=== PATIENT | female | born 1960 | race Caucasian/White ===

== ENCOUNTER 2017-02-19 15:30 | Outpatient (CLI) | payer BC, OTHER | END 2017-02-19 23:59 | DX: R10.2 Pelvic and perineal pain (principal); N39.0 Urinary tract infection, site not specified ==

== ENCOUNTER 2017-02-20 16:40 | Outpatient (CLI) | payer BC, OTHER | END 2017-02-20 16:41 | disposition home or self-care (01) | DX: R19.09 Other intra-abdominal and pelvic swelling, mass and lump (principal) ==

== ENCOUNTER 2017-03-12 10:42 | Outpatient (CLI) | payer OTHER | END 2017-03-12 10:43 | disposition home or self-care (01) | DX: R19.09 Other intra-abdominal and pelvic swelling, mass and lump (principal); E11.9 Type 2 diabetes mellitus without complications ==

== ENCOUNTER 2017-04-04 08:00 | Outpatient (CLI) | payer OTHER | END 2017-04-04 08:01 | disposition home or self-care (01) | DX: L03.90 Cellulitis, unspecified (principal) ==

== ENCOUNTER 2017-05-02 14:57 | Outpatient (CLI) | payer OTHER ==
--- NOTE | 2017-05-03 10:11 | Ultrasound Report ---
EXAM: ABDOMEN ULTRASOUND EXAM DATE: 05/02/2017 05:00 PM. CLINICAL HISTORY: Elevated liver function tests. COMPARISON: 03/02/2012. TECHNIQUE: Real-time scanning was performed with static images obtained. FINDINGS: Liver: Liver parenchyma is heterogeneous and markedly hyperechoic. No discrete liver masses or intr ahepatic bile duct dilation. However, evaluation for masses is limited secondary to the echogenicity . 19.9 cm. Main portal vein flow: Hepatopetal. Gallbladder: Surgically absent. Biliary System: Common bile duct measures 5.2 mm. No intrahepatic or extrahepatic ductal dilatation. Pancreas: Partially obscured by bowel gas. Kidneys: Right: 10.3 cm longitudinally. Normal. No contour-deforming mass, stones, or hydronephrosis. Cortical thinning is noted in the right upper kidney. Left: 10.8 cm longitudinally. Mild left pelviectasis. No left renal mass or stones. Spleen: 13.2 x 5.4 x 6 cm. Normal in size and echotexture. Aorta and Inferior Vena Cava: Partially obscured by bowel gas. IMPRESSION: 1. Markedly fatty liver. No mass. 2. Gallbladder surgically absent. No common bile duct dilation. 3. Pancreas partially obscured by bowel gas. [facility] Referring Provider Line: [phone] SITE ID: [id number]
== END 2017-05-02 14:58 | disposition home or self-care (01) ==
LOC: DI 14:57
PROVIDERS: ATTEND Internal Medicine Hematology & Oncology
DX: K76.0 Fatty (change of) liver, not elsewhere classified (principal); Z90.49 Acquired absence of other specified parts of digestive tract
CPT/HCPCS: 76700

== ENCOUNTER 2017-05-16 08:00 | Outpatient (CLI) | payer OTHER ==
[2017-05-16 13:27] LABS: BILIRUBIN,URINE NEGATIVE (NEGATIVE); PH,URINE 5.5 PH (5.0-7.5)
== END 2017-05-16 23:59 ==
LOC: LAB 08:00
PROVIDERS: ATTEND Surgery
DX: C56.9 Malignant neoplasm of unspecified ovary (principal)
CPT/HCPCS: 81003; 87086

== ENCOUNTER 2017-05-21 11:26 | Outpatient (CLI) | payer OTHER ==
[2017-05-21 12:05] LABS: BASOPHILS % (AUTO) 0.5 %; EOSINOPHILS # (AUTO) 0.2 10^3/uL (0.0-0.7); EOSINOPHILS % (AUTO) 5.3 %; HCT - HEMATOCRIT 30.4 % (37.0-47.0); LYMPHOCYTES # (AUTO) 1.1 10^3/uL (1.5-3.5); LYMPHOCYTES % (AUTO) 33.7 %; MEAN CORPUSCULAR HEMOGLOBIN 30.1 pg (27.0-31.0); MEAN CORPUSCULAR HGB CONC 36.1 g/dL (32.0-36.0); MEAN CORPUSCULAR VOLUME 83.5 fL (81.0-99.0); MEAN PLATELET VOLUME 7.9 fL (7.9-10.8); MONOCYTES # (AUTO) 0.3 10^3/uL (0.0-1.0); MONOCYTES % (AUTO) 9.8 %; NEUTROPHILS # (AUTO) 1.6 10^3/uL (1.5-6.6); NEUTROPHILS % (AUTO) 50.7 %; RED BLOOD COUNT 3.64 10^6/uL (4.20-5.40); RED CELL DISTRIBUTION WIDTH 13.8 % (12.0-15.0); UNCORRECTED WHITE BLOOD COUNT 3.2 x10^3/uL; WHITE BLOOD COUNT 3.2 x10^3/uL (4.8-10.8)
[2017-05-21 12:19] LABS: ALBUMIN/GLOBULIN RATIO 1.3 (1.0-2.2); BILIRUBIN,TOTAL 0.8 mg/dL (0.2-1.0); CALCIUM 8.5 mg/dL (8.5-10.3); CREATININE 0.9 mg/dL (0.4-1.0); POTASSIUM 2.8 mmol/L (3.5-5.0)
== END 2017-05-21 11:27 | disposition home or self-care (01) ==
LOC: LAB 11:26
PROVIDERS: ATTEND Physician Assistant Medical
DX: N28.9 Disorder of kidney and ureter, unspecified (principal)
CPT/HCPCS: 36415; 80053; 85025; 87086

== ENCOUNTER → 2017-05-23 | Outpatient (CLI) | payer OTHER ==
[2017-05-23 13:28] LABS: CALCIUM 8.6 mg/dL (8.5-10.3); CREATININE 0.7 mg/dL (0.4-1.0); MAGNESIUM 1.3 mg/dL (1.7-2.8); POTASSIUM 3.2 mmol/L (3.5-5.0)
== END ==
LOC: LAB.WCP 08:00
PROVIDERS: ATTEND Physician Assistant Medical
DX: N28.9 Disorder of kidney and ureter, unspecified (principal)
CPT/HCPCS: 36415; 80048; 83735

== ENCOUNTER 2017-06-02 12:35 | Day surgery (SDC) | payer OTHER ==
[~2017-06-02 12:35] MED LIST: ceFAZolin 2 GM/50 ML 50 ML IV ONE
[2017-06-02] MEDS ORDERED: LACTATED RINGERS 1,000 ML IV ONE ×2 (12:40→14:25)
[2017-06-02] MEDS ORDERED: SCOPOLAMINE PATCH TOP ONE (12:56)
--- NOTE | 2017-06-02 13:30 | HISTORY & PHYSICAL EXAMINATION ---
HPI - History of Present Illness HPI Comment/Other: Rosalia was recently diagnosed with ovarian cancer and underwent a total hysterectomy and oophrectomy last month. She is here today in consultation for port placement for intravenous chemotherapy. She has never had surgery on her chest wall or radiation to her chest wall. She denies any history of blood clots. She was on Lovenox after her surgery for prophylaxis but this has been discontinued. She was seen in my office last month and scheduled for surgery but developed a UTI and it was postponed. She has cleared her UTI with antibiotics and is now ready to proceed with the port. Current Meds: TRANSDERM-SCOP 1.5 MG PT72 (SCOPOLAMINE BASE) Place one disc behind ear at least four hours before travel and then every three days as needed for motion sickness BACTROBAN 2 % OINT (MUPIROCIN) Apply to affected areas three times daily VICTOZA 18 MG/3ML SOLN (LIRAGLUTIDE) Inject 1.8mg daily OMEPRAZOLE 20 MG CPDR (OMEPRAZOLE) Take one capsule by mouth daily NYSTATIN 013505 UNIT/GM POWD (NYSTATIN) Apply under breasts once daily as needed to prevent rash NYSTATIN 441719 UNIT/GM CREA (NYSTATIN) Apply to affected areas under breasts daily until symptoms resolved HYDROCHLOROTHIAZIDE 50 MG TABS (HYDROCHLOROTHIAZIDE) Take one tablet by mouth every morning ONETOUCH GOOMIO STRP (GLUCOSE BLOOD) Check sugar once daily (fasting or 2hrs after eating) LOSARTAN POTASSIUM 100 MG TABS (LOSARTAN POTASSIUM) Take one tablet by mouth daily PRAVACHOL 40 MG TABS (PRAVASTATIN SODIUM) Take one tablet by mouth at bedtime FELODIPINE 10 MG [id number]-FVJ (FELODIPINE) Take one tablet by mouth daily TOPROL XL 100 MG TB24 (METOPROLOL SUCCINATE) Take one tablet by mouth every day METFORMIN HCL 500 MG TABS (METFORMIN HCL) Take two tablets in the evening for diabetes ONETOUCH VERIO FLEX SYSTEM W/DEVICE KIT (BLOOD GLUCOSE MONITORING SUPPL) Test blood sugars once daily FLUTICASONE PROPIONATE 50 MCG/ACT SUSP (FLUTICASONE PROPIONATE) Use one spray each nostril twice daily Allergies: CEFDINIR (CEFDINIR) (Critical) PENICILLIN G POTASSIUM (Moderate) CLINDAMYCIN HCL (Moderate) Past Medical History: Reviewed history from 04/04/2017 and no changes required: HTN DM Hyperparathyroidism GERD Chronic diarrhea Diverticulosis (mild, CT abd/pel 2011) Ovarian ca 2017 - 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 Ojeda [facility] 2013 Cholecystectomy ? bladder sling Total abdominal hysterectomy, omentum removal, sigmoid resectionApr, 2016 No complications w/ surery or anesthesia Family History Summary: Reviewed history Last on 01/06/2014 and no changes required:05/02/2017 Mother () - Has a mother - Entered On: 03/12/2017 General Comments - FH: Mother. at 78, diabetes dx'd at 50, HTN, renal failure, TIAs, dementia Father. , murdered age 80. Hypertension stroke,CHF. Brother: HTN, HPL Brother: astranged Risk Factors: Smoked Tobacco Use: Never smoker Smokeless Tobacco Use: Never Passive smoke exposure: no Drug use: no HIV high-risk behavior: no Caffeine use: 2 drinks per day Alcohol use: no Exercise: no Seatbelt use: 100 % Sun Exposure: occasionally Family History Risk Factors: Family History of IN in females < 65 years old: no Family History of IN in males < 55 years old: no Previous Tobacco Use: Signed On - 03/26/2017 Smoked Tobacco Use: Never smoker Smokeless Tobacco Use: Never Passive smoke exposure: no Drug use: no HIV high-risk behavior: no Caffeine use: 2 drinks per day Previous Alcohol Use: Signed On 03/26/2017 Alcohol use: no Exercise: no Seatbelt use: 100 % Sun Exposure: occasionally Family History Risk Factors: Family History of IN in females < 65 years old: no Family History of IN in males < 55 years old: no Mammogram History: Date of Last Mammogram: 06/20/2015 Review of Systems See HPI General Denies fever/chills, Headaches or dizziness, Vision changes, Weight loss or gain, Nausea or vomiting, Cold or sore throat and Recent use of cortisone or Prednisone. Eyes Denies Difficulty seeing. ENT Denies Difficulty hearing, Hoarseness and Difficulty swallowing. CV Denies High blood presure, Chest pain or angina or other heart disease, Heart attack, Bypass surgery, Coronary stents, Irregular heartbeat or palpitations, Atrial fibrillation, Congestive Heart Failure, Heart valve disease , Pacemaker or defibrillator and Blood clots. Resp Denies Emphysema, Chronic bronchitis or COPD, Asthma or chronic cough, Cough sputum or blood, Sleep apnea or CPAP, Shortness of breath when resting and Shortness of breath after climbing 10 stairs. GI Denies Liver disease, Hepatitis A, Hepatitis B, Hepatitis C, Cirrhosis, Ulcers or GERD, Colitis and Abdominal pain. Acid Reflux Denies Difficulty urinating, Kidney stones kidney disease or failure, Sexually transmitted disease and Kidney or bladder infections. MS Denies Weakness arms or legs, Joint swelling, Joint deformity, Numbness, Gout and . Skin Denies Psoriasis or rash, Sores or cuts or holden and Other skin lesions. Neuro Denies Balance disturbance, Stroke or TIA, Numbness, Seizure disorder, Fainting spells and Neurological disease (Epilepsy or Parkinson's). Psych Denies Anxiety, Depression, Bipolar disorder and Schizophrenia. Endo Complains of Diabetes. Denies Thyroid problems. Blood Denies Anemia, Bleeding disorder, AIDS or HIV positive and Bleeding tendencies or easy bruising. Problems were reviewed with the patient during this visit. Medications were reviewed with the patient during this visit. Allergies were reviewed with the patient during this visit. Allergies: CEFDINIR (CEFDINIR) (Critical) PENICILLIN G POTASSIUM (Moderate) CLINDAMYCIN HCL (Moderate) Physical Exam General: well developed, well nourished, in no acute distress. obese. Lungs: clear bilaterally to A & P Heart: regular rate and rhythm, S1, S2 without murmurs, rubs, gallops, or clicks Abdomen: bowel sounds positive; abdomen soft and non-tender without masses, organomegaly, or hernias noted Pulses: pulses normal in all 4 extremities Extremities: no clubbing, cyanosis, edema, or deformity noted with normal full range of motion of all joints Cervical Nodes: no significant adenopathy Psych: alert and cooperative; normal mood and affect; normal attention span and concentration Impression & Recommendations: Problem # 1: Ovarian cancer Will proceed with port placement. 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, Oophrectomy, Other Meds/Allgy - Home Medications Home Medications: Ambulatory Orders Medication Instructions Recorded Confirmed Ondansetron HCl [Zofran] 4 mg PO Q4H PRN 04/24/17 06/02/17 Prochlorperazine Maleate 10 mg PO Q6H PRN 04/24/17 06/02/17 [Compazine] Cholecalciferol (Vitamin D3) 5,000 unit PO DAILY 04/27/17 06/02/17 [Vitamin D3] Docusate Sodium 250Mg Capsule 250 mg PO BID PRN 04/27/17 06/02/17 [Colace 250Mg Capsule] Felodipine [Felodipine ER] 10 mg PO DAILY PM 04/27/17 06/02/17 LORazepam [Ativan] 0.5 mg PO Q6H PRN 04/27/17 05/28/17 Lactobacillus Acidophilus 1 each PO DAILY 04/27/17 06/02/17 [Probiotic Acidophilus] Lidocaine/Prilocain 2.5% Cream 1 inch TOP PRN PRN 04/27/17 05/28/17 [Emla 2.5% Cream] Losartan [Cozaar] 100 mg PO DAILY 04/27/17 06/02/17 Metoprolol Succinate [Toprol Xl] 100 mg PO DAILY PM 04/27/17 06/02/17 Omeprazole [PriLOSEC] 20 mg PO DAILY 04/27/17 06/02/17 Pravastatin [Pravachol] 40 mg PO DAILY PM 04/27/17 06/02/17 Simethicone [Gas Relief] 80 mg PO Q6H PRN 04/27/17 06/02/17 hydroCHLOROthiazide [Hydrodiuril] 25 mg PO DAILY 04/27/17 06/02/17 Liraglutide [Victoza 2-Santiago] 0.6 mg SQ DAILY 05/07/17 06/02/17 Diclofen Sod/Kinesiology Tape 1 mg TOP QID 05/27/17 06/02/17 [Diclo Gel 1%-Xrylix Sheet Kit] Linagliptin [Tradjenta] 5 mg PO DAILY 05/27/17 06/02/17 Potassium Chloride [Micro-K] 1 cap PO DAILY 05/28/17 06/02/17 - Allergies Allergies/Adverse Reactions: Allergies Allergy/AdvReac Type Severity Reaction Status Date / Time paclitaxel [From Taxol] Allergy Severe Anaphylaxis Verified 05/07/17 13:56 cefdinir AdvReac Severe Nausea Verified 05/28/17 14:51 clindamycin AdvReac Severe Nausea Verified 05/28/17 14:51 levofloxacin AdvReac Intermediate Nausea Verified 05/28/17 14:51 sulfamethoxazole AdvReac Intermediate Hallucinati Verified 05/28/17 14:51 [From Bactrim] ons meloxicam AdvReac Mild Nausea Verified 05/28/17 14:51 Penicillins AdvReac Mild Nausea Verified 05/28/17 14:51 Exam - Vital Signs Vital Signs: Vital Signs x48h Temp Pulse Resp BP Pulse Ox 06/02/17 12:41 36.1 C L 123 H 18 156/82 H 98
[2017-06-02] MEDS ORDERED: BUPIVACAINE 0.5% PF 30 ML VIAL SUBQ ONE ×2 (13:43)
[2017-06-02] MEDS ORDERED: LIDOCAINE MPF 1%-EPI 1:200000 30 ML VIAL SUBQ ONE ×2 (13:43)
[2017-06-02] MEDS ORDERED: MIDAZOLAM 2 MG/2 ML VIAL IVP ONE (14:35)
[2017-06-02] MEDS ORDERED: METOPROLOL 5 MG/5 ML VIAL IVP ONE (14:35)
[2017-06-02] MEDS ORDERED: PROPOFOL 200 MG/20 ML VIAL IVP ONE (14:35)
[2017-06-02] MEDS ORDERED: LIDOCAINE-MPF 2% 5 ML VIAL IM ONE (14:35)
[2017-06-02] MEDS ORDERED: ACETAMINOPHEN 1,000 MG/100 ML 0 ML IV ONE (14:57)
[2017-06-02] MEDS ORDERED: ACETAMINOPHEN 325 MG TABLET PO ONE (14:58)
[2017-06-02 15:09] VITALS: BP 146/85
--- NOTE | 2017-06-02 16:26 | XRAY Report ---
FRONTAL CHEST: 06/02/2017 CLINICAL INDICATION: Port placement. FINDINGS: Frontal view of the chest demonstrates a normal cardiac silhouette. A left subclavian port terminates in the proximal right atrium. The lungs are clear. No effusion or pneumothorax is present . IMPRESSION: LEFT SUBCLAVIAN PORT TERMINATING IN THE PROXIMAL RIGHT ATRIUM. NO PNEUMOTHORAX. JOB #: [id number] EXT JOB #:[id number]
--- NOTE | 2017-06-03 01:52 | OPERATIVE REPORT ---
DATE OF SURGERY: 06/02/2017 00:00:00 PREOPERATIVE DIAGNOSIS: Ovarian cancer. POSTOPERATIVE DIAGNOSIS: Ovarian cancer. PROCEDURE: Port placement. SURGEON: Ninoska Aleman MD ANESTHESIA: By Camilla Beyer CRNA INDICATIONS FOR PROCEDURE: This is a 56-year-old female who presents with ovarian cancer undergoing chemotherapy and need for permanent IV access. FINDINGS: After obtaining informed consent, the patient was brought in to the operating room and positioned on the operating table in the supine position with a shoulder roll placed under her shoulders. Her neck was extended and rotated to the right. She was administered sedation. She was then prepped and draped in the usual sterile fashion, and a timeout was taken according to protocol. The landmarks were established, and using the access needle, the left subclavian vein was accessed on the first attempt. The guidewire was easily threaded. Fluoroscopy was performed, which demonstrated the guidewire crossing the midline down to the diaphragm. After instilling 30 mL of local anesthetic in the area, a 2 cm incision was created below the insertion site and the Port-A -Cath pocket created with blunt dissection and electrocautery. The tunneling device was then utilized to bring the catheter through the port pocket out to the insertion site after extending the insertion site slightly with a #11 blade. The tunneler was brought out through this incision. The Ndwq-H-Njuvlldc was then measured along the sternum for placement into the SVC-IVC junction under fluoroscopy. The dilator and sheath were then inserted over the guidewire in a Seldinger fashion and under fluoroscopic visualization to advance the sheath into the subclavian vein. This was done so without difficulty. The dilator and wire were completely removed and the catheter inserted into the sheath. The sheath was then peeled away, fluoroscopy was utilized to visualize the catheter, and its tip seemed to be slightly within the IVC, so it was withdrawn slightly until it appeared to be at the IVC-SVC junction. At this point, the distal end of the catheter was cut to an appropriate length and connected to the port. The port was then inserted into the pocket and sutured to the clavipectoral fascia with 2-0 Prolene. The Odonnell needle was utilized to access the port through the skin, and it was noted to flow easily and withdrew blood easily. The incision was then closed with 3-0 Vicryl in the skin incision, and the stab incision at the insertion site closed with 4-0 Monocryl. Dermabond was then applied. The patient was then taken to the recovery room in stable condition. ESTIMATED BLOOD LOSS: None. COMPLICATIONS: None. SPECIMENS: None. JOB #: [id number] EXT JOB #:[id number] MTDTristian
--- NOTE | 2017-06-04 07:29 | XRAY Report ---
INTRAOPERATIVE IMAGING OF PORT PLACEMENT: 06/02/2017 CLINICAL INDICATION: Port placement. FINDINGS: Intraoperative imaging of the left subclavian port was obtained. The port tip is in the di stal right atrium. Forty-eight seconds of fluoroscopy time was provided to Dr. Aleman. One spot image obtained. IMPRESSION: INTRAOPERATIVE IMAGING OF PORT PLACEMENT. DOCUMENTATION OF FLUOROSCOPY. JOB #: [id number] EXT JOB #:
== END 2017-06-02 12:36 | disposition home or self-care (01) ==
LOC: SDS 12:35
PROVIDERS: ATTEND Surgery
PROC: 0JH63XZ Insertion of Tunneled Vascular Access Device into Chest Subcutaneous Tissue and Fascia, Percutaneous Approach (ICD-10-PCS; principal; 2017-06-02 15:30)
DX: C56.9 Malignant neoplasm of unspecified ovary (principal); I10 Essential (primary) hypertension; E11.9 Type 2 diabetes mellitus without complications; Z79.84 Long term (current) use of oral hypoglycemic drugs; E21.3 Hyperparathyroidism, unspecified; K21.9 Gastro-esophageal reflux disease without esophagitis; Z90.49 Acquired absence of other specified parts of digestive tract; Z90.710 Acquired absence of both cervix and uterus; Z83.3 Family history of diabetes mellitus; Z82.3 Family history of stroke; Z82.49 Family history of ischemic heart disease and other diseases of the circulatory system; Z88.0 Allergy status to penicillin
CPT/HCPCS: 36561; 71010; A9270; C1788; J0690; J3490; J7120

== ENCOUNTER 2017-06-30 13:50 | Outpatient (CLI) | payer OTHER | END 2017-06-30 13:51 | disposition home or self-care (01) | LOC: LAB.R 13:50 | PROVIDERS: ATTEND Family Medicine | DX: N39.0 Urinary tract infection, site not specified (principal) | CPT/HCPCS: 87077; 87086 ==

== ENCOUNTER 2018-01-27 12:58 | Outpatient (CLI) | payer BC ==
[2018-01-27 14:40] LABS: BASOPHILS # (AUTO) 0.1 10^3/uL (0.0-0.1); EOSINOPHILS # (AUTO) 0.3 10^3/uL (0.0-0.7); EOSINOPHILS % (AUTO) 3.3 %; HGB - HEMOGLOBIN 13.1 g/dL (12.0-16.0); LYMPHOCYTES # (AUTO) 1.7 10^3/uL (1.5-3.5); LYMPHOCYTES % (AUTO) 19.4 %; MEAN CORPUSCULAR HEMOGLOBIN 31.9 pg (27.0-31.0); MEAN CORPUSCULAR VOLUME 91.1 fL (81.0-99.0); MEAN PLATELET VOLUME 6.9 fL (7.9-10.8); MONOCYTES # (AUTO) 0.7 10^3/uL (0.0-1.0); MONOCYTES % (AUTO) 8.1 %; NEUTROPHILS # (AUTO) 5.9 10^3/uL (1.5-6.6); NEUTROPHILS % (AUTO) 68.2 %; PLT - PLATELET COUNT 224 10^3/uL (130-450); RED BLOOD COUNT 4.09 10^6/uL (4.20-5.40); RED CELL DISTRIBUTION WIDTH 13.5 % (12.0-15.0); WHITE BLOOD COUNT 8.7 x10^3/uL (4.8-10.8)
[2018-01-27 15:01] LABS: HB2 TOTAL 14.2 g/dL; HEMOGLOBIN A1C 0.62 g/dL; HEMOGLOBIN A1C % 6.1 % (4.6-6.2)
[2018-01-27 15:05] LABS: % IRON SATURATION 20 % (20-50); ALBUMIN 4.5 g/dL (3.2-5.5); ALBUMIN/GLOBULIN RATIO 1.4 (1.0-2.2); ALKALINE PHOSPHATASE 64 IU/L (42-121); ALT ALANINE AMINOTRANSFERASE 26 IU/L (10-60); AST ASPARTATE AMINOTRANSFERASE 22 IU/L (10-42); BILIRUBIN,TOTAL 1.2 mg/dL (0.2-1.0); BUN - BLOOD UREA NITROGEN 25 mg/dL (6-20); CALCIUM 9.1 mg/dL (8.5-10.3); CARBON DIOXIDE - CO2 26 mmol/L (21-32); CHLORIDE 100 mmol/L (101-111); CREATININE 1.1 mg/dL (0.4-1.0); GFR - MDRD 51 (>89); GLUCOSE 138 mg/dL (70-100); IRON 64 ug/dL (28-170); SODIUM 137 mmol/L (135-145); TOTAL IRON BINDING CAPACITY 319 ug/dL (250-450); TOTAL PROTEIN 7.8 g/dL (6.7-8.2); TRANSFERRIN 228 mg/dL (192-382)
[2018-01-27 15:14] LABS: THYROID STIMULATING HORMONE 1.23 uIU/mL (0.34-5.60)
[2018-01-27 15:20] LABS: FERRITIN 301.6 ng/mL (11.0-306.8)
--- NOTE | 2018-01-28 16:33 | Mammography Report ---
DIGITAL SCREENING MAMMOGRAM: 01/27/2018 CLINICAL INDICATION: A 57-year-old with history of late childbearing, for screening. COMPARISON: 05/2015, 10/2013, 10/2011, 10/2010. TECHNIQUE: Routine CC and MLO projections were obtained of the breasts. FINDINGS: The breasts again demonstrate scattered fibroglandular densities bilaterally. Punctate, typically benign calcifications are present. No suspicious masses, clustered microcalcifications, or regions of architectural distortion are identified. IMPRESSION: BENIGN FINDINGS. RECOMMENDATION: ROUTINE ANNUAL SCREENING UNLESS OTHERWISE CLINICALLY INDICATED. BIRADS CATEGORY 2-BENIGN FINDINGS. STANDARD QUALIFYING STATEMENTS: 1. This examination was reviewed with the aid of Computer-Aided Detection (CAD). 2. A negative or benign imaging report should not delay biopsy if clinically suspicious findings are present. Consider surgical consultation if warranted. More than 5% of cancers are not identified by imaging. 3. Dense breasts may obscure an underlying neoplasm. TD: 01/28/2018 16:32
== END 2018-01-27 12:59 | disposition home or self-care (01) ==
LOC: DI 12:58
PROVIDERS: ATTEND Physician Assistant Medical
DX: Z12.31 Encounter for screening mammogram for malignant neoplasm of breast (principal); E11.9 Type 2 diabetes mellitus without complications; G62.9 Polyneuropathy, unspecified; D61.818 Other pancytopenia; D64.9 Anemia, unspecified
CPT/HCPCS: 36415; 77067; 80053; 82306; 82607; 82728; 83036; 83540; 84443; 84466; 85025

== ENCOUNTER 2018-01-27 13:26 | Outpatient (CLI) | payer BC ==
--- NOTE | 2018-01-27 19:02 | XRAY Report ---
BILATERAL THREE VIEW KNEES: 01/27/2018 CLINICAL INDICATION: Osteoarthritis. FINDINGS: Bilateral standing AP, lateral, sunrise views of the knees demonstrate mild right osteoarthritis. The left knee is unremarkable. No effusion is present on either side. There is no evidence of fracture or dislocation. IMPRESSION: MILD RIGHT KNEE OSTEOARTHRITIS. NORMAL LEFT KNEE. TD: 01/27/2018 19:00
== END 2018-01-27 13:27 | disposition home or self-care (01) ==
LOC: DI 13:26
PROVIDERS: ATTEND Physician Assistant Medical
DX: M17.11 Unilateral primary osteoarthritis, right knee (principal); M25.562 Pain in left knee

== ENCOUNTER 2018-08-13 08:00 | Outpatient (CLI) | payer BC ==
[2018-08-13 12:47] LABS: BASOPHILS % (AUTO) 0.4 %; EOSINOPHILS # (AUTO) 0.2 10^3/uL (0.0-0.7); EOSINOPHILS % (AUTO) 2.6 %; HGB - HEMOGLOBIN 12.7 g/dL (12.0-16.0); LYMPHOCYTES # (AUTO) 1.6 10^3/uL (1.5-3.5); LYMPHOCYTES % (AUTO) 16.7 %; MEAN CORPUSCULAR HEMOGLOBIN 32.7 pg (27.0-31.0); MEAN CORPUSCULAR HGB CONC 34.8 g/dL (32.0-36.0); MEAN CORPUSCULAR VOLUME 93.9 fL (81.0-99.0); MEAN PLATELET VOLUME 7.7 fL (7.9-10.8); MONOCYTES # (AUTO) 0.7 10^3/uL (0.0-1.0); MONOCYTES % (AUTO) 7.4 %; NEUTROPHILS # (AUTO) 6.8 10^3/uL (1.5-6.6); NEUTROPHILS % (AUTO) 72.9 %; PLT - PLATELET COUNT 247 10^3/uL (130-450); RED BLOOD COUNT 3.87 10^6/uL (4.20-5.40); RED CELL DISTRIBUTION WIDTH 13.4 % (12.0-15.0); WHITE BLOOD COUNT 9.4 x10^3/uL (4.8-10.8)
[2018-08-13 13:04] LABS: HB2 TOTAL 13.7 g/dL; HEMOGLOBIN A1C 0.61 g/dL; HEMOGLOBIN A1C % 6.2 % (4.6-6.2)
[2018-08-13 13:13] LABS: ALBUMIN 4.3 g/dL (3.2-5.5); ALBUMIN/GLOBULIN RATIO 1.3 (1.0-2.2); BILIRUBIN,TOTAL 0.8 mg/dL (0.2-1.0); TOTAL PROTEIN 7.6 g/dL (6.7-8.2)
[2018-08-13 13:23] LABS: CALCIUM 9.7 mg/dL (8.5-10.3)
== END 2018-08-13 08:01 | disposition home or self-care (01) ==
LOC: LAB.WCP 08:00
PROVIDERS: ATTEND Family Medicine
DX: E11.9 Type 2 diabetes mellitus without complications (principal); C56.9 Malignant neoplasm of unspecified ovary
CPT/HCPCS: 36415; 80053; 83036; 85025; 86304

== ENCOUNTER 2018-08-14 14:18 | Outpatient (CLI) | payer BC ==
[2018-08-14] MEDS ORDERED: IOPAMIDOL-300 100 ML VIAL ONE (14:27)
[2018-08-14] MEDS ORDERED: IOPAMIDOL-300 50 ML VIAL ONE (14:27)
[2018-08-14] MEDS ORDERED: IOPAMIDOL-300 50 ML VIAL PO ONE (15:49)
[2018-08-14] MEDS ORDERED: IOPAMIDOL-300 100 ML VIAL IVP ONE (15:49)
--- NOTE | 2018-08-15 09:27 | CT Report ---
Reason: OVARIAN CANCER, ABDOMINAL PAIN Procedure Date: 08/14/2018 Accession Number: [id number] / [id number] Procedure: CT - Abdomen/Pelvis W/ CPT Code: FULL RESULT: EXAM: CT ABDOMEN AND PELVIS EXAM DATE: 08/14/2018 03:45 PM. CLINICAL HISTORY: History of ovarian cancer, recent abdominal pain. COMPARISONS: abdomen/pelvis w/ 09/22/2017 11:11 AM. TECHNIQUE: Routine helical CT imaging was performed through the abdomen and pelvis. IV contrast: Isovue 300 100 mL. Enteric contrast: Yes. Reconstructions: Coronal and sagittal. In accordance with CT protocol optimization, one or more of the following dose reduction techniques were utilized for this exam: automated exposure control, adjustment of mA and/or KV based on patient size, or use of iterative reconstructive technique. FINDINGS: Lung Bases: Unremarkable. Liver: Normal. No masses. Gallbladder/Bile Ducts: The gallbladder is surgically absent. No biliary dilatation. Spleen: Normal. Pancreas: Normal. Adrenal Glands: Normal. Kidneys: Normal. No masses or hydronephrosis. Peritoneal Cavity/Bowel: Normal. No free fluid, free air or adenopathy. No masses or acute inflammatory process. There are findings suggestive of prior sigmoid colectomy. The appendix is well visualized and normal. Pelvic Organs: The uterus is surgically absent. The bladder and visualized pelvic organs are within normal limits. No pelvic mass. Vasculature: No aneurysms or other significant abnormality. Bones: There are chronic bilateral L5 pars defects. There is grade 1 anterolisthesis of L5 on S1 measuring approximately 6 mm, similar to prior. There is mild degenerative disk change at the L5-S1 level. No acute osseous abnormality. No lytic or sclerotic bone lesion. Other: There is a small fat-containing midline ventral abdominal wall hernia in the upper abdomen. The neck of the hernia measures proximally 2.5 cm. The hernia sac measures approximately 4.9 x 2.5 x 4.3 cm (series 3 image 30, and series 6 image 46), previously 3.2 x 1.1 x 2.7 cm on 09/22/2017. There is inflammatory fat stranding and trace fluid within the hernia sac. No bowel within or adjacent to the hernia. There appears to have been interval surgical repair of the more inferior previously seen small ventral hernia which previously contained bowel. There is mild irregularity of the anterior abdominal wall at this site but no definite hernia. IMPRESSION: 1. Small fat-containing ventral hernia in the upper abdomen. The size of the hernia sac has increased compared to the prior exam, and there is new mild inflammatory fat stranding and fluid within the hernia sac. This could be due to ischemia of fat within the hernia sac and may be a source of abdominal pain. 2. Apparent interval repair of the previously seen small bowel-containing ventral hernia located more inferiorly. No evidence of bowel obstruction. 3. Status post cholecystectomy and hysterectomy. No intra-abdominal lymphadenopathy, mass, ascites, or other evidence of recurrent or metastatic cancer. [facility]
== END 2018-08-14 14:19 | disposition home or self-care (01) ==
LOC: DI 14:18
PROVIDERS: ATTEND Family Medicine
DX: K43.9 Ventral hernia without obstruction or gangrene (principal); Z90.49 Acquired absence of other specified parts of digestive tract; Z90.710 Acquired absence of both cervix and uterus
CPT/HCPCS: 74177; Q9967

== ENCOUNTER 2018-10-24 16:26 | Emergency (ER) | payer BC ==
[2018-10-24 17:24] LABS: BASOPHILS % (AUTO) 0.3 %; EOSINOPHILS % (AUTO) 0.1 %; HGB - HEMOGLOBIN 14.8 g/dL (12.0-16.0); LYMPHOCYTES # (AUTO) 1.1 10^3/uL (1.5-3.5); LYMPHOCYTES % (AUTO) 6.7 %; MEAN CORPUSCULAR HEMOGLOBIN 30.4 pg (27.0-31.0); MEAN CORPUSCULAR HGB CONC 32.8 g/dL (32.0-36.0); MEAN CORPUSCULAR VOLUME 92.6 fL (81.0-99.0); MEAN PLATELET VOLUME 7.4 fL (7.9-10.8); MONOCYTES # (AUTO) 1.5 10^3/uL (0.0-1.0); MONOCYTES % (AUTO) 9.2 %; NEUTROPHILS # (AUTO) 13.7 10^3/uL (1.5-6.6); NEUTROPHILS % (AUTO) 83.7 %; PLT - PLATELET COUNT 422 10^3/uL (130-450); RED BLOOD COUNT 4.86 10^6/uL (4.20-5.40); RED CELL DISTRIBUTION WIDTH 13.7 % (12.0-15.0); WHITE BLOOD COUNT 16.3 x10^3/uL (4.8-10.8)
[2018-10-24 17:38] LABS: ALBUMIN 4.8 g/dL (3.2-5.5); ALBUMIN/GLOBULIN RATIO 1.3 (1.0-2.2); BILIRUBIN,TOTAL 1.1 mg/dL (0.2-1.0); CALCIUM 10.1 mg/dL (8.5-10.3); TOTAL PROTEIN 8.5 g/dL (6.7-8.2)
[2018-10-24] MEDS ORDERED: SODIUM CHLORIDE 0.9% 1,000 ML IV ONE ×3 (18:23→20:26)
--- NOTE | 2018-10-24 18:25 | ED Physician Documentation ---
PD HPI ABD PAIN - Stated complaint Stated Complaint: N/V/PRE SURGERY FOR OVARIAN CA - Chief complaint Chief Complaint: Abd Pain - History obtained from History obtained from: Patient - History of Present Illness Timing - onset: Other (She was diagnosed with ovarian cancer with omental metastases early last year. She had a total hysterectomy with lymph node dissection and omentectomy at [facility] by Dr. Alvarado and then that was followed by chemotherapy which she finished up about 13 months ago. She was recently diagnosed with a recurrence and is scheduled for a repeat surgery but over the last 4 days has lacked bowel movements or flatus and developed crampy diffuse at times severe abdominal pain over the last 2 days with vomiting but no nausea. Her pain is tolerable right now and she declines pain medication. She tried a laxative without relief.) Review of Systems Ten Systems: 10 systems reviewed and negative Constitutional: denies: Fever, Chills Cardiac: denies: Chest pain / pressure, Palpitations Respiratory: denies: Dyspnea, Cough GI: reports: Abdominal Pain, Abdominal Swelling, Vomiting, Constipation. denies: Nausea, Diarrhea, Hematemesis, Bloody / black stool : denies: Dysuria, Frequency PD PAST MEDICAL HISTORY - Past Medical History Cardiovascular: Hypertension Respiratory: None Endocrine/Autoimmune: Type 2 diabetes GI: GERD : None Psych: None Musculoskeletal: Osteoarthritis Derm: None - Past Surgical History General: Cholecystectomy /CUSTODIAN BLOOD BANK: Hysterectomy, Oophrectomy, Other - Present Medications Home Medications: Ambulatory Orders Medication Instructions Recorded Confirmed Cholecalciferol (Vitamin D3) 5,000 unit PO DAILY 04/27/17 04/28/18 [Vitamin D3] Felodipine [Felodipine ER] 10 mg PO DAILY PM 04/27/17 04/28/18 Lactobacillus Acidophilus 1 each PO DAILY 04/27/17 04/28/18 [Probiotic Acidophilus] Losartan [Cozaar] 100 mg PO DAILY 04/27/17 04/28/18 Metoprolol Succinate [Toprol Xl] 100 mg PO DAILY PM 04/27/17 04/28/18 RX: Pravastatin [Pravachol] 40 mg PO DAILY PM 04/27/17 04/28/18 hydroCHLOROthiazide [Hydrodiuril] 25 mg PO DAILY 04/27/17 04/28/18 Liraglutide [Victoza 2-Santiago] 1.8 mg SQ DAILY 05/07/17 04/28/18 Celecoxib [Celebrex] 200 mg PO DAILY 06/10/17 04/28/18 Omeprazole [PriLOSEC] 1 cap PO DAILY 01/27/18 04/28/18 - Allergies Allergies/Adverse Reactions: Allergies Allergy/AdvReac Type Severity Reaction Status Date / Time paclitaxel [From Taxol] Allergy Severe Anaphylaxis Verified 10/24/18 16:39 cefdinir AdvReac Severe Nausea Verified 10/24/18 16:39 clindamycin AdvReac Severe Nausea Verified 10/24/18 16:39 levofloxacin AdvReac Intermediate Nausea Verified 10/24/18 16:39 sulfamethoxazole AdvReac Intermediate Hallucinati Verified 10/24/18 16:39 [From Bactrim] ons meloxicam AdvReac Mild Nausea Verified 10/24/18 16:39 Penicillins AdvReac Mild Nausea Verified 10/24/18 16:39 - Living Situation Living Situation: reports: With family - Social History Does the pt drink ETOH?: No Does the pt have substance abuse?: No - Family History Family history: reports: Non contributory PD ED PE NORMAL - Vitals Vital signs reviewed: Yes - General General: Alert and oriented X 3, No acute distress - HEENT HEENT: PERRL, EOMI - Neck Neck: Supple, no meningeal sign, No bony TTP - Cardiac Cardiac: RRR, No murmur - Respiratory Respiratory: No respiratory distress, Clear bilaterally - Abdomen Abdomen: Other (She has absent bowel tones with mild diffuse tenderness but no surgical signs) - Back Back: No CVA TTP, No spinal TTP - Derm Derm: Normal color, Warm and dry - Extremities Extremities: No deformity, No edema, No calf tenderness / cord - Neuro Neuro: Alert and oriented X 3, Normal speech Results - Vitals Vitals: Vital Signs - 24 hr 10/24/18 10/24/18 16:35 19:35 Temperature 35.7 C L 37.1 C Heart Rate 108 H 90 Respiratory 16 16 Rate Blood Pressure 143/87 H 144/84 H O2 Saturation 97 97 Oxygen O2 Source Room air - Labs Labs: Laboratory Tests 10/24/18 10/24/18 10/24/18 17:03 17:03 21:15 WBC 16.3 H RBC 4.86 Hgb 14.8 Hct 45.0 MCV 92.6 MCH 30.4 MCHC 32.8 RDW 13.7 Plt Count 422 MPV 7.4 L Neut # (Auto) 13.7 H Lymph # (Auto) 1.1 L [place] # (Auto) 1.5 H Eos # (Auto) 0.0 Baso # (Auto) 0.0 Absolute Nucleated RBC 0.01 Nucleated RBC % 0.0 Sodium 136 Potassium 3.6 Chloride 91 L Carbon Dioxide 29 Anion Gap 16.0 H BUN 61 H Creatinine 2.0 H Estimated GFR (MDRD) 26 L Glucose 213 H Lactic Acid 1.2 Calcium 10.1 Total Bilirubin 1.1 H AST 15 ALT 19 Alkaline Phosphatase 66 Total Protein 8.5 H Albumin 4.8 Globulin 3.7 Albumin/Globulin Ratio 1.3 Lipase 34 - Rads (name of study) CT A/P Radiology: EMP read contemporaneously (Mild ascites and left upper quadrant omental Nodularity suspicious for disease recurrence with mid to distal small bowel obstruction there is a supraumbilical hernia but this is not clearly the cause of the obstruction.) PD MEDICAL DECISION MAKING - ED course ED course: 58-year-old woman with history of recurrence ovarian cancer presents with signs and symptoms consistent with bowel obstruction. She is found to have acute renal failure with a prerenal azotemia which should be easily treatable with IV fluids. CT was done without IV contrast. Showing not unexpected bowel obstruction. Given her status probably needs transfer to a tertiary facility with gynecology oncology coverage and the patient request transfer to [facility], she was accepted there by Dr. Cutler and cobras were completed. Departure - Departure Disposition: 02 Transfer Acute Care Hosp Clinical Impression: Bowel obstruction, Ovarian cancer, Renal failure Condition: Serious
[2018-10-24] MEDS ORDERED: IOVERSOL 320 50 ML VIAL ONE (18:59)
[2018-10-24] MEDS ORDERED: IOVERSOL 320 50 ML VIAL PO ONE (20:25)
[2018-10-24] MEDS ORDERED: ACETAMINOPHEN 1,000 MG/100 ML 100 ML IV STA (20:26)
--- NOTE | 2018-10-24 20:40 | CT Report ---
Reason: PO contrast, abd pain, ?SBO Procedure Date: 10/24/2018 Accession Number: [id number] / [id number] Procedure: CT - Abdomen/Pelvis W/O CPT Code: FULL RESULT: EXAM: CT ABDOMEN AND PELVIS EXAM DATE: 10/24/2018 07:58 PM. CLINICAL HISTORY: PO contrast, abdominal pain, Question small bowel obstruction. Ovarian cancer. COMPARISONS: Abdomen/pelvis with contrast 08/14/2018 3:45 PM. TECHNIQUE: Routine helical CT imaging was performed through the abdomen and pelvis. IV contrast: No. Enteric contrast: Yes. Reconstructions: Coronal and sagittal. In accordance with CT protocol optimization, one or more of the following dose reduction techniques were utilized for this exam: automated exposure control, adjustment of mA and/or KV based on patient size, or use of iterative reconstructive technique. FINDINGS: Lung Bases: Unremarkable. Liver: The unenhanced liver is unremarkable. Gallbladder/Bile Ducts: The gallbladder has been removed. There is no bile duct dilatation. Spleen: Normal. Pancreas: Normal. Adrenal Glands: Normal. Kidneys: Normal. No masses or hydronephrosis. Peritoneal Cavity/Bowel: There is new, mild ascites. Left upper quadrant omental soft tissue nodularity noted. Moderate small bowel dilatation with collapse of the distal ileum. There is a supraumbilical ventral hernia containing a short segment of small bowel however it is uncertain if this represents the transition point. Pelvic Organs: The uterus has been removed. The urinary bladder is unremarkable. Vasculature: No aneurysms or other significant abnormality. Bones: No significant abnormality. Other: None. IMPRESSION: 1. Mild ascites and left upper quadrant omental nodularity suspicious for disease recurrence. 2. Mid to distal small bowel obstruction possibly due to adhesions or tumor. There is a midline supraumbilical hernia containing a short segment of small bowel however this is not clearly the cause of obstruction. RADIA
[2018-10-24] MEDS ORDERED: LIDOCAINE 2% URO-JET 5 ML SYRINGE UR STA (21:02)
[2018-10-24] MEDS ORDERED: SCOPOLAMINE PATCH TOP STA (22:01)
[2018-10-24] MEDS ORDERED: ONDANSETRON 4 MG/2 ML VIAL IVP STA (22:01)
[2018-10-24 22:40] VITALS: BP 141/80
== END 2018-10-24 23:15 | disposition short-term general hospital (02) ==
LOC: ED 16:26
DX: K56.609 Unspecified intestinal obstruction, unspecified as to partial versus complete obstruction (principal); C56.9 Malignant neoplasm of unspecified ovary; N17.9 Acute kidney failure, unspecified; R79.89 Other specified abnormal findings of blood chemistry; Z90.710 Acquired absence of both cervix and uterus; Z90.721 Acquired absence of ovaries, unilateral; Z92.21 Personal history of antineoplastic chemotherapy
CPT/HCPCS: 36415; 74176; 80053; 83605; 83690; 85025; 96361; 96365; 96375; 99284; 99285; J0131; J3490; 81001; 81003; 87086

== ENCOUNTER 2018-10-24 23:03 | Outpatient (CLI) | payer BC | END 2018-10-24 23:04 | disposition short-term general hospital (02) | LOC: EMS 23:03 | PROVIDERS: ATTEND Surgery | DX: K56.609 Unspecified intestinal obstruction, unspecified as to partial versus complete obstruction (principal) | CPT/HCPCS: A0170; A0425; A0426 ==

== ENCOUNTER 2019-01-22 10:54 | Outpatient (CLI) | payer BC ==
[2019-01-22 16:11] LABS: BILIRUBIN,URINE NEGATIVE (NEGATIVE); GLUCOSE, URINE (UA) NEGATIVE (NEGATIVE); KETONES,URINE (UA) NEGATIVE (NEGATIVE); LEUKOCYTE ESTERASE, URINE SMALL (NEGATIVE); NITRITE,URINE POSITIVE (NEGATIVE); OCCULT BLOOD,URINE NEGATIVE (NEGATIVE); PROTEIN,URINE NEGATIVE (NEGATIVE); UROBILINOGEN,URINE 1 (NORMAL) E.U./dL (NORMAL)
[2019-01-22 16:13] LABS: CLARITY,URINE HAZY (CLEAR)
[2019-01-22 16:27] LABS: BACTERIA,URINE Few /HPF (None Seen); RBC,URINE 0-5 /HPF (0-5); SQUAMOUS EPITHELIAL CELL,UR FEW Squamous (<= Few)
== END 2019-01-22 23:59 | disposition home or self-care (01) ==
LOC: LAB.R 10:54
PROVIDERS: ATTEND Specialist
DX: R35.0 Frequency of micturition (principal)
CPT/HCPCS: 81001; 81003; 87086

== ENCOUNTER 2019-02-10 09:04 | Outpatient (CLI) | payer BC ==
[2019-02-10 11:48] LABS: BILIRUBIN,URINE NEGATIVE (NEGATIVE); GLUCOSE, URINE (UA) NEGATIVE (NEGATIVE); KETONES,URINE (UA) NEGATIVE (NEGATIVE); LEUKOCYTE ESTERASE, URINE TRACE (NEGATIVE); NITRITE,URINE NEGATIVE (NEGATIVE); OCCULT BLOOD,URINE NEGATIVE (NEGATIVE); PH,URINE 7.5 PH (5.0-7.5); PROTEIN,URINE NEGATIVE (NEGATIVE); UROBILINOGEN,URINE 1 (NORMAL) E.U./dL (NORMAL)
[2019-02-10 12:01] LABS: AMORPHOUS SEDIMENT,UR Moderate /LPF; BACTERIA,URINE Few /HPF (None Seen); CLARITY,URINE SL. CLOUDY (CLEAR); RBC,URINE 0-5 /HPF (0-5); SQUAMOUS EPITHELIAL CELL,UR RARE Squamous (<= Few)
== END 2019-02-10 23:59 ==
LOC: LAB.R 09:04
PROVIDERS: ATTEND Specialist
DX: R30.9 Painful micturition, unspecified (principal); R35.0 Frequency of micturition
CPT/HCPCS: 81001; 87086

== ENCOUNTER 2019-03-15 08:00 | Outpatient (CLI) | payer BC ==
[2019-03-15 18:02] LABS: BASOPHILS % (AUTO) 0.9 %; EOSINOPHILS % (AUTO) 0.2 %; LYMPHOCYTES # (AUTO) 0.5 10^3/uL (1.5-3.5); LYMPHOCYTES % (AUTO) 16.7 %; MEAN CORPUSCULAR HEMOGLOBIN 32.2 pg (27.0-31.0); MEAN CORPUSCULAR VOLUME 94.8 fL (81.0-99.0); MEAN PLATELET VOLUME 9.7 fL (7.9-10.8); MONOCYTES # (AUTO) 0.5 10^3/uL (0.0-1.0); MONOCYTES % (AUTO) 16.2 %; NEUTROPHILS # (AUTO) 1.9 10^3/uL (1.5-6.6); PLT - PLATELET COUNT 36 10^3/uL (130-450); RED BLOOD COUNT 1.97 10^6/uL (4.20-5.40); RED CELL DISTRIBUTION WIDTH 17.9 % (12.0-15.0); WHITE BLOOD COUNT 2.8 x10^3/uL (4.8-10.8)
[2019-03-15 18:13] LABS: HGB - HEMOGLOBIN 6.3 g/dL (12.0-16.0)
[2019-03-15 18:45] LABS: ALBUMIN 2.4 g/dL (3.2-5.5); ALBUMIN/GLOBULIN RATIO 0.8 (1.0-2.2); BILIRUBIN,TOTAL 1.2 mg/dL (0.2-1.0); CALCIUM 8.6 mg/dL (8.5-10.3); CREATININE 0.7 mg/dL (0.4-1.0); MAGNESIUM 1.5 mg/dL (1.7-2.8); PHOSPHORUS 3.3 mg/dL (2.5-4.6); TOTAL PROTEIN 5.3 g/dL (6.7-8.2)
[2019-03-15 21:05] LABS: DIFFERENTIAL COMMENT MANUAL=AUTO DIFF; PLATELET ESTIMATE, MANUAL DECREASED (<130,000) (NORMAL); PLATELET MORPHOLOGY NORMAL APPEARANCE (NORMAL)
== END 2019-03-15 23:59 | disposition home or self-care (01) ==
LOC: LAB.R 08:00
PROVIDERS: ATTEND Specialist
DX: K56.609 Unspecified intestinal obstruction, unspecified as to partial versus complete obstruction (principal); K43.2 Incisional hernia without obstruction or gangrene
CPT/HCPCS: 80053; 83735; 84100; 84478; 85025

== ENCOUNTER 2019-03-19 21:34 | Inpatient (IN) | payer BC ==
--- NOTE | 2019-03-19 23:46 | ED Physician Documentation ---
PD HPI FEVER - Stated complaint Stated Complaint: FEVER - Chief complaint Chief Complaint: Fever - History obtained from History obtained from: Patient, Family - History of Present Illness Timing - onset: Enter time (1700), Today Timing duration: Hours Timing details: Abrupt onset, Now resolved Associated symptoms: Chills, Sweats Contributing factors: Immunocompromised, Other (has had a transfusion yesterday) Similar symptoms before: Has not had sx before Recently seen: Other - Additional information Additional information: 58-year-old female with recurrent ovarian cancer and a recent bowel obstruction is on TPN and has had a G-tube in place for drainage of gastric contents and she was in to [facility] yesterday for a transfusion of packed red cells. This evening her friends came to see her and woke her up and noted that she had a fever. The patient states that it this time she feels well and does not have any other specific symptoms. She denies any cough or congestion she denies any vomiting she denies any pains she denies any diarrhea. She denies any nasal congestion ear pain or sore throat. She has not had a transfusion previously. Review of Systems Constitutional: reports: Fever, Chills, Sweats Eyes: denies: Decreased vision Ears: denies: Ear pain Nose: denies: Rhinorrhea / runny nose, Congestion Throat: denies: Sore throat Cardiac: denies: Chest pain / pressure, Palpitations Respiratory: denies: Dyspnea, Cough GI: denies: Abdominal Pain, Nausea, Vomiting : denies: Dysuria, Frequency Skin: reports: Lesions (right great toe area of redness/black ? related to chemo). 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 CLERK: Ovarian cancer : None HEENT: None Psych: None Musculoskeletal: Osteoarthritis Derm: None - Past Surgical History Past Surgical History: Yes General: Cholecystectomy /BANK CLERK: Hysterectomy, Oophrectomy, Other - Present Medications Home Medications: Ambulatory Orders Medication Instructions Recorded Confirmed Cholecalciferol (Vitamin D3) 5,000 unit PO DAILY 04/27/17 04/28/18 [Vitamin D3] Felodipine [Felodipine ER] 10 mg PO DAILY PM 04/27/17 04/28/18 Lactobacillus Acidophilus 1 each PO DAILY 04/27/17 04/28/18 [Probiotic Acidophilus] Losartan [Cozaar] 100 mg PO DAILY 04/27/17 04/28/18 Metoprolol Succinate [Toprol Xl] 100 mg PO DAILY PM 04/27/17 04/28/18 Pravastatin [Pravachol] 40 mg PO DAILY PM 04/27/17 04/28/18 hydroCHLOROthiazide [Hydrodiuril] 25 mg PO DAILY 04/27/17 04/28/18 Liraglutide [Victoza 2-Santiago] 1.8 mg SQ DAILY 05/07/17 04/28/18 Celecoxib [Celebrex] 200 mg PO DAILY 06/10/17 04/28/18 Omeprazole [PriLOSEC] 1 cap PO DAILY 01/27/18 04/28/18 - Allergies Allergies/Adverse Reactions: Allergies Allergy/AdvReac Type Severity Reaction Status Date / Time paclitaxel [From Taxol] Allergy Severe Anaphylaxis Verified 10/24/18 16:39 cefdinir AdvReac Severe Nausea Verified 10/24/18 16:39 clindamycin AdvReac Severe Nausea Verified 10/24/18 16:39 levofloxacin AdvReac Intermediate Nausea Verified 10/24/18 16:39 sulfamethoxazole AdvReac Intermediate Hallucinati Verified 10/24/18 16:39 [From Bactrim] ons meloxicam AdvReac Mild Nausea Verified 10/24/18 16:39 Penicillins AdvReac Mild Nausea Verified 10/24/18 16:39 metformin AdvReac severe abd Verified 12/09/18 13:36 pain - Social History Does the pt smoke?: No Smoking Status: Never smoker Does the pt drink ETOH?: No Does the pt have substance abuse?: No - Immunizations Immunizations are current?: Yes - POLST Patient has POLST: No PD ED PE NORMAL - Vitals Vital signs reviewed: Yes (tachy and hypertensive afebrile ) - General General: Alert and oriented X 3, No acute distress, Well developed/nourished - HEENT HEENT: Atraumatic, PERRL, EOMI, Ears normal, Moist mucous membranes, Pharynx benign, Dentition benign - Neck Neck: Supple, no meningeal sign, No bony TTP - Cardiac Cardiac: RRR, No murmur - Respiratory Respiratory: No respiratory distress, Clear bilaterally - Abdomen Abdomen: Soft, Non tender, Other (site of prior G-tube is with minimal surrounding eyrthema and is non-tender. There is no drainge currently there is scant drainage periodically ) - Derm Derm: Normal color, Warm and dry, No rash - Extremities Extremities: No deformity, No edema, Other (on the right 5th toe there is an area of dark erythema. non-tender and without drainage. ? necrotic tissue) - Neuro Neuro: Alert and oriented X 3, cookie breaker 2-12 intact, No motor deficit, No sensory deficit, Normal speech Eye Opening: Spontaneous Motor: Obeys Commands Verbal: Oriented GCS Score: 15 - Psych Psych: Normal mood, Normal affect Results - Vitals Vitals: Vital Signs - 24 hr 03/19/19 03/19/19 03/20/19 21:43 21:47 00:25 Temperature 36.4 C L 36.4 C L 36.2 C L Heart Rate 111 H 111 H 108 H Respiratory 17 17 20 Rate Blood Pressure 150/94 H 150/94 H 165/91 H O2 Saturation 99 99 98 03/20/19 03/20/19 03/20/19 00:47 01:42 02:44 Temperature 37.7 C H Heart Rate 129 H Respiratory 17 16 17 Rate Blood Pressure 164/116 H O2 Saturation 99 03/20/19 02:54 Temperature Heart Rate Respiratory 16 Rate Blood Pressure O2 Saturation Oxygen O2 Source Room air - Labs Labs: Laboratory Tests 03/20/19 03/20/19 03/20/19 00:00 00:06 00:30 WBC 4.9 RBC 2.99 L Hgb 9.3 L Hct 27.5 L MCV 91.9 MCH 31.3 H MCHC 34.0 RDW 18.2 H Plt Count 46 L MPV 8.7 Neut # (Auto) 3.9 Lymph # (Auto) 0.5 L [place] # (Auto) 0.5 Eos # (Auto) 0.0 Baso # (Auto) 0.0 Absolute Nucleated RBC 0.01 Nucleated RBC % 0.1 Sodium 130 L Potassium 3.8 Chloride 98 L Carbon Dioxide 21 Anion Gap 11.0 BUN 25 H Creatinine 0.7 Estimated GFR (MDRD) 86 L Glucose 191 H Lactic Acid Calcium 9.0 Total Bilirubin 1.5 H AST 45 H ALT 60 Alkaline Phosphatase 116 Troponin I Total Protein 7.1 Albumin 2.9 L Globulin 4.2 Albumin/Globulin Ratio 0.7 L Lipase 32 Urine Color YELLOW Urine Clarity CLEAR Urine pH 6.0 Ur Specific [place] <=1.005 Urine Protein NEGATIVE Urine Glucose (UA) 250 H Urine Ketones NEGATIVE Urine Occult Blood NEGATIVE Urine Nitrite NEGATIVE Urine Bilirubin NEGATIVE Urine Urobilinogen 1 (NORMAL) Ur Leukocyte Esterase NEGATIVE Ur Microscopic Review NOT INDICATED Urine Culture Comments NOT INDICATED 03/20/19 03/20/19 00:30 00:30 WBC RBC Hgb Hct MCV MCH MCHC RDW Plt Count MPV Neut # (Auto) Lymph # (Auto) [place] # (Auto) Eos # (Auto) Baso # (Auto) Absolute Nucleated RBC Nucleated RBC % Sodium Potassium Chloride Carbon Dioxide Anion Gap BUN Creatinine Estimated GFR (MDRD) Glucose Lactic Acid 1.4 Calcium Total Bilirubin AST ALT Alkaline Phosphatase Troponin I < 0.04 Total Protein Albumin Globulin Albumin/Globulin Ratio Lipase Urine Color Urine Clarity Urine pH Ur Specific [place] Urine Protein Urine Glucose (UA) Urine Ketones Urine Occult Blood Urine Nitrite Urine Bilirubin Urine Urobilinogen Ur Leukocyte Esterase Ur Microscopic Review Urine Culture Comments - Rads (name of study) chest 2 view Radiology: Prelim report reviewed (Impression: New right hilar fullness, suspicious for adenopathy. No evidence of acute cardiopulmonary disease.), EMP read indepedently, See rad report Procedures - IVC sono (time) 0120 Bedside IVC sono: IVC measures (cm) (1.12), Dehydration (est 1 liter deficit) PD MEDICAL DECISION MAKING - ED course Complexity details: reviewed old records, reviewed results, re-evaluated patient, considered differential, d/w patient, d/w family ED course: 58-year-old female on TPN with a history of recurrent ovarian cancer has developed shaking chills and fever and on arrival to the emergency department the patient appears well and during her stay she developed chills again and her temperature begins to rise. Her urine and chest are unremarkable she does have a port in place that terminates in the right atrium and she is mildly dehydrated. She is administered saline blood cultures were obtained peripherally and from the port and I have asked Dr. Osorio to put the patient into the hospital for IV antibiotic while awaiting culture results. She does have 2 areas on her right foot that are potential for septic emboli raising the suspicion. Departure - Departure Disposition: ED Place in Observation Clinical Impression: Febrile disorder
--- NOTE | 2019-03-20 00:12 | XRAY Report ---
Reason: fever Procedure Date: 03/20/2019 Accession Number: [id number] / [id number] Procedure: XR - Chest 2 View X-Ray CPT Code: 87858 FULL RESULT: EXAM: CHEST RADIOGRAPHY EXAM DATE: 03/19/2019 11:43 PM. CLINICAL HISTORY: Fever. COMPARISON: CHEST 1 VIEW 06/02/2017 3:01 PM CHEST W/ 09/22/2017 11:11 AM. TECHNIQUE: 2 views. FINDINGS: Lungs/Pleura: Minimal linear scarring or atelectasis at the bases. No focal infiltrate, effusion, or pneumothorax. Mediastinum: New right hilar fullness, suspicious for adenopathy. No cardiomegaly. Other: Right jugular port terminating in the right atrium. IMPRESSION: New right hilar fullness, suspicious for adenopathy. No evidence of acute cardiopulmonary disease. RADIA
[2019-03-20 00:13] LABS: BILIRUBIN,URINE NEGATIVE (NEGATIVE); GLUCOSE, URINE (UA) 250 mg/dL (NEGATIVE); KETONES,URINE (UA) NEGATIVE (NEGATIVE); LEUKOCYTE ESTERASE, URINE NEGATIVE (NEGATIVE); NITRITE,URINE NEGATIVE (NEGATIVE); OCCULT BLOOD,URINE NEGATIVE (NEGATIVE); PROTEIN,URINE NEGATIVE (NEGATIVE); UROBILINOGEN,URINE 1 (NORMAL) E.U./dL (NORMAL)
[2019-03-20 00:15] LABS: CLARITY,URINE CLEAR (CLEAR)
[2019-03-20 00:55] LABS: ALBUMIN 2.9 g/dL (3.2-5.5); ALBUMIN/GLOBULIN RATIO 0.7 (1.0-2.2); BILIRUBIN,TOTAL 1.5 mg/dL (0.2-1.0); CREATININE 0.7 mg/dL (0.4-1.0); TOTAL PROTEIN 7.1 g/dL (6.7-8.2)
[2019-03-20 00:59] LABS: BASOPHILS % (AUTO) 0.1 %; EOSINOPHILS % (AUTO) 0.1 %; HGB - HEMOGLOBIN 9.3 g/dL (12.0-16.0); LYMPHOCYTES # (AUTO) 0.5 10^3/uL (1.5-3.5); LYMPHOCYTES % (AUTO) 9.7 %; MEAN CORPUSCULAR HEMOGLOBIN 31.3 pg (27.0-31.0); MEAN CORPUSCULAR VOLUME 91.9 fL (81.0-99.0); MEAN PLATELET VOLUME 8.7 fL (7.9-10.8); MONOCYTES # (AUTO) 0.5 10^3/uL (0.0-1.0); MONOCYTES % (AUTO) 10.2 %; NEUTROPHILS # (AUTO) 3.9 10^3/uL (1.5-6.6); NEUTROPHILS % (AUTO) 79.9 %; PLT - PLATELET COUNT 46 10^3/uL (130-450); RED BLOOD COUNT 2.99 10^6/uL (4.20-5.40); RED CELL DISTRIBUTION WIDTH 18.2 % (12.0-15.0); WHITE BLOOD COUNT 4.9 x10^3/uL (4.8-10.8)
[2019-03-20] MEDS ORDERED: SODIUM CHLORIDE 0.9% 1,000 ML IV ONE (01:34)
[2019-03-20] MEDS ORDERED: CEFEPIME 1 GM in SODIUM CHLORIDE 0.9% MINIBAG 100 ML IV STA (02:29)
[2019-03-20] MEDS ORDERED: VANCOMYCIN INJ 1.25 GM in SODIUM CHLORIDE 0.9% 250 ML IV STA (02:29)
[2019-03-20] MEDS ORDERED: ONDANSETRON 4 MG/2 ML VIAL IVP STA (03:05)
[2019-03-20] MEDS ORDERED: ONDANSETRON 4 MG/2 ML VIAL IVP PRN (03:05)
[2019-03-20] MEDS ORDERED: ONDANSETRON ODT 4 MG TABLET TL PRN (03:05)
[2019-03-20] MEDS ORDERED: hydrALAZINE INJ 20 MG/ML VIAL IVP PRN (03:10)
[2019-03-20] MEDS ORDERED: LORazepam 0.5 MG TABLET SL PRN (03:11)
--- NOTE | 2019-03-20 03:22 | HISTORY & PHYSICAL EXAMINATION ---
Chief Complaint - Chief Complaint Chief Complaint: Fevers with associated chills. 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 with a pathological staging of T3CNX, status post adjuvant chemotherapy with an allergy reaction to Taxol, peripheral neuropathy secondary to chemotherapy, who recently received 2 units of PRBCs on 03/18 in [place], primary oncology seen at [facility], PEG tube self removal on 03/17, history of GERD, small bowel obstruction secondary to adhesions, insulin requiring type 2 diabetes mellitus, chemotherapy-induced anemia with thrombocytopenia, history of multidrug-resistant UTIs in the past, ascites, currently on TPN due to prior small bowel obstruction who presents with fevers to a T-max of 102.5 and associated generalized weakness. Patient in the ER had a heart rate of 111 bpm with blood pressure slightly hypertensive nontachypneic non-tachycardic and non-hypoxemic. Patient's chest x-ray showed a right hilar fullness consistent with an adenopathy however in review of patient's prior CT chest/abdomen pelvis with contrast on 02/24/19 patient showed an oval nodular component in the right middle lobe that appears to be measuring 7 mm however no hilar adenopathy noted. There was no pulmonary lymphadenopathy or abdominal adenopathy noted as well. At the time patient had a gastrostomy tube in the stomach with bile distention measuring up to 3.3 cm. There is was a small collection of fluid at the midline measuring 11 mm in diameter. Lymph nodes in the pelvic region represented external iliac lymph nodes measuring up to 12 mm. No metastatic disease was present. Patient had recently received chemotherapy 3 weeks prior. Patient is able to take down liquids but however has TPN that gets administered every night which is already premixed and she brings from home for which insulin is also added due to her insulin requiring diabetes type 2. Upon further examination patient had lesions to her right foot at the digits that appear to be erythema tous without bullae, streaking or necrosis. Patient denied any diarrhea, abdominal pain, chest pain, palpitations, hematemesis or hematochezia, joint effusion or other maculopapular rashes. Patient inspection of hands did not reveal any splinter hemorrhaging or nodular eruptions or palmar erythema. On inspection of labs patient's WBC was 4.9, hemoglobin 9.3, platelets of 46, AST was elevated at 45 with a T bilirubin of 1.5, sodium 130, creatinine 0.7, glucose of 191, lactic acid 1.4, imaging studies showed a chest x-ray with right hilar adenopathy questionable with right jugular port terminating in the right atrium. Review of CT chest abdomen pelvis with contrast on 02/24/19 showed a fatty liver with decreased incisional fluid collection along with significant decrease in small bowel distention and a decrease ascites and peritoneal implants. There was stable mildly prominent pelvic lymph nodes as well. Patient has multiple allergies to antibiotics however identification of cephalosporins only revealed nausea so initiation of cefepime and vancomycin were performed in the ED while drawing 3 sets of blood cultures prior, 2 from peripheral and 1 more the port. History - Past Medical History Cardiovascular: reports: Hypertension Respiratory: reports: None Neuro: reports: None Endocrine/Autoimmune: reports: Type 2 diabetes GI: reports: GERD [employer]GER: reports: Ovarian cancer : reports: None HEENT: reports: None Psych: reports: None Musculoskeletal: reports: Osteoarthritis Derm: reports: None MRSA Hx?: No - Past Surgical History General: reports: Cholecystectomy /[employer]GER: reports: Hysterectomy, Oophrectomy, Other - POLST Patient has POLST: No Meds/Allgy - Home Medications Home Medications: Ambulatory Orders Medication Instructions Recorded Confirmed Cholecalciferol (Vitamin D3) 5,000 unit PO DAILY 04/27/17 04/28/18 [Vitamin D3] Felodipine [Felodipine ER] 10 mg PO DAILY PM 04/27/17 04/28/18 Lactobacillus Acidophilus 1 each PO DAILY 04/27/17 04/28/18 [Probiotic Acidophilus] Losartan [Cozaar] 100 mg PO DAILY 04/27/17 04/28/18 Metoprolol Succinate [Toprol Xl] 100 mg PO DAILY PM 04/27/17 04/28/18 Pravastatin [Pravachol] 40 mg PO DAILY PM 04/27/17 04/28/18 hydroCHLOROthiazide [Hydrodiuril] 25 mg PO DAILY 04/27/17 04/28/18 Liraglutide [Victoza 2-Santiago] 1.8 mg SQ DAILY 05/07/17 04/28/18 Celecoxib [Celebrex] 200 mg PO DAILY 06/10/17 04/28/18 Omeprazole [PriLOSEC] 1 cap PO DAILY 01/27/18 04/28/18 - Allergies Allergies/Adverse Reactions: Allergies Allergy/AdvReac Type Severity Reaction Status Date / Time paclitaxel [From Taxol] Allergy Severe Anaphylaxis Verified 10/24/18 16:39 cefdinir AdvReac Severe Nausea Verified 10/24/18 16:39 clindamycin AdvReac Severe Nausea Verified 10/24/18 16:39 levofloxacin AdvReac Intermediate Nausea Verified 10/24/18 16:39 sulfamethoxazole AdvReac Intermediate Hallucinati Verified 10/24/18 16:39 [From Bactrim] ons meloxicam AdvReac Mild Nausea Verified 10/24/18 16:39 Penicillins AdvReac Mild Nausea Verified 10/24/18 16:39 metformin AdvReac severe abd Verified 12/09/18 13:36 pain Review of Systems - All Other Systems All Other Systems: reports: Reviewed and negative Prior Level of Functionality: Patient has adequate functional capacity at home with home ADLs Exam - Vital Signs Vital Signs: Vital Signs x48h Temp Pulse Resp BP Pulse Ox 03/20/19 02:54 16 03/20/19 02:44 129 H 17 164/116 H 99 03/20/19 01:42 37.7 C H 16 03/20/19 00:47 17 03/20/19 00:25 36.2 C L 108 H 20 165/91 H 98 03/19/19 21:47 36.4 C L 111 H 17 150/94 H 99 03/19/19 21:43 36.4 C L 111 H 17 150/94 H 99 - Physical Exam General Appearance: positive: No acute distress, Alert, Other (Chronically ill- appearing but nontoxic) Eyes Bilateral: positive: Normal inspection, PERRL, EOMI ENT: positive: ENT inspection nml, Pharynx nml, No signs of dehydration Neck: positive: Nml inspection, Thyroid nml, No JVD, Trachea midline. negative: Thyromegaly Respiratory: positive: Chest non-tender, No respiratory distress, Breath sounds nml Cardiovascular: positive: Regular rate & rhythm, No murmur, No gallop, Tachycardia, Systolic murmur ([place] at the second to third left intercostal sternal border with no radiation to axilla). negative: Gallop/S3, Gallop/S4, Friction rub, Crepitus Peripheral Pulses: positive: 2+ Abdomen: positive: Non-tender, No organomegaly, Nml bowel sounds, No distention. negative: Tenderness Back: positive: Nml inspection Skin: positive: Warm, Diaphoresis, Embolic lesions (Questionable embolic lesions to the fifth digit of foot and 2nd digit) Extremities: positive: Non-tender, Full ROM, Nml appearance, No pedal edema Neurologic/Psychiatric: positive: Oriented x3, CN's nml (2-12) Sepsis Event Note (H) - Evaluation Possible source of Sepsis: positive: Unknown (Patient is tachycardic, febrile, low plts ) - Sepsis Criteria Sepsis Criteria: Hematologic: platelets < 100,000; INR > 1.5, or a PTT>60 seconds Conclusion/Plan - Problem List (1) SIRS (systemic inflammatory response syndrome) Conclusion/Plan: Patient presented with a progressive 24-hour period of fevers with tachycardia and other signs and symptoms of possible underlying bacteremia and line sepsis with questionable embolic lesion seen on exam. Patient does not meet the major or even minor Seth's criteria for endocarditis. However, currently unknown source of sepsis/SIRS. 3 sets of blood cultures were obtained from peripheral sites and one from the right jugular port which on x-ray terminates at the right atrium. Unclear if this is causing tachycardia. In any event we will empirically cover with cefepime and vancomycin. Patient is able to tolerate cephalosporins due to causing only nausea and not anaphylaxis. Patient would otherwise be immunocompromise due to chemotherapy received 3 weeks ago. Patient does not present with neutropenic fever at this time. Patient does have a history of multidrug-resistant UTIs in the past however UA was unremarkable on this admission. We will continue with IV fluids and resume TPN tomorrow, flu swab to follow, blood cultures to follow. (2) Murmur, cardiac Conclusion/Plan: Due to the tachycardia there is a questionable systolic murmur heard on exam with lesions to the right toes of the foot. However, no other signs of Osler's nodes, Janeway lesions or splinter hemorrhages are present. Echocardiogram would need to exclude endocarditis at this point. 3 sets of blood cultures have been drawn. Patient will be on empiric IV coverage with cefepime/vancomycin. 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 Patient's primary oncologist is at [facility]. Obtain old records. CT abdomen pelvis along with CT chest on 02/24/19 shows a fatty liver with decreased incisional fluid collection and significant decrease in small bowel distention along with decreased ascites and peritoneal implants. Patient has a stable mildly prominent pelvic lymph nodes in the pelvis. There is also mention of right middle lobe scarring or active atelectasis. Oval nodular component measuring 7 mm that is also stable. Would continue with medical management at this point. However chemotherapy likely would not be presumed if patient has underlying bacteremia or endocarditis and would need continued short-term versus long-term prolonged IV abx depending on cultures and ECHO. Patient had a self removal of her PEG tube on 03/17. Patient recently had 2 units of PRBCs on 03/18. Patient no longer sees Dr. Hopper which there is last note 04/28/18. Patient in the past has had a history of allergic reaction to Taxol. Would obtain a palliative care consultation. Qualifiers: Laterality: unspecified laterality Qualified Code(s): C56.9 - Malignant neoplasm of unspecified ovary (4) Hyponatremia Conclusion/Plan: Patient appears to be hypertensive and euvolemic at this time with negative ketones on UA which does not indicate dehydration. Likely euvolemic hyponatremia or SIADH as a result of cancerous process. Would continue with LR at the current rate and avoid fluid overload. Would also prevent hyperglycemic excursions as not to cause further pseudohyponatremia. Check other electrolytes and correct as well such as magnesium. (5) Anemia Conclusion/Plan: Likely secondary to chemotherapy as patient denies any blood loss or hemateme sis/hematochezia. Patient had 2 units of PRBCs on 03/18. We will continue to monitor. Qualifiers: Anemia type: unspecified type Qualified Code(s): D64.9 - Anemia, unspecified (6) Thrombocytopenia Conclusion/Plan: Likely chemotherapy-induced. Patient denies bleeding gums, hematemesis or hematochezia. There are no petechiae on initial examination. We will continue to monitor. Will avoid heparin and Lovenox for DVT prophylaxis for now. Patient does have risk for thromboembolic events due to underlying cancerous process. (7) IDDM (insulin dependent diabetes mellitus) Conclusion/Plan: Placed on insulin sliding scale correctional dose, carb controlled diet however patient had previous PEG and would only placed on clears for now. Patient will be on TPN and would have insulin mix into the bag. Hemoglobin A1c to follow. - Lab Results Lab results reviewed: Yes Ye Bones: 03/20/19 00:06 03/20/19 00:30 - Diagnostic Imaging Results Diagnostic Imaging Results: positive: Final report reviewed - EKG Results EKG Interpreted Independently: No Core Measures - Anticipated LOS I expect patient to be DC'd or transferred within 96 hours.: Yes - DVT/VTE - Prophylaxis VTE/DVT Device ordered at admit?: Yes VTE/DVT Prophylaxis med ordered at admit?: No Not Ordered - Medical Reason: Contraindicated (Platelets are at 46K)
[2019-03-20] MEDS ORDERED: VANCOMYCIN PER PHARMACY 100 GM in SODIUM CHLORIDE 0.9% 250 ML IV SCH (04:00)
[2019-03-20] MEDS: LACTATED RINGERS 1,000 ML IV SCH ×2 (04:51→15:41)
[2019-03-20 05:45] LABS: BASOPHILS % (AUTO) 0.6 %; HGB - HEMOGLOBIN 8.8 g/dL (12.0-16.0); LYMPHOCYTES # (AUTO) 0.3 10^3/uL (1.5-3.5); LYMPHOCYTES % (AUTO) 7.4 %; MEAN CORPUSCULAR HEMOGLOBIN 31.6 pg (27.0-31.0); MEAN CORPUSCULAR HGB CONC 34.5 g/dL (32.0-36.0); MEAN CORPUSCULAR VOLUME 91.5 fL (81.0-99.0); MEAN PLATELET VOLUME 8.2 fL (7.9-10.8); MONOCYTES # (AUTO) 0.5 10^3/uL (0.0-1.0); MONOCYTES % (AUTO) 10.4 %; NEUTROPHILS # (AUTO) 3.8 10^3/uL (1.5-6.6); NEUTROPHILS % (AUTO) 81.6 %; PLT - PLATELET COUNT 47 10^3/uL (130-450); RED BLOOD COUNT 2.79 10^6/uL (4.20-5.40); RED CELL DISTRIBUTION WIDTH 17.9 % (12.0-15.0); WHITE BLOOD COUNT 4.6 x10^3/uL (4.8-10.8)
[2019-03-20 05:48] LABS: INR 1.4 (0.8-1.2)
[2019-03-20 05:54] LABS: ALBUMIN 2.8 g/dL (3.2-5.5); ALBUMIN/GLOBULIN RATIO 0.7 (1.0-2.2); BILIRUBIN,TOTAL 1.8 mg/dL (0.2-1.0); CALCIUM 8.6 mg/dL (8.5-10.3); CREATININE 0.6 mg/dL (0.4-1.0); TOTAL PROTEIN 6.6 g/dL (6.7-8.2)
[2019-03-20 05:58] LABS: HB2 TOTAL 9.1 g/dL; HEMOGLOBIN A1C 0.39 g/dL; HEMOGLOBIN A1C % 6.1 % (4.6-6.2)
[2019-03-20] MEDS: CEFEPIME 2 GM in SODIUM CHLORIDE 0.9% MINIBAG 100 ML IV SCH ×2 (06:23→15:40)
[2019-03-20] MEDS: INSULIN ASPART 300 UNIT/3 ML PEN SUBQ SCH ×4 (08:24→20:46)
[2019-03-20] MEDS: FAMOTIDINE 20 MG/2 ML VIAL IVP SCH ×2 (09:41→20:55)
[2019-03-20] MEDS: SODIUM CHLORIDE FLUSH 0.9% 10 ML SYRINGE IVP SCH ×2 (09:42→17:30)
[2019-03-20] MEDS: POLYETHYLENE GLYCOL 3350 17 GM PACKET PO SCH (09:48)
[2019-03-20] MEDS ORDERED: ACETAMINOPHEN 325 MG TABLET PO PRN (10:13)
--- NOTE | 2019-03-20 12:42 | PROVIDER PROGRESS NOTE ---
Subjective - Prog Note Date Prog Note Date: 03/20/19 Prog Note Time: 12:40 - Subjective Pt reports feeling: Improved (Still tired but overall feels better than yesterday) Objective - Vital Signs/Intake & Output Vital Signs: Vital Signs x48h Temp Pulse Resp BP Pulse Ox 03/20/19 09:53 37.7 C H 92 03/20/19 08:59 38.2 C H 120 H 03/20/19 07:21 38.1 C H 121 H 17 146/83 H 95 03/20/19 06:25 37.7 C H 03/20/19 06:11 37.9 C H 121 H 16 147/73 H 94 Intake & Output: Intake & Output 03/17/19 03/18/19 03/19/19 03/20/19 23:59 23:59 23:59 23:59 Intake Total 1450 Output Total 1100 Balance 350 - Objective General Appearance: positive: No acute distress, Alert Eyes Bilateral: positive: Normal inspection ENT: positive: ENT inspection nml Neck: positive: Nml inspection, No JVD Respiratory: positive: Chest non-tender, No respiratory distress, Breath sounds nml Cardiovascular: positive: Regular rate & rhythm, No murmur, No gallop Peripheral Pulses: 1+ Radial (R), 1+ Radial (L), 1+ Dorsalis pedis (R), 1+ Dorsalis pedis (L), 1+ Posterior tibialis (R), 1+ Posterior tibialis (L) Abdomen: positive: Non-tender, No organomegaly, Nml bowel sounds, No distention Skin: positive: Color nml, Other (Small reddened area on medial right 1st toe. 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) - Lab Results Fish Bones: 03/20/19 05:20 03/20/19 05:20 Other Labs: Lab Results x24hrs 03/20/19 03/20/19 03/20/19 Range/Units 12:02 08:02 06:30 WBC (4.8-10.8) x10^3/uL RBC (4.20-5.40) 10^6/uL Hgb (12.0-16.0) g/dL Hct (37.0-47.0) % MCV (81.0-99.0) fL MCH (27.0-31.0) pg MCHC (32.0-36.0) g/dL RDW (12.0-15.0) % Plt Count (130-450) 10^3/uL MPV (7.9-10.8) fL Neut # (Auto) (1.5-6.6) 10^3/uL Lymph # (Auto) (1.5-3.5) 10^3/uL [place] # (Auto) (0.0-1.0) 10^3/uL Eos # (Auto) (0.0-0.7) 10^3/uL Baso # (Auto) (0.0-0.1) 10^3/uL Absolute Nucleated RBC x10^3/uL Nucleated RBC % /100WBC PT (9.9-12.6) secs INR (0.8-1.2) Sodium (135-145) mmol/L Potassium (3.5-5.0) mmol/L Chloride (101-111) mmol/L Carbon Dioxide (21-32) mmol/L Anion Gap (6-13) BUN (6-20) mg/dL Creatinine (0.4-1.0) mg/dL Estimated GFR (MDRD) (>89) Glucose (70-100) mg/dL POC Whole Bld Glucose 146 H 176 H (70 - 100) mg/dL Glycated Hemoglobin (4.6-6.2) % Estim Average Glucose (70-100) Lactic Acid (0.5-2.2) mmol/L Calcium (8.5-10.3) mg/dL Magnesium (1.7-2.8) mg/dL Total Bilirubin (0.2-1.0) mg/dL AST (10-42) IU/L ALT (10-60) IU/L Alkaline Phosphatase (42-121) IU/L Troponin I (<0.49) ng/mL Total Protein (6.7-8.2) g/dL Albumin (3.2-5.5) g/dL Globulin (2.1-4.2) g/dL Albumin/Globulin Ratio (1.0-2.2) Lipase (22-51) U/L TSH (0.34-5.60) uIU/mL Urine Color Urine Clarity (CLEAR) Urine pH (5.0-7.5) PH Ur Specific [place] (1.002-1.030) Urine Protein (NEGATIVE) mg/dL Urine Glucose (UA) (NEGATIVE) mg/dL Urine Ketones (NEGATIVE) mg/dL Urine Occult Blood (NEGATIVE) Urine Nitrite (NEGATIVE) Urine Bilirubin (NEGATIVE) Urine Urobilinogen (NORMAL) E.U./dL Ur Leukocyte Esterase (NEGATIVE) Ur Microscopic Review Urine Culture Comments Influenza A (Rapid) Negative (Negative) Influenza B (Rapid) Negative (Negative) 03/20/19 03/20/19 03/20/19 Range/Units 05:20 05:20 05:20 WBC 4.6 L (4.8-10.8) x10^3/uL RBC 2.79 L (4.20-5.40) 10^6/uL Hgb 8.8 L (12.0-16.0) g/dL Hct 25.5 L (37.0-47.0) % MCV 91.5 (81.0-99.0) fL MCH 31.6 H (27.0-31.0) pg MCHC 34.5 (32.0-36.0) g/dL RDW 17.9 H (12.0-15.0) % Plt Count 47 L (130-450) 10^3/uL MPV 8.2 (7.9-10.8) fL Neut # (Auto) 3.8 (1.5-6.6) 10^3/uL Lymph # (Auto) 0.3 L (1.5-3.5) 10^3/uL [place] # (Auto) 0.5 (0.0-1.0) 10^3/uL Eos # (Auto) 0.0 (0.0-0.7) 10^3/uL Baso # (Auto) 0.0 (0.0-0.1) 10^3/uL Absolute Nucleated RBC 0.01 x10^3/uL Nucleated RBC % 0.2 /100WBC PT 16.0 H (9.9-12.6) secs INR 1.4 H (0.8-1.2) Sodium 131 L (135-145) mmol/L Potassium 4.1 (3.5-5.0) mmol/L Chloride 98 L (101-111) mmol/L Carbon Dioxide 20 L (21-32) mmol/L Anion Gap 13.0 (6-13) BUN 21 H (6-20) mg/dL Creatinine 0.6 (0.4-1.0) mg/dL Estimated GFR (MDRD) 103 (>89) Glucose 175 H (70-100) mg/dL POC Whole Bld Glucose (70 - 100) mg/dL Glycated Hemoglobin (4.6-6.2) % Estim Average Glucose (70-100) Lactic Acid (0.5-2.2) mmol/L Calcium 8.6 (8.5-10.3) mg/dL Magnesium (1.7-2.8) mg/dL Total Bilirubin 1.8 H (0.2-1.0) mg/dL AST 49 H (10-42) IU/L ALT 60 (10-60) IU/L Alkaline Phosphatase 127 H (42-121) IU/L Troponin I (<0.49) ng/mL Total Protein 6.6 L (6.7-8.2) g/dL Albumin 2.8 L (3.2-5.5) g/dL Globulin 3.8 (2.1-4.2) g/dL Albumin/Globulin Ratio 0.7 L (1.0-2.2) Lipase (22-51) U/L TSH (0.34-5.60) uIU/mL Urine Color Urine Clarity (CLEAR) Urine pH (5.0-7.5) PH Ur Specific [place] (1.002-1.030) Urine Protein (NEGATIVE) mg/dL Urine Glucose (UA) (NEGATIVE) mg/dL Urine Ketones (NEGATIVE) mg/dL Urine Occult Blood (NEGATIVE) Urine Nitrite (NEGATIVE) Urine Bilirubin (NEGATIVE) Urine Urobilinogen (NORMAL) E.U./dL Ur Leukocyte Esterase (NEGATIVE) Ur Microscopic Review Urine Culture Comments Influenza A (Rapid) (Negative) Influenza B (Rapid) (Negative) 04/20/19 04/20/19 04/20/19 Range/Units 05:20 05:20 00:30 WBC (4.8-10.8) x10^3/uL RBC (4.20-5.40) 10^6/uL Hgb (12.0-16.0) g/dL Hct (37.0-47.0) % MCV (81.0-99.0) fL MCH (27.0-31.0) pg MCHC (32.0-36.0) g/dL RDW (12.0-15.0) % Plt Count (130-450) 10^3/uL MPV (7.9-10.8) fL Neut # (Auto) (1.5-6.6) 10^3/uL Lymph # (Auto) (1.5-3.5) 10^3/uL [place] # (Auto) (0.0-1.0) 10^3/uL Eos # (Auto) (0.0-0.7) 10^3/uL Baso # (Auto) (0.0-0.1) 10^3/uL Absolute Nucleated RBC x10^3/uL Nucleated RBC % /100WBC PT (9.9-12.6) secs INR (0.8-1.2) Sodium (135-145) mmol/L Potassium (3.5-5.0) mmol/L Chloride (101-111) mmol/L Carbon Dioxide (21-32) mmol/L Anion Gap (6-13) BUN (6-20) mg/dL Creatinine (0.4-1.0) mg/dL Estimated GFR (MDRD) (>89) Glucose (70-100) mg/dL POC Whole Bld Glucose (70 - 100) mg/dL Glycated Hemoglobin 6.1 (4.6-6.2) % Estim Average Glucose 128 H (70-100) Lactic Acid (0.5-2.2) mmol/L Calcium (8.5-10.3) mg/dL Magnesium 1.5 L (1.7-2.8) mg/dL Total Bilirubin (0.2-1.0) mg/dL AST (10-42) IU/L ALT (10-60) IU/L Alkaline Phosphatase (42-121) IU/L Troponin I (<0.49) ng/mL Total Protein (6.7-8.2) g/dL Albumin (3.2-5.5) g/dL Globulin (2.1-4.2) g/dL Albumin/Globulin Ratio (1.0-2.2) Lipase (22-51) U/L TSH 0.85 (0.34-5.60) uIU/mL Urine Color Urine Clarity (CLEAR) Urine pH (5.0-7.5) PH Ur Specific [place] (1.002-1.030) Urine Protein (NEGATIVE) mg/dL Urine Glucose (UA) (NEGATIVE) mg/dL Urine Ketones (NEGATIVE) mg/dL Urine Occult Blood (NEGATIVE) Urine Nitrite (NEGATIVE) Urine Bilirubin (NEGATIVE) Urine Urobilinogen (NORMAL) E.U./dL Ur Leukocyte Esterase (NEGATIVE) Ur Microscopic Review Urine Culture Comments Influenza A (Rapid) (Negative) Influenza B (Rapid) (Negative) 03/20/19 03/20/19 03/20/19 Range/Units 00:30 00:30 00:30 WBC (4.8-10.8) x10^3/uL RBC (4.20-5.40) 10^6/uL Hgb (12.0-16.0) g/dL Hct (37.0-47.0) % MCV (81.0-99.0) fL MCH (27.0-31.0) pg MCHC (32.0-36.0) g/dL RDW (12.0-15.0) % Plt Count (130-450) 10^3/uL MPV (7.9-10.8) fL Neut # (Auto) (1.5-6.6) 10^3/uL Lymph # (Auto) (1.5-3.5) 10^3/uL [place] # (Auto) (0.0-1.0) 10^3/uL Eos # (Auto) (0.0-0.7) 10^3/uL Baso # (Auto) (0.0-0.1) 10^3/uL Absolute Nucleated RBC x10^3/uL Nucleated RBC % /100WBC PT (9.9-12.6) secs INR (0.8-1.2) Sodium 130 L (135-145) mmol/L Potassium 3.8 (3.5-5.0) mmol/L Chloride 98 L (101-111) mmol/L Carbon Dioxide 21 (21-32) mmol/L Anion Gap 11.0 (6-13) BUN 25 H (6-20) mg/dL Creatinine 0.7 (0.4-1.0) mg/dL Estimated GFR (MDRD) 86 L (>89) Glucose 191 H (70-100) mg/dL POC Whole Bld Glucose (70 - 100) mg/dL Glycated Hemoglobin (4.6-6.2) % Estim Average Glucose (70-100) Lactic Acid 1.4 (0.5-2.2) mmol/L Calcium 9.0 (8.5-10.3) mg/dL Magnesium (1.7-2.8) mg/dL Total Bilirubin 1.5 H (0.2-1.0) mg/dL AST 45 H (10-42) IU/L ALT 60 (10-60) IU/L Alkaline Phosphatase 116 (42-121) IU/L Troponin I < 0.04 (<0.49) ng/mL Total Protein 7.1 (6.7-8.2) g/dL Albumin 2.9 L (3.2-5.5) g/dL Globulin 4.2 (2.1-4.2) g/dL Albumin/Globulin Ratio 0.7 L (1.0-2.2) Lipase 32 (22-51) U/L TSH (0.34-5.60) uIU/mL Urine Color Urine Clarity (CLEAR) Urine pH (5.0-7.5) PH Ur Specific [place] (1.002-1.030) Urine Protein (NEGATIVE) mg/dL Urine Glucose (UA) (NEGATIVE) mg/dL Urine Ketones (NEGATIVE) mg/dL Urine Occult Blood (NEGATIVE) Urine Nitrite (NEGATIVE) Urine Bilirubin (NEGATIVE) Urine Urobilinogen (NORMAL) E.U./dL Ur Leukocyte Esterase (NEGATIVE) Ur Microscopic Review Urine Culture Comments Influenza A (Rapid) (Negative) Influenza B (Rapid) (Negative) 03/20/19 03/20/19 Range/Units 00:06 00:00 WBC 4.9 (4.8-10.8) x10^3/uL RBC 2.99 L (4.20-5.40) 10^6/uL Hgb 9.3 L (12.0-16.0) g/dL Hct 27.5 L (37.0-47.0) % MCV 91.9 (81.0-99.0) fL MCH 31.3 H (27.0-31.0) pg MCHC 34.0 (32.0-36.0) g/dL RDW 18.2 H (12.0-15.0) % Plt Count 46 L (130-450) 10^3/uL MPV 8.7 (7.9-10.8) fL Neut # (Auto) 3.9 (1.5-6.6) 10^3/uL Lymph # (Auto) 0.5 L (1.5-3.5) 10^3/uL [place] # (Auto) 0.5 (0.0-1.0) 10^3/uL Eos # (Auto) 0.0 (0.0-0.7) 10^3/uL Baso # (Auto) 0.0 (0.0-0.1) 10^3/uL Absolute Nucleated RBC 0.01 x10^3/uL Nucleated RBC % 0.1 /100WBC PT (9.9-12.6) secs INR (0.8-1.2) Sodium (135-145) mmol/L Potassium (3.5-5.0) mmol/L Chloride (101-111) mmol/L Carbon Dioxide (21-32) mmol/L Anion Gap (6-13) BUN (6-20) mg/dL Creatinine (0.4-1.0) mg/dL Estimated GFR (MDRD) (>89) Glucose (70-100) mg/dL POC Whole Bld Glucose (70 - 100) mg/dL Glycated Hemoglobin (4.6-6.2) % Estim Average Glucose (70-100) Lactic Acid (0.5-2.2) mmol/L Calcium (8.5-10.3) mg/dL Magnesium (1.7-2.8) mg/dL Total Bilirubin (0.2-1.0) mg/dL AST (10-42) IU/L ALT (10-60) IU/L Alkaline Phosphatase (42-121) IU/L Troponin I (<0.49) ng/mL Total Protein (6.7-8.2) g/dL Albumin (3.2-5.5) g/dL Globulin (2.1-4.2) g/dL Albumin/Globulin Ratio (1.0-2.2) Lipase (22-51) U/L TSH (0.34-5.60) uIU/mL Urine Color YELLOW Urine Clarity CLEAR (CLEAR) Urine pH 6.0 (5.0-7.5) PH Ur Specific [place] <=1.005 (1.002-1.030) Urine Protein NEGATIVE (NEGATIVE) mg/dL Urine Glucose (UA) 250 H (NEGATIVE) mg/dL Urine Ketones NEGATIVE (NEGATIVE) mg/dL Urine Occult Blood NEGATIVE (NEGATIVE) Urine Nitrite NEGATIVE (NEGATIVE) Urine Bilirubin NEGATIVE (NEGATIVE) Urine Urobilinogen 1 (NORMAL) (NORMAL) E.U./dL Ur Leukocyte Esterase NEGATIVE (NEGATIVE) Ur Microscopic Review NOT INDICATED Urine Culture Comments NOT INDICATED Influenza A (Rapid) (Negative) Influenza B (Rapid) (Negative) Sepsis Event Note (H) - Evaluation Possible source of Sepsis: positive: Unknown (Patient is tachycardic, febrile, low plts ) - Sepsis Criteria Sepsis Criteria: Hematologic: platelets < 100,000; INR > 1.5, or a PTT>60 seconds Assessment/Plan - Problem List (1) SIRS (systemic inflammatory response syndrome) Impression: Patient presented with a progressive 24-hour period of fevers with tachycardia and other signs and symptoms of possible underlying bacteremia and possible line sepsis with questionable embolic lesion seen on exam. Patient does not meet the major or even minor Seth's criteria for endocarditis. However, currently unknown source of sepsis/SIRS. 3 sets of blood cultures were obtained from p eripheral sites and one from the right jugular port which on x-ray terminates at the right atrium. Unclear if this is causing tachycardia. In any event we will empirically cover with cefepime and vancomycin. Patient is able to tolerate cephalosporins due to causing only nausea and not anaphylaxis. Patient would otherwise be immunocompromise due to chemotherapy received 3 weeks ago. Patient does have a history of multidrug-resistant UTIs in the past however UA was unremarkable on this admission. -Remains febrile 37.7-38.2c PLAN -Stared on Cefepime and Vanco -Blood cultures pending -Continue to monitor temp (2) Murmur, cardiac Impression: Unable to ascultate murmur today Echo 03/20 showing E65-70%, mild nd trace-mild MR. No vegetations. 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 Patient's primary oncologist is at [facility]. Obtain old records. CT abdomen pelvis along with CT chest on 02/24/19 shows a fatty liver with decreased incisional fluid collection and significant decrease in small bowel distention along with decreased ascites and peritoneal implants. Patient has a stable mildly prominent pelvic lymph nodes in the pelvis. There is also mention of right middle lobe scarring or active atelectasis. Oval nodular component measuring 7 mm that is also stable. Would continue with medical management at this point. However chemotherapy likely would not be presumed if patient has underlying bacteremia or endocarditis and would need continued short-term versus long-term prolonged IV abx depending on cultures and ECHO. Patient had a self removal of her PEG tube on 03/17. Patient recently had 2 units of PRBCs on 03/18. Patient no longer sees Dr. Hopper which there is last note 04/28/18. Patient in the past has had a history of allergic reaction to Taxol. Would obtain a palliative care consultation. PLAN Next chemo scheduled for 03/24 Qualifiers: Laterality: unspecified laterality Qualified Code(s): C56.9 - Malignant n eoplasm of unspecified ovary (4) Hyponatremia Impression: Likely euvolemic hyponatremia or SIADH as a result of cancerous process. Would also prevent hyperglycemic excursions as not to cause further pseudohyponatremia. Na 131 today Recieving LR IV at 75ml/hr PLAN Continue with LR Monitor electrolytes (5) Anemia Impression: Likely secondary to chemotherapy as patient denies any blood loss or hematemesis/hematochezia. S/p 2 units PRBCs on 03/18 H/H trending down: Hbg 9.3-8.8/Hct 27.5-25.5 PLAN Continue to monitor Qualifiers: Anemia type: unspecified type Qualified Code(s): D64.9 - Anemia, unspecified (6) Thrombocytopenia Impression: Likely chemotherapy-induced. Patient denies bleeding gums, hematemesis or he matochezia. There are no petichiae on exam. Avoiding heparin and Lovenox for DVT prophylaxis for now. Pt does have risk for thromboembolic events d/t underlying cancerous process. WBC 4.6 RBC 2.7 Hgb 8.8 Hct 25.5 Plt 47 Continue to monitor (7) IDDM (insulin dependent diabetes mellitus) Impression: Hbg A1C 6.1 Small bowel obstruction with recent PEG tube removal. tolerating clear liquids, TPN at HS. SSI ordered Continue to monitor BG
--- NOTE | 2019-03-20 13:01 | Ultrasound Report ---
Reason: left leg edema in pt w ca Procedure Date: 03/20/2019 Accession Number: [id number] / [id number] Procedure: US - Duplex Ext Veins Left CPT Code: FULL RESULT: EXAM: LEFT LOWER EXTREMITY VENOUS ULTRASOUND EXAM DATE: 03/20/2019 11:56 AM. CLINICAL HISTORY: Left leg edema. History of ovarian cancer. Rule out DVT. COMPARISON: None. TECHNIQUE: Real-time sonographic vascular imaging was performed by the environmental services assistant through the lower extremity utilizing both color-flow and Doppler spectral analysis. Multiple security representative static images were saved for review. FINDINGS: Common Femoral Vein (CFV): Normal. CFV-GSV Junction: Normal. Profunda Femoral Vein (PFV): Normal. Femoral Vein (FV) Prox: Normal. Femoral Vein (FV) Mid: Normal. Femoral Vein (FV) Dist: Normal. Popliteal Vein: Normal. Posterior Tibial Veins: Normal. Peroneal Veins: Not visible due to technical factors. Other: No Mancera's cyst. IMPRESSION: 1. No DVT demonstrated in the left lower extremity. RADIA
[2019-03-20] MEDS ORDERED: VANCOMYCIN INJ 1 GM, VANCOMYCIN INJ 500 MG in SODIUM CHLORIDE 0.9% 500 ML IV SCH (14:00)
[2019-03-20] MEDS ORDERED: VANCOMYCIN INJ 1.25 GM in SODIUM CHLORIDE 0.9% 250 ML IV SCH (15:00)
[2019-03-20] MEDS ORDERED: VANCOMYCIN INJ 1 GM in SODIUM CHLORIDE 0.9% 500 ML IV SCH (15:00)
[2019-03-20] MEDS: SCOPOLAMINE PATCH TOP SCH (15:40)
[2019-03-20] MEDS: fentaNYL 50 MCG PATCH TOP SCH (15:41)
[2019-03-20] MEDS ORDERED: ACETAMINOPHEN 500 MG TABLET PO PRN (16:56)
[2019-03-20] MEDS ORDERED: GABAPENTIN 300 MG CAPSULE PO PRN (16:56)
[2019-03-20] MEDS ORDERED: LORazepam 0.5 MG TABLET PO PRN (16:56)
[2019-03-20] MEDS ORDERED: MORPHINE IR 15 MG TABLET PO PRN (16:56)
[2019-03-20] MEDS ORDERED: CYCLOBENZAPRINE 10 MG TABLET PO PRN (16:56)
[2019-03-20] MEDS: PROCHLORPERAZINE 25 MG SUPP PR SCH (18:02)
[2019-03-20] MEDS: METOPROLOL SUCCINATE 50 MG TABLET PO SCH (18:02)
[2019-03-20] MEDS: AMPICILLIN/SULBACTAM 3 GM in SODIUM CHLORIDE 0.9% MINIBAG 100 ML IV SCH (19:50)
[2019-03-20] MEDS: TPN (CLINIMIX E 5/15) 2,000 ML with MULTIVITAMIN 10 ML, TRACE ELEMENTS V CONC 1 ML, POT... IV SCH ×7 (20:40)
[2019-03-20] MEDS: FAT EMULSION 20% 250 ML IV SCH (20:41)
[2019-03-21] MEDS: SODIUM CHLORIDE FLUSH 0.9% 10 ML SYRINGE IVP SCH ×4 (00:01→23:52)
[2019-03-21] MEDS: AMPICILLIN/SULBACTAM 3 GM in SODIUM CHLORIDE 0.9% MINIBAG 100 ML IV SCH ×5 (00:47→23:53)
[2019-03-21] MEDS: PROCHLORPERAZINE 25 MG SUPP PR SCH ×2 (05:00→16:33)
[2019-03-21 05:21] LABS: BASOPHILS % (AUTO) 0.3 %; EOSINOPHILS % (AUTO) 0.1 %; HGB - HEMOGLOBIN 8.2 g/dL (12.0-16.0); LYMPHOCYTES # (AUTO) 0.5 10^3/uL (1.5-3.5); LYMPHOCYTES % (AUTO) 10.6 %; MEAN CORPUSCULAR HEMOGLOBIN 31.8 pg (27.0-31.0); MEAN CORPUSCULAR VOLUME 90.9 fL (81.0-99.0); MEAN PLATELET VOLUME 9.2 fL (7.9-10.8); MONOCYTES # (AUTO) 0.7 10^3/uL (0.0-1.0); MONOCYTES % (AUTO) 14.1 %; NEUTROPHILS # (AUTO) 3.6 10^3/uL (1.5-6.6); NEUTROPHILS % (AUTO) 74.9 %; PLT - PLATELET COUNT 53 10^3/uL (130-450); RED BLOOD COUNT 2.59 10^6/uL (4.20-5.40); RED CELL DISTRIBUTION WIDTH 17.5 % (12.0-15.0); WHITE BLOOD COUNT 4.9 x10^3/uL (4.8-10.8)
[2019-03-21] MEDS: SODIUM CHLORIDE FLUSH 0.9% 10 ML SYRINGE IVP PRN ×2 (05:23→12:13)
[2019-03-21 05:28] LABS: INR 1.4 (0.8-1.2); PT - PROTHROMBIN TIME 15.4 secs (9.9-12.6)
[2019-03-21] MEDS ORDERED: VANCOMYCIN INJ 1 GM, VANCOMYCIN INJ 500 MG in SODIUM CHLORIDE 0.9% 500 ML IV SCH (05:30)
[2019-03-21 05:37] LABS: ALBUMIN 2.6 g/dL (3.2-5.5); ALBUMIN/GLOBULIN RATIO 0.7 (1.0-2.2); CREATININE 0.8 mg/dL (0.4-1.0); MAGNESIUM 2.1 mg/dL (1.7-2.8); PHOSPHORUS 3.8 mg/dL (2.5-4.6); TOTAL PROTEIN 6.3 g/dL (6.7-8.2)
[2019-03-21] MEDS: CALCIUM GLUCONATE 1,000 MG in SODIUM CHLORIDE 0.9% 50 ML IV SCH (08:33)
[2019-03-21] MEDS: FAMOTIDINE 20 MG/2 ML VIAL IVP SCH ×2 (08:33→21:58)
[2019-03-21] MEDS: POLYETHYLENE GLYCOL 3350 17 GM PACKET PO SCH (08:34)
[2019-03-21] MEDS: INSULIN ASPART 300 UNIT/3 ML PEN SUBQ SCH ×4 (08:46→21:58)
[2019-03-21] MEDS ORDERED: CALCIUM GLUCONATE 1000 MG/10 ML VIAL IVP SCH (09:00)
--- NOTE | 2019-03-21 11:12 | PROVIDER PROGRESS NOTE ---
Subjective - Prog Note Date Prog Note Date: 03/21/19 Prog Note Time: 11:09 - Subjective Pt reports feeling: Improved (Feeling less fatigued, no chills.) Objective - Vital Signs/Intake & Output Reviewed Vital Signs: Yes Vital Signs: Vital Signs x48h Temp Pulse Resp BP Pulse Ox 03/21/19 08:00 36.4 C L 96 18 193/107 H 96 Intake & Output: Intake & Output 03/18/19 03/19/19 03/20/19 03/21/19 23:59 23:59 23:59 23:59 Intake Total 3344.167 3690 Output Total 1975 2350 Balance 4778.363 1515 - Objective General Appearance: positive: No acute distress, Alert Eyes Bilateral: positive: Normal inspection, PERRL, No lid inflammation ENT: positive: ENT inspection nml Neck: positive: Nml inspection, Thyroid nml, No JVD, Trachea midline Respiratory: positive: Chest non-tender, No respiratory distress, Breath sounds nml Cardiovascular: positive: Regular rate & rhythm, No murmur Abdomen: positive: Non-tender, No organomegaly, No distention, Other (Some leakage from PEG site overnight. 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 Lesions on 1st and 5th Right toe unchanged.) Neurologic/Psychiatric: positive: Oriented x3, Motor nml, Other (Reports less weakness with activity (to and from commode)) - Lab Results Fish Bones: 03/21/19 04:50 03/21/19 04:50 Other Labs: Lab Results x24hrs 03/21/19 03/21/19 03/21/19 Range/Units 08:21 04:50 04:50 WBC (4.8-10.8) x10^3/uL RBC (4.20-5.40) 10^6/uL Hgb (12.0-16.0) g/dL Hct (37.0-47.0) % MCV (81.0-99.0) fL MCH (27.0-31.0) pg MCHC (32.0-36.0) g/dL RDW (12.0-15.0) % Plt Count (130-450) 10^3/uL MPV (7.9-10.8) fL Neut # (Auto) (1.5-6.6) 10^3/uL Lymph # (Auto) (1.5-3.5) 10^3/uL [place] # (Auto) (0.0-1.0) 10^3/uL Eos # (Auto) (0.0-0.7) 10^3/uL Baso # (Auto) (0.0-0.1) 10^3/uL Absolute Nucleated RBC x10^3/uL Nucleated RBC % /100WBC PT 15.4 H (9.9-12.6) secs INR 1.4 H (0.8-1.2) Sodium 134 L (135-145) mmol/L Potassium 3.8 (3.5-5.0) mmol/L Chloride 103 (101-111) mmol/L Carbon Dioxide 22 (21-32) mmol/L Anion Gap 9.0 (6-13) BUN 20 (6-20) mg/dL Creatinine 0.8 (0.4-1.0) mg/dL Estimated GFR (MDRD) 74 L (>89) Glucose 152 H (70-100) mg/dL POC Whole Bld Glucose 157 H (70 - 100) mg/dL Calcium 9.0 (8.5-10.3) mg/dL Phosphorus 3.8 (2.5-4.6) mg/dL Magnesium 2.1 (1.7-2.8) mg/dL Total Bilirubin 1.0 (0.2-1.0) mg/dL AST 50 H (10-42) IU/L ALT 64 H (10-60) IU/L Alkaline Phosphatase 112 (42-121) IU/L Total Protein 6.3 L (6.7-8.2) g/dL Albumin 2.6 L (3.2-5.5) g/dL Globulin 3.7 (2.1-4.2) g/dL Albumin/Globulin Ratio 0.7 L (1.0-2.2) Prealbumin 7 L (18-45) mg/dL Triglycerides 211 H ( - 149) mg/dL 03/21/19 03/20/19 03/20/19 Range/Units 04:50 20:39 17:08 WBC 4.9 (4.8-10.8) x10^3/uL RBC 2.59 L (4.20-5.40) 10^6/uL Hgb 8.2 L (12.0-16.0) g/dL Hct 23.6 L (37.0-47.0) % MCV 90.9 (81.0-99.0) fL MCH 31.8 H (27.0-31.0) pg MCHC 35.0 (32.0-36.0) g/dL RDW 17.5 H (12.0-15.0) % Plt Count 53 L (130-450) 10^3/uL MPV 9.2 (7.9-10.8) fL Neut # (Auto) 3.6 (1.5-6.6) 10^3/uL Lymph # (Auto) 0.5 L (1.5-3.5) 10^3/uL [place] # (Auto) 0.7 (0.0-1.0) 10^3/uL Eos # (Auto) 0.0 (0.0-0.7) 10^3/uL Baso # (Auto) 0.0 (0.0-0.1) 10^3/uL Absolute Nucleated RBC 0.00 x10^3/uL Nucleated RBC % 0.1 /100WBC PT (9.9-12.6) secs INR (0.8-1.2) Sodium (135-145) mmol/L Potassium (3.5-5.0) mmol/L Chloride (101-111) mmol/L Carbon Dioxide (21-32) mmol/L Anion Gap (6-13) BUN (6-20) mg/dL Creatinine (0.4-1.0) mg/dL Estimated GFR (MDRD) (>89) Glucose (70-100) mg/dL POC Whole Bld Glucose 109 H 127 H (70 - 100) mg/dL Calcium (8.5-10.3) mg/dL Phosphorus (2.5-4.6) mg/dL Magnesium (1.7-2.8) mg/dL Total Bilirubin (0.2-1.0) mg/dL AST (10-42) IU/L ALT (10-60) IU/L Alkaline Phosphatase (42-121) IU/L Total Protein (6.7-8.2) g/dL Albumin (3.2-5.5) g/dL Globulin (2.1-4.2) g/dL Albumin/Globulin Ratio (1.0-2.2) Prealbumin (18-45) mg/dL Triglycerides ( - 149) mg/dL 03/20/19 Range/Units 12:02 WBC (4.8-10.8) x10^3/uL RBC (4.20-5.40) 10^6/uL Hgb (12.0-16.0) g/dL Hct (37.0-47.0) % MCV (81.0-99.0) fL MCH (27.0-31.0) pg MCHC (32.0-36.0) g/dL RDW (12.0-15.0) % Plt Count (130-450) 10^3/uL MPV (7.9-10.8) fL Neut # (Auto) (1.5-6.6) 10^3/uL Lymph # (Auto) (1.5-3.5) 10^3/uL [place] # (Auto) (0.0-1.0) 10^3/uL Eos # (Auto) (0.0-0.7) 10^3/uL Baso # (Auto) (0.0-0.1) 10^3/uL Absolute Nucleated RBC x10^3/uL Nucleated RBC % /100WBC PT (9.9-12.6) secs INR (0.8-1.2) Sodium (135-145) mmol/L Potassium (3.5-5.0) mmol/L Chloride (101-111) mmol/L Carbon Dioxide (21-32) mmol/L Anion Gap (6-13) BUN (6-20) mg/dL Creatinine (0.4-1.0) mg/dL Estimated GFR (MDRD) (>89) Glucose (70-100) mg/dL POC Whole Bld Glucose 146 H (70 - 100) mg/dL Calcium (8.5-10.3) mg/dL Phosphorus (2.5-4.6) mg/dL Magnesium (1.7-2.8) mg/dL Total Bilirubin (0.2-1.0) mg/dL AST (10-42) IU/L ALT (10-60) IU/L Alkaline Phosphatase (42-121) IU/L Total Protein (6.7-8.2) g/dL Albumin (3.2-5.5) g/dL Globulin (2.1-4.2) g/dL Albumin/Globulin Ratio (1.0-2.2) Prealbumin (18-45) mg/dL Triglycerides ( - 149) mg/dL Sepsis Event Note (H) - Evaluation Possible source of Sepsis: positive: Unknown (Patient is tachycardic, febrile, low plts ) - Sepsis Criteria Sepsis Criteria: Hematologic: platelets < 100,000; INR > 1.5, or a PTT>60 seconds Assessment/Plan - Problem List (1) SIRS (systemic inflammatory response syndrome) Impression: Patient presented with a progressive 24-hour period of fevers with tachycardia and other signs and symptoms of possible underlying bacteremia and possible line sepsis with questionable embolic lesion seen on exam. Patient does not meet the major or even minor Seth's criteria for endocarditis. However, currently unknown source of sepsis/SIRS. Port blood culture growing gram-positive bacilli. Patient is able to tolerate cephalosporins due to causing only nausea and not anaphylaxis. Patient would otherwise be immunocompromise due to chemotherapy received 3 weeks ago. Patient does have a history of multidrug- resistant UTIs in the past however UA was unremarkable on this admission. -Remains febrile 37.7-38.2c 03/20: I spoke to infectious disease who is on-call for [facility], Yuliana Cameron MD at cell phone number [phone]. Her recommendations after I presented the case to her and also explained that the patient is growing gram- positive bacilli in the port blood cultures is as follows: 1. We can use patient port even though that seems to be the source of her infection. That means we want to put antibiotics through it and we can use it for TPN. Her theory being that this patient may have something as mild as lactobacilli, and that we can get away with treating the line infection with antibiotics and we will not have to remove the port. 2. If the patient starts to get rigors, spikes temps while we put through TPN at night, we may not be able to use it for TPN. 3. Check daily blood cultures until negative and the timing of treatment is 2 weeks beyond the first set of negative cultures. 4. Change abx to Unasyn and Vancomycin. The patient states she is not really allergic to PCN just gets nauseated. So I am going to use compazine suppository bid fixed schedule dosing to help with that. 5. Reassess on Friday the . Decide if we need to move the port then or not depending on her clinical response and blood cultures. Dr. Cameron encouraged me to call if I need to using the above cell phone number. As for the TPN, she gets 3 L overnight. Pharmacy is going to do a 2 L bag, and will be short the calcium gluconate. As such I will give a separate calcium gluconate infusion every morning. She also has insulin in a bag and that will be continued. She may end up needing to get fluids during the day if she truly needs the fluids from the 3 L as opposed to 2 L. Tolerated ABX/TPN infusion via port overnight. Reports no nausea from Cefepime with scheduled anti-emetic suppository (requested by patient due to greatest anti-emetic effect PLAN Continue daily blood cultures Continue Cefepime and Vanco Continue to monitor for increase in temp, rigors. Reassess with [facility] as needed. (2) Murmur, cardiac Impression: No murmur auscultated Echo 03/20 showing E65-70%, mild nd trace-mild MR. No vegetations. 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 Patient's primary oncologist is at [facility]. Obtain old records. CT abdomen pelvis along with CT chest on 02/24/19 shows a fatty liver with decreased incisional fluid collection and significant decrease in small bowel distention along with decreased ascites and peritoneal implants. Patient has a stable mildly prominent pelvic lymph nodes in the pelvis. There is also mention of right middle lobe scarring or active atelectasis. Oval nodular component measuring 7 mm that is also stable. Would continue with medical management at this point. However chemotherapy likely would not be presumed if patient has underlying bacteremia or endocarditis and would need continued short-term versus long-term prolonged IV abx depending on cultures and ECHO. Patient had a self removal of her PEG tube on 03/17. Patient recently had 2 units of PRBCs on 03/18. Patient no longer sees Dr. Hopper which there is last note 04/28/18. Patient in the past has had a history of allergic reaction to Taxol. Would obtain a palliative care consultation. PLAN Next chemo scheduled for 03/24. Left message with patients Oncologist Dr. Alvarado at [phone] (ext 2 then ext 5) to touch base per pt request. Qualifiers: Laterality: unspecified laterality Qualified Code(s): C56.9 - Malignant neoplasm of unspecified ovary (4) Hyponatremia Impression: Likely euvolemic hyponatremia or SIADH as a result of cancerous process. Would also prevent hyperglycemic excursions as not to cause further pseudohyponatremia. Recieving LR IV at 75ml/hr Slight improvement overnight, Na 131 -> 134 today PLAN Continue with LR Monitor electrolytes (5) Anemia Impression: Likely secondary to chemotherapy as patient denies any blood loss or hematemesis/hematochezia. No dizziness or lightheadedness. S/p 2 units PRBCs on 03/18 H/H trending down: Hbg 8.8 to 8.2 today, Hct 25.5 to 23.6 today PLAN Continue to monitor. Currently stable and asymptomatic (pt reports feeling slightly stronger today than yesterday). Waiting for a callback from patients oncologist, will discuss transfusion threshold then. Qualifiers: Anemia type: unspecified type Qualified Code(s): D64.9 - Anemia, unspecified (6) Thrombocytopenia Impression: Likely chemotherapy-induced. Patient denies bleeding gums, hematemesis or hemato chezia. There are no petichiae on exam. Avoiding heparin and Lovenox for DVT prophylaxis for now. Pt does have risk for thromboembolic events d/t underlying cancerous process. WBC 4.9 RBC 2.5 Hgb 8.2 Hct 23.6 Plt 53 Continue to monitor (7) IDDM (insulin dependent diabetes mellitus) Impression: Hbg A1C 6.1 Small bowel obstruction with recent PEG tube removal. tolerating clear liquids, TPN at HS. SSI ordered BG 152 this am. Continue to monitor BG
[2019-03-21] MEDS ORDERED: SODIUM CHLORIDE FLUSH 0.9% 10 ML SYRINGE IVP PRN (11:59)
[2019-03-21] MEDS: METOPROLOL SUCCINATE 50 MG TABLET PO SCH (16:33)
[2019-03-21] MEDS: VANCOMYCIN INJ 1 GM, VANCOMYCIN INJ 500 MG in SODIUM CHLORIDE 0.9% 500 ML IV SCH (16:35)
[2019-03-21] MEDS: LACTATED RINGERS 1,000 ML IV SCH (19:49)
[2019-03-21] MEDS: TPN (CLINIMIX E 5/15) 2,000 ML with MULTIVITAMIN 10 ML, TRACE ELEMENTS V CONC 1 ML, POT... IV SCH ×7 (19:49)
[2019-03-22 04:28] LABS: BASOPHILS # (AUTO) 0.1 10^3/uL (0.0-0.1); BASOPHILS % (AUTO) 1.5 %; EOSINOPHILS % (AUTO) 0.4 %; HGB - HEMOGLOBIN 8.3 g/dL (12.0-16.0); LYMPHOCYTES # (AUTO) 0.8 10^3/uL (1.5-3.5); LYMPHOCYTES % (AUTO) 21.7 %; MEAN CORPUSCULAR HEMOGLOBIN 31.6 pg (27.0-31.0); MEAN CORPUSCULAR HGB CONC 34.1 g/dL (32.0-36.0); MEAN CORPUSCULAR VOLUME 92.6 fL (81.0-99.0); MEAN PLATELET VOLUME 8.2 fL (7.9-10.8); MONOCYTES # (AUTO) 0.7 10^3/uL (0.0-1.0); MONOCYTES % (AUTO) 18.4 %; NEUTROPHILS # (AUTO) 2.1 10^3/uL (1.5-6.6); PLT - PLATELET COUNT 52 10^3/uL (130-450); RED BLOOD COUNT 2.61 10^6/uL (4.20-5.40); RED CELL DISTRIBUTION WIDTH 17.6 % (12.0-15.0); WHITE BLOOD COUNT 3.7 x10^3/uL (4.8-10.8)
[2019-03-22] MEDS ORDERED: SODIUM CHLORIDE FLUSH 0.9% 10 ML SYRINGE ONE (04:31)
[2019-03-22 04:34] LABS: VANCOMYCIN,TROUGH 23.9 ug/mL (10.0-20.0)
[2019-03-22 04:39] LABS: ALBUMIN 2.6 g/dL (3.2-5.5); ALBUMIN/GLOBULIN RATIO 0.8 (1.0-2.2); BILIRUBIN,TOTAL 0.9 mg/dL (0.2-1.0); CALCIUM 8.9 mg/dL (8.5-10.3); CREATININE 0.7 mg/dL (0.4-1.0)
[2019-03-22] MEDS: PROCHLORPERAZINE 25 MG SUPP PR SCH ×2 (05:18→18:24)
[2019-03-22] MEDS: VANCOMYCIN INJ 1 GM, VANCOMYCIN INJ 500 MG in SODIUM CHLORIDE 0.9% 500 ML IV SCH (05:25)
[2019-03-22] MEDS: AMPICILLIN/SULBACTAM 3 GM in SODIUM CHLORIDE 0.9% MINIBAG 100 ML IV SCH ×3 (06:39→18:55)
[2019-03-22] MEDS: SODIUM CHLORIDE FLUSH 0.9% 10 ML SYRINGE IVP PRN (06:42)
[2019-03-22] MEDS ORDERED: VANCOMYCIN INJ 1 GM, VANCOMYCIN INJ 500 MG in SODIUM CHLORIDE 0.9% 500 ML IV ONE (09:00)
[2019-03-22] MEDS: CALCIUM GLUCONATE 1,000 MG in SODIUM CHLORIDE 0.9% 50 ML IV SCH (09:08)
[2019-03-22] MEDS: FAMOTIDINE 20 MG/2 ML VIAL IVP SCH ×2 (09:12→21:37)
--- NOTE | 2019-03-22 13:36 | CONSULTATION NOTE ---
Palliative Care Consultation - Referral Referring Provider: Dr. Camacho Osorio Time of Visit: 10:10-11:00 Referral setting: Hospitalized patient Referral Reason: Stage IIIC HGS Ovarian Cancer/Acute infection/Goals of Care - History of Present Illness Brief History of Present Illness: This is a sahra 58-year-old woman who was diagnosed with metastatic high-grade serous ovarian carcinoma, She had presented with lower abdominal pain, bloating, early satiety, and fatigue. She had a debulking surgery including TRISHA/BSO, omentectomy, sigmoid resection and LAR performed by Dr. Alvarado on 03/28/17. She did complete 6 cycles of carboplatinum and Abraxane, she was allergic to Taxol. She had progressive and free interval of 14 months, unfortunately she presented with a small bowel obstruction. At this point in time on 10/25/18 she underwent an exploratory laparotomy with extensive lysis of adhesions, PEG tube placement for decompression, and repair of a ventral hernia by Dr. Alvarado, she was at [facility] for greater a month at that point in time. Since that time she has continued on treatment, and is receiving carboplatinum and Doxil on a monthly basis, she does have significant nausea and fatigue following treatment, most recently she received a blood transfusion on 03/18 of 2 units of packed red blood cells. Her scans 02/24 Showed decrease in her small bowel distention, decrease in her ascites and peritoneal implants, as well as stable mildly prominent pelvic lymph nodes. Her CA 125 is reportedly in normal range currently. Patient has been progressing as far as less distention, able to progress her diet to clear liquids, she had been clamping her PEG tube, unfortunately it just fell out on 03/17. She has not had any progressive nausea, vomiting, or other signs of obstruction and appears to be tolerating this without difficulty. She has [facility] since October 2018. She gets her labs drawn on Friday through the [facility] nurse, her daughters and friend help occur up in the evenings, and she takes herself off in the morning. She has lost about 10 pounds over the last couple months, though she has had progressive fatigue she has been feeling better overall. Her pain is well controlled on her fentanyl 50 mcg patch, she is able to be ambulatory and active in her home, attend her ADLs, but overall she is quite sedentary. She did present to the ED with fevers and associated chills, at this point the source of infection appears to be Port-A-Cath/central line. Dr. Fonseca is currently working with [facility], and adapting the treatment. Patient is quite anxious regarding the diagnosis of MRSA, and implications. She will be talking with hospitalist later this afternoon regarding plan of treatment and to address questions from her and her family. Palliative care to meet with patient to establish rapport and goals. Medical/Surgical History - Past Medical History Cardiovascular: reports: Hypertension Respiratory: reports: None Neuro: None Endocrine/Autoimmune: reports: Type 2 diabetes GI: reports: GERD, Other (SBO) RN OTOLARYNGOLOGY: reports: Ovarian cancer : reports: None HEENT: reports: None Psych: reports: None Musculoskeletal: reports: Osteoarthritis Derm: reports: None MRSA Hx?: No - Past Surgical History General: reports: Cholecystectomy /RN OTOLARYNGOLOGY: reports: Hysterectomy, Oophrectomy, Other - Substance History Use: Uses substance without health or social issues: NONE Social History - Living Situation Living arrangement: At home Living Situation: With spouse/s.o. Support System: She lives with her Terry, who is retired. They have recently moved into a single level home, from the family home after her hospitalization this last winter. She has a very supportive and involved family, her step[place], Monika who is 24, Racheal who is 22 and in [place] in school, and 2 stepsons in [place]. She has a friend Terry who has been a huge part of the team, taking her to appointments and helping advocate for her with healthcare system. She is present for most of our visit. There are financial stressors with her not working, encouraged to pursue SSI, currently on FMLA. Family History - Family History Family History: Mother: , CVA/TIA (hx kidney transplant; 78), Father: , Cancer (kidney and bladder), Brother: Alive and Well (alive and well x 2) Family History Comment/Other: Just completed an appointment for Genetic counseling; should have the results in 2-3 weeks Medications/Allergies - Medications Active Medication List: Active Medications Acetaminophen (Tylenol) 1,000 mg PO Q6H PRN PRN Reason: PAIN Last Admin: 03/21/19 00:04 Dose: 1,000 mg Cyclobenzaprine HCl (Flexeril) 10 mg PO Q6H PRN PRN Reason: Spasms Famotidine (Pepcid) 20 mg IVP BID [facility] Last Admin: 03/22/19 09:12 Dose: 20 mg Fentanyl (Duragesic) 1 patch TOP Q72H [facility] Last Admin: 03/20/19 15:41 Dose: 1 patch Gabapentin (Neurontin) 600 mg PO TID PRN PRN Reason: PAIN Heparin Sodium (Beef Lung) () 30 - 50 unit IVP PRN PRN PRN Reason: Port Protocol (<24 hours) Last Admin: 03/21/19 12:13 Dose: 50 unit Hydralazine HCl (Apresoline Inj) 10 mg IVP Q4HR PRN PRN Reason: SBP>160 Lactated Ringer's (Lr) 1,000 mls @ 75 mls/hr IV .[id number] [facility] Last Infusion: 03/22/19 07:43 Dose: 75 mls/hr Multivitamins 10 ml/ Chromium/Copper/Manganese/Seleni/Zn 1 ml/ Potassium Chloride 40 meq/Insulin Human Regular 55 unit / Calcium Gluconate 1,000 mg/Magnesium Sulfate 3 gm/ Amino Ac/Electrol/Dextrose/Calcium 2,047.55 mls @ 175 mls/hr IV Q24H [facility]; Protocol Last Infusion: 03/22/19 09:07 Dose: Infused Fat Emulsion Intravenous (Intralipid 20%) 250 mls @ 16 mls/hr IV Q48H [facility] Last Infusion: 03/21/19 12:19 Dose: Infused Calcium Gluconate 1,000 mg/ (Sodium Chloride) 60 mls @ 60 mls/hr IV DAILY [facility] Last Admin: 03/22/19 09:08 Dose: 60 mls/hr Ampicillin Sodium/Sulbactam (Sodium 3 gm/ Sodium Chloride) 100 mls @ 200 mls/hr IV Q6HR [facility] Last Admin: 03/22/19 13:00 Dose: 200 mls/hr Vancomycin HCl 1 gm/Vancomycin HCl 250 mg/ Sodium Chloride 250 mls @ 166.667 mls/hr IV BID [facility] Insulin Aspart (Novolog) 1 - 9 unit SUBQ 0800,1200,1700,2100 [facility]; Protocol Last Admin: 03/21/19 21:58 Dose: Not Given Lorazepam (Ativan) 0.5 mg SL Q6H PRN PRN Reason: Anxiety Lorazepam (Ativan) 0.5 mg PO Q4H PRN PRN Reason: Nausea / Vomiting Metoprolol Succinate (Toprol Xl) 100 mg PO DAILY@1700 [facility] Last Admin: 03/21/19 16:33 Dose: 100 mg Morphine Sulfate (Ms Ir) 15 mg PO Q4H PRN PRN Reason: PAIN Ondansetron HCl (Zofran Inj) 4 mg IVP Q6HR PRN PRN Reason: Nausea / Vomiting Ondansetron HCl (Zofran Odt) 4 mg TL Q6HR PRN PRN Reason: Nausea / Vomiting Polyethylene Glycol (Miralax) 17 gm PO DAILY [facility] Last Admin: 03/21/19 08:34 Dose: Not Given Prochlorperazine Maleate (Compazine Supp) 25 mg MA Q12H [facility] Last Admin: 03/22/19 05:18 Dose: 25 mg Scopolamine HBr (Transderm-Scop) 1 patch TOP Q72H [facility] Last Admin: 03/20/19 15:40 Dose: 1 patch Sodium Chloride (Normal Saline Flush 0.9%) 10 ml IVP PRN PRN PRN Reason: NEEDED PER PROVIDER ORDERS Last Admin: 03/22/19 06:42 Dose: 10 ml Sodium Chloride (Normal Saline Flush 0.9%) 10 ml IVP 0100,0900,1700 [facility] Last Admin: 03/21/19 23:52 Dose: 10 ml Sodium Chloride (Normal Saline Flush 0.9%) 20 ml IVP PRN PRN PRN Reason: After Blood Draw Cholecalciferol (Vitamin D3) [Vitamin D3] 5,000 unit PO DAILY 04/27/17 Metoprolol Succinate [Toprol Xl] 100 mg PO DAILY PM 04/27/17 Pravastatin [Pravachol] 40 mg PO DAILY PM 04/27/17 Acetaminophen [Tylenol Extra Strength] 1,000 mg PO Q6H PRN 03/20/19 Cyclobenzaprine HCl 5 - 10 mg PO Q6H PRN 03/20/19 Gabapentin [Neurontin] 600 mg PO TID PRN 03/20/19 Ibuprofen [Motrin] 600 mg PO Q6H PRN 03/20/19 LORazepam [Lorazepam] 0.5 mg PO Q4H PRN 03/20/19 Lidocaine 1 patch TOP DAILY 03/20/19 Morphine Ir [Ms Ir] 15 mg PO Q4H PRN 03/20/19 OLANZapine [Olanzapine] 5 mg PO DAILY 03/20/19 Omeprazole 20 mg PO DAILY 03/20/19 Ondansetron [Ondansetron Odt] 8 mg PO Q8H PRN 03/20/19 Prochlorperazine Supp [Compazine Supp] 25 mg MA Q12H PRN 03/20/19 Scopolamine [Transderm-Scop] 1 patch TOP Q72H 03/20/19 fentaNYL [Fentanyl 50mcg patch] 1 patch TOP Q72H 03/20/19 - Allergies Allergies/Adverse Reactions: Allergies Allergy/AdvReac Type Severity Reaction Status Date / Time paclitaxel [From Taxol] Allergy Severe Anaphylaxis Verified 10/24/18 16:39 cefdinir AdvReac Severe Nausea Verified 10/24/18 16:39 clindamycin AdvReac Severe Nausea Verified 10/24/18 16:39 levofloxacin AdvReac Intermediate Nausea Verified 10/24/18 16:39 sulfamethoxazole AdvReac Intermediate Hallucinati Verified 10/24/18 16:39 [From Bactrim] ons meloxicam AdvReac Mild Nausea Verified 10/24/18 16:39 Penicillins AdvReac Mild Nausea Verified 10/24/18 16:39 metformin AdvReac severe abd Verified 12/09/18 13:36 pain Review of Systems - Constitutional Constitutional: reports: Fatigue. denies: Fever - Cardiovascular Cardiovascular: reports: Decr. exercise tolerance - Respiratory Respiratory: denies: SOB at rest - Gastrointestinal Gastrointestinal: reports: Constipation (reports bowels only move about once weekly; now starting to have regular color), Other (on clear liquids). denies: Nausea, Vomiting - Integumentary Integumentary: reports: Other (PEG site with drainage/rash improved per report) - Psychiatric Psychiatric: denies: Depression, Anxiety - Endocrine Endocrine: reports: Diabetes type 2 - Hematologic/Lymphatic Hematologic/Lymphatic: reports: Anemia, Recurrent infections (hx of UTIs) Physical Exam - Vital Signs Vital Signs: Vital Signs x48h Temp Pulse Resp BP Pulse Ox 03/22/19 08:00 36.4 C L 81 24 153/89 H 96 - Physical Exam General Appearance: positive: No acute distress Eyes Bilateral: positive: Normal inspection ENT: positive: No signs of dehydration Neck: positive: Trachea midline Respiratory: positive: No respiratory distress Abdomen: positive: Soft Skin: positive: Pallor, Other (drsg on exit site) Extremities: positive: No pedal edema Neurologic/Psychiatric: positive: Oriented x3, Mood/affect nml, Flat affect Palliative Care - POLST Patient has POLST: No Pain: Pain improved, Location (right upper quadrant; currently on fentanyl 50 mcg; has not needed anything for BTP;) Tiredness/Fatigue: Moderate (4-6) Performance Status: Patient does admit to the accumulative effects of her chemotherapy, she is less active, feeling more fatigue. She also though was severely anemic, and recently received 2 units of packed red blood cells. She is able to attend to her own ADLs. She has good support. - Palliative Care Discussion: Patient does share she understands her treatments are palliative in nature, she is hoping though to continue to work towards yet another remission. She reports she felt well during her year of remission. Her daughter is getting in July, this is her current goal. 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 She does admit to some anxiety, as she is away from "her team". Reassured Dr. Fonseca has been in contact with office, and notified Dr. Alvarado of her admit. Patient is scheduled for chemotherapy this Saturday 03/24. She does remember meeting with palliative care at [facility] though not recently, does not have an ongoing standing appointment or relationship. She does feel she has adequate support, though she has not sought out outside counseling or support. She knows that her daughters are anxious, and have been very much involved in her care and treatment plan. Her friend Anitra, provides the role of clearing house for the group. Anitra's perception is Rosalia is very strong and doing well. Results - Lab Results Lab results reviewed: Yes Fish Bones: 03/22/19 04:17 03/22/19 04:17 Lab and Imaging Results: Lab Results x24hrs 03/22/19 03/22/19 03/22/19 Range/Units 11:49 07:48 04:17 WBC (4.8-10.8) x10^3/uL RBC (4.20-5.40) 10^6/uL Hgb (12.0-16.0) g/dL Hct (37.0-47.0) % MCV (81.0-99.0) fL MCH (27.0-31.0) pg MCHC (32.0-36.0) g/dL RDW (12.0-15.0) % Plt Count (130-450) 10^3/uL MPV (7.9-10.8) fL Neut # (Auto) (1.5-6.6) 10^3/uL Lymph # (Auto) (1.5-3.5) 10^3/uL Sioux # (Auto) (0.0-1.0) 10^3/uL Eos # (Auto) (0.0-0.7) 10^3/uL Baso # (Auto) (0.0-0.1) 10^3/uL Absolute Nucleated RBC x10^3/uL Nucleated RBC % /100WBC Sodium (135-145) mmol/L Potassium (3.5-5.0) mmol/L Chloride (101-111) mmol/L Carbon Dioxide (21-32) mmol/L Anion Gap (6-13) BUN (6-20) mg/dL Creatinine (0.4-1.0) mg/dL Estimated GFR (MDRD) (>89) Glucose (70-100) mg/dL POC Whole Bld Glucose 132 H 130 H (70 - 100) mg/dL Calcium (8.5-10.3) mg/dL Total Bilirubin (0.2-1.0) mg/dL AST (10-42) IU/L ALT (10-60) IU/L Alkaline Phosphatase (42-121) IU/L Total Protein (6.7-8.2) g/dL Albumin (3.2-5.5) g/dL Globulin (2.1-4.2) g/dL Albumin/Globulin Ratio (1.0-2.2) Last Dose Date UNK Last Dose Time UNK Vancomycin Trough 23.9 H (10.0-20.0) ug/mL 03/22/19 03/22/19 03/21/19 Range/Units 04:17 04:17 20:28 WBC 3.7 L (4.8-10.8) x10^3/uL RBC 2.61 L (4.20-5.40) 10^6/uL Hgb 8.3 L (12.0-16.0) g/dL Hct 24.2 L (37.0-47.0) % MCV 92.6 (81.0-99.0) fL MCH 31.6 H (27.0-31.0) pg MCHC 34.1 (32.0-36.0) g/dL RDW 17.6 H (12.0-15.0) % Plt Count 52 L (130-450) 10^3/uL MPV 8.2 (7.9-10.8) fL Neut # (Auto) 2.1 (1.5-6.6) 10^3/uL Lymph # (Auto) 0.8 L (1.5-3.5) 10^3/uL [place]oux # (Auto) 0.7 (0.0-1.0) 10^3/uL Eos # (Auto) 0.0 (0.0-0.7) 10^3/uL Baso # (Auto) 0.1 (0.0-0.1) 10^3/uL Absolute Nucleated RBC 0.00 x10^3/uL Nucleated RBC % 0.1 /100WBC Sodium 134 L (135-145) mmol/L Potassium 4.2 (3.5-5.0) mmol/L Chloride 101 (101-111) mmol/L Carbon Dioxide 24 (21-32) mmol/L Anion Gap 9.0 (6-13) BUN 20 (6-20) mg/dL Creatinine 0.7 (0.4-1.0) mg/dL Estimated GFR (MDRD) 86 L (>89) Glucose 132 H (70-100) mg/dL POC Whole Bld Glucose 140 H (70 - 100) mg/dL Calcium 8.9 (8.5-10.3) mg/dL Total Bilirubin 0.9 (0.2-1.0) mg/dL AST 36 (10-42) IU/L ALT 50 (10-60) IU/L Alkaline Phosphatase 96 (42-121) IU/L Total Protein 6.0 L (6.7-8.2) g/dL Albumin 2.6 L (3.2-5.5) g/dL Globulin 3.4 (2.1-4.2) g/dL Albumin/Globulin Ratio 0.8 L (1.0-2.2) Last Dose Date Last Dose Time Vancomycin Trough (10.0-20.0) ug/mL 03/21/19 Range/Units 16:27 WBC (4.8-10.8) x10^3/uL RBC (4.20-5.40) 10^6/uL Hgb (12.0-16.0) g/dL Hct (37.0-47.0) % MCV (81.0-99.0) fL MCH (27.0-31.0) pg MCHC (32.0-36.0) g/dL RDW (12.0-15.0) % Plt Count (130-450) 10^3/uL MPV (7.9-10.8) fL Neut # (Auto) (1.5-6.6) 10^3/uL Lymph # (Auto) (1.5-3.5) 10^3/uL [place] # (Auto) (0.0-1.0) 10^3/uL Eos # (Auto) (0.0-0.7) 10^3/uL Baso # (Auto) (0.0-0.1) 10^3/uL Absolute Nucleated RBC x10^3/uL Nucleated RBC % /100WBC Sodium (135-145) mmol/L Potassium (3.5-5.0) mmol/L Chloride (101-111) mmol/L Carbon Dioxide (21-32) mmol/L Anion Gap (6-13) BUN (6-20) mg/dL Creatinine (0.4-1.0) mg/dL Estimated GFR (MDRD) (>89) Glucose (70-100) mg/dL POC Whole Bld Glucose 135 H (70 - 100) mg/dL Calcium (8.5-10.3) mg/dL Total Bilirubin (0.2-1.0) mg/dL AST (10-42) IU/L ALT (10-60) IU/L Alkaline Phosphatase (42-121) IU/L Total Protein (6.7-8.2) g/dL Albumin (3.2-5.5) g/dL Globulin (2.1-4.2) g/dL Albumin/Globulin Ratio (1.0-2.2) Last Dose Date Last Dose Time Vancomycin Trough (10.0-20.0) ug/mL Impression and Recommendations - Palliative Care Impression: Patient currently hospitalized with the acute infection attributed to her centra l line/Port-A-Cath. Patient is improving, remains anxious regarding the impact on her treatment plan for her ovarian cancer. She has been experiencing some cumulative effects of fatigue, nausea, and decreasing counts. She has had positive response to her treatment with improved and resolving small bowel obstruction, improved pain, decreased CA 125, and improved CT scans. Palliative care introduction to explore goals of care, and offer support. Recommendations/Counseling Done: 1. Pain of neoplastic origin. Patient has had improved pain with resolving SBO, and decreased tumor burden. Currently on fentanyl 50 mcg patch, without any titration the last couple months. She does use Flexeril and immediate release morphine for make the pain and discomfort. 2. Anxiety. This appears to be situational, patient denies persistent depression or persistent anxiety overall. She does feel like she has adequate support, patient nor her friend identify any difficulty with coping with her current situation. She is hoping for the best, including another remission. Loraine gotti does understand her treatment is palliative in nature, but has not explored her discussed prognosis with Dr. Alvarado at this point. 3. Advanced care planning. Patient's goals at this point in time are to understand current treatment plan for her new MRSA diagnosis, and plan for follow-up regarding pending chemotherapy treatment. She is hoping and looking forward to planning for her daughter's wedding in July, this is high on her priority list. She is supported by [facility] both for pharmacy and nursing services. Counseling provided regarding the role of palliative care, time spent to develop rapport and explore understanding of current illness, will revisit goals and offer support in the future, will obtain oncology visit notes to further understand plan of care. Time Spent: 50 minutes is greater than 50% of this done in counseling regarding the role of palliative care, goals of care, coordination of care with hospitalist and identification of patient's concerns and anticipatory guidance
--- NOTE | 2019-03-22 16:17 | PROVIDER PROGRESS NOTE ---
Subjective - Prog Note Date Prog Note Date: 03/22/19 Prog Note Time: 22:08 - Subjective Pt reports feeling: Improved Subjective: Since she has been started on antibiotics she has done well with out severe rigors. She continued to have fever on the . Has not had fever since then. She does get up and ambulate in the room. Blood pressure is a little elevated to 153-193 systolic. She denies chest pain, cough, shortness of breath. Her white cell count has not been elevated in a slightly low. Overall she is pancytopenic with low white cell count, low hemoglobin, and low platelets. Current Medications - Current Medications Current Medications: Active Medications Acetaminophen (Tylenol) 1,000 mg PO Q6H PRN PRN Reason: PAIN Last Admin: 03/21/19 00:04 Dose: 1,000 mg Cyclobenzaprine HCl (Flexeril) 10 mg PO Q6H PRN PRN Reason: Spasms Famotidine (Pepcid) 20 mg IVP BID [facility] Last Admin: 03/22/19 21:37 Dose: 20 mg Fentanyl (Duragesic) 1 patch TOP Q72H [facility] Last Admin: 03/20/19 15:41 Dose: 1 patch Gabapentin (Neurontin) 600 mg PO TID PRN PRN Reason: PAIN Heparin Sodium (Beef Lung) () 30 - 50 unit IVP PRN PRN PRN Reason: Port Protocol (<24 hours) Last Admin: 03/21/19 12:13 Dose: 50 unit Hydralazine HCl (Apresoline Inj) 10 mg IVP Q4HR PRN PRN Reason: SBP>160 Last Admin: 03/22/19 18:47 Dose: 10 mg Lactated Ringer's (Lr) 1,000 mls @ 75 mls/hr IV .[id number] [facility] Last Admin: 03/22/19 18:55 Dose: 75 mls/hr Multivitamins 10 ml/ Chromium/Copper/Manganese/Seleni/Zn 1 ml/ Potassium Chloride 40 meq/Insulin Human Regular 55 unit / Calcium Gluconate 1,000 mg/Magnesium Sulfate 3 gm/ Amino Ac/Electrol/Dextrose/Calcium 2,047.55 mls @ 175 mls/hr IV Q24H [facility]; Protocol Last Infusion: 03/22/19 21:38 Dose: 0 mls/hr Fat Emulsion Intravenous (Intralipid 20%) 250 mls @ 16 mls/hr IV Q48H [facility] Last Infusion: 03/22/19 21:38 Dose: 0 mls/hr Calcium Gluconate 1,000 mg/ (Sodium Chloride) 60 mls @ 60 mls/hr IV DAILY [facility] Last Infusion: 03/22/19 10:08 Dose: Infused Ampicillin Sodium/Sulbactam (Sodium 3 gm/ Sodium Chloride) 100 mls @ 200 mls/hr IV Q6HR [facility] Last Infusion: 03/22/19 19:25 Dose: Infused Vancomycin HCl 1 gm/Vancomycin HCl 250 mg/ Sodium Chloride 250 mls @ 166.667 mls/hr IV BID [facility] Last Admin: 03/22/19 21:38 Dose: 166.667 mls/hr Insulin Aspart (Novolog) 1 - 9 unit SUBQ 0800,1200,1700,2100 [facility]; Protocol Last Admin: 03/22/19 21:37 Dose: 1 unit Lorazepam (Ativan) 0.5 mg SL Q6H PRN PRN Reason: Anxiety Lorazepam (Ativan) 0.5 mg PO Q4H PRN PRN Reason: Nausea / Vomiting Metoprolol Succinate (Toprol Xl) 100 mg PO DAILY@1700 [facility] Last Admin: 03/22/19 17:09 Dose: 100 mg Morphine Sulfate (Ms Ir) 15 mg PO Q4H PRN PRN Reason: PAIN Ondansetron HCl (Zofran Inj) 4 mg IVP Q6HR PRN PRN Reason: Nausea / Vomiting Ondansetron HCl (Zofran Odt) 4 mg TL Q6HR PRN PRN Reason: Nausea / Vomiting Polyethylene Glycol (Miralax) 17 gm PO DAILY [facility] Last Admin: 03/22/19 19:46 Dose: Not Given Prochlorperazine Maleate (Compazine Supp) 25 mg AK Q12H [facility] Last Admin: 03/22/19 18:24 Dose: 25 mg Scopolamine HBr (Transderm-Scop) 1 patch TOP Q72H [facility] Last Admin: 03/20/19 15:40 Dose: 1 patch Sodium Chloride (Normal Saline Flush 0.9%) 10 ml IVP PRN PRN PRN Reason: NEEDED PER PROVIDER ORDERS Last Admin: 03/22/19 06:42 Dose: 10 ml Sodium Chloride (Normal Saline Flush 0.9%) 10 ml IVP 0100,0900,1700 [facility] Last Admin: 03/22/19 19:47 Dose: Not Given Sodium Chloride (Normal Saline Flush 0.9%) 20 ml IVP PRN PRN PRN Reason: After Blood Draw Cholecalciferol (Vitamin D3) [Vitamin D3] 5,000 unit PO DAILY 04/27/17 Metoprolol Succinate [Toprol Xl] 100 mg PO DAILY PM 04/27/17 Pravastatin [Pravachol] 40 mg PO DAILY PM 04/27/17 Acetaminophen [Tylenol Extra Strength] 1,000 mg PO Q6H PRN 03/20/19 Cyclobenzaprine HCl 5 - 10 mg PO Q6H PRN 03/20/19 Gabapentin [Neurontin] 600 mg PO TID PRN 03/20/19 Ibuprofen [Motrin] 600 mg PO Q6H PRN 03/20/19 LORazepam [Lorazepam] 0.5 mg PO Q4H PRN 03/20/19 Lidocaine 1 patch TOP DAILY 03/20/19 Morphine Ir [Ms Ir] 15 mg PO Q4H PRN 03/20/19 OLANZapine [Olanzapine] 5 mg PO DAILY 03/20/19 Omeprazole 20 mg PO DAILY 03/20/19 Ondansetron [Ondansetron Odt] 8 mg PO Q8H PRN 03/20/19 Prochlorperazine Supp [Compazine Supp] 25 mg AK Q12H PRN 03/20/19 Scopolamine [Transderm-Scop] 1 patch TOP Q72H 03/20/19 fentaNYL [Fentanyl 50mcg patch] 1 patch TOP Q72H 03/20/19 Objective - Vital Signs/Intake & Output Reviewed Vital Signs: Yes Intake & Output: Intake & Output 03/19/19 03/20/19 03/21/19 03/22/19 23:59 23:59 23:59 23:59 Intake Total 3344.167 6881.300 4288.383 Output Total 1975 4800 1150 Balance 8626.931 1486.300 3138.383 - Objective General Appearance: positive: No acute distress, Alert, Other (When examined today, her best friend and her were at the bedside) Eyes Bilateral: positive: PERRL ENT: positive: Pharynx nml Neck: positive: No JVD. negative: Stiff neck, Carotid bruit Respiratory: positive: Chest non-tender. negative: Wheezes, Rales, Rhonchi Cardiovascular: positive: Regular rate & rhythm. negative: Gallop/S4, Friction rub Abdomen: positive: Non-tender, No organomegaly, Nml bowel sounds, No distention Skin: positive: Warm, Dry Extremities: positive: Full ROM, No pedal edema Neurologic/Psychiatric: positive: Oriented x3, CN's nml (2-12), Motor nml - Lab Results Fish Bones: 03/22/19 04:17 03/22/19 04:17 Other Labs: Lab Results x24hrs 03/22/19 03/22/19 03/22/19 Range/Units 11:49 07:48 04:17 WBC (4.8-10.8) x10^3/uL RBC (4.20-5.40) 10^6/uL Hgb (12.0-16.0) g/dL Hct (37.0-47.0) % MCV (81.0-99.0) fL MCH (27.0-31.0) pg MCHC (32.0-36.0) g/dL RDW (12.0-15.0) % Plt Count (130-450) 10^3/uL MPV (7.9-10.8) fL Neut # (Auto) (1.5-6.6) 10^3/uL Lymph # (Auto) (1.5-3.5) 10^3/uL Sierra # (Auto) (0.0-1.0) 10^3/uL Eos # (Auto) (0.0-0.7) 10^3/uL Baso # (Auto) (0.0-0.1) 10^3/uL Absolute Nucleated RBC x10^3/uL Nucleated RBC % /100WBC Sodium (135-145) mmol/L Potassium (3.5-5.0) mmol/L Chloride (101-111) mmol/L Carbon Dioxide (21-32) mmol/L Anion Gap (6-13) BUN (6-20) mg/dL Creatinine (0.4-1.0) mg/dL Estimated GFR (MDRD) (>89) Glucose (70-100) mg/dL POC Whole Bld Glucose 132 H 130 H (70 - 100) mg/dL Calcium (8.5-10.3) mg/dL Total Bilirubin (0.2-1.0) mg/dL AST (10-42) IU/L ALT (10-60) IU/L Alkaline Phosphatase (42-121) IU/L Total Protein (6.7-8.2) g/dL Albumin (3.2-5.5) g/dL Globulin (2.1-4.2) g/dL Albumin/Globulin Ratio (1.0-2.2) Last Dose Date UNK Last Dose Time UNK Vancomycin Trough 23.9 H (10.0-20.0) ug/mL 03/22/19 03/22/19 03/21/19 Range/Units 04:17 04:17 20:28 WBC 3.7 L (4.8-10.8) x10^3/uL RBC 2.61 L (4.20-5.40) 10^6/uL Hgb 8.3 L (12.0-16.0) g/dL Hct 24.2 L (37.0-47.0) % MCV 92.6 (81.0-99.0) fL MCH 31.6 H (27.0-31.0) pg MCHC 34.1 (32.0-36.0) g/dL RDW 17.6 H (12.0-15.0) % Plt Count 52 L (130-450) 10^3/uL MPV 8.2 (7.9-10.8) fL Neut # (Auto) 2.1 (1.5-6.6) 10^3/uL Lymph # (Auto) 0.8 L (1.5-3.5) 10^3/uL Sierra # (Auto) 0.7 (0.0-1.0) 10^3/uL Eos # (Auto) 0.0 (0.0-0.7) 10^3/uL Baso # (Auto) 0.1 (0.0-0.1) 10^3/uL Absolute Nucleated RBC 0.00 x10^3/uL Nucleated RBC % 0.1 /100WBC Sodium 134 L (135-145) mmol/L Potassium 4.2 (3.5-5.0) mmol/L Chloride 101 (101-111) mmol/L Carbon Dioxide 24 (21-32) mmol/L Anion Gap 9.0 (6-13) BUN 20 (6-20) mg/dL Creatinine 0.7 (0.4-1.0) mg/dL Estimated GFR (MDRD) 86 L (>89) Glucose 132 H (70-100) mg/dL POC Whole Bld Glucose 140 H (70 - 100) mg/dL Calcium 8.9 (8.5-10.3) mg/dL Total Bilirubin 0.9 (0.2-1.0) mg/dL AST 36 (10-42) IU/L ALT 50 (10-60) IU/L Alkaline Phosphatase 96 (42-121) IU/L Total Protein 6.0 L (6.7-8.2) g/dL Albumin 2.6 L (3.2-5.5) g/dL Globulin 3.4 (2.1-4.2) g/dL Albumin/Globulin Ratio 0.8 L (1.0-2.2) Last Dose Date Last Dose Time Vancomycin Trough (10.0-20.0) ug/mL 03/21/19 Range/Units 16:27 WBC (4.8-10.8) x10^3/uL RBC (4.20-5.40) 10^6/uL Hgb (12.0-16.0) g/dL Hct (37.0-47.0) % MCV (81.0-99.0) fL MCH (27.0-31.0) pg MCHC (32.0-36.0) g/dL RDW (12.0-15.0) % Plt Count (130-450) 10^3/uL MPV (7.9-10.8) fL Neut # (Auto) (1.5-6.6) 10^3/uL Lymph # (Auto) (1.5-3.5) 10^3/uL Sierra # (Auto) (0.0-1.0) 10^3/uL Eos # (Auto) (0.0-0.7) 10^3/uL Baso # (Auto) (0.0-0.1) 10^3/uL Absolute Nucleated RBC x10^3/uL Nucleated RBC % /100WBC Sodium (135-145) mmol/L Potassium (3.5-5.0) mmol/L Chloride (101-111) mmol/L Carbon Dioxide (21-32) mmol/L Anion Gap (6-13) BUN (6-20) mg/dL Creatinine (0.4-1.0) mg/dL Estimated GFR (MDRD) (>89) Glucose (70-100) mg/dL POC Whole Bld Glucose 135 H (70 - 100) mg/dL Calcium (8.5-10.3) mg/dL Total Bilirubin (0.2-1.0) mg/dL AST (10-42) IU/L ALT (10-60) IU/L Alkaline Phosphatase (42-121) IU/L Total Protein (6.7-8.2) g/dL Albumin (3.2-5.5) g/dL Globulin (2.1-4.2) g/dL Albumin/Globulin Ratio (1.0-2.2) Last Dose Date Last Dose Time Vancomycin Trough (10.0-20.0) ug/mL ABX Reporting Has patient been on IV antibiotics over the past 48 hours?: Yes Sepsis Event Note (H) - Evaluation Current Stage of Sepsis: Ruled out Possible source of Sepsis: positive: Implantable device - Sepsis Criteria Sepsis Criteria: Recorded Temperature greater than 38.3C or Less than 36C, Recorded Heart Rate greater than 90 bpm, Hematologic: platelets < 100,000; INR > 1.5, or a PTT>60 seconds Assessment/Plan - Problem List (1) SIRS (systemic inflammatory response syndrome) Impression: Present on admission and resolved. Patient presented with a progressive 24-hour period of fevers with tachycardia and other signs and symptoms of possible underlying bacteremia and possible line sepsis with questionable embolic lesion seen on exam. Patient does not meet the major or even minor Seth's criteria for endocarditis. We feel the source of infection was the port since port blood culture growing gram-positive bacilli> Staph epidermidis. Patient is able to tolerate cephalosporins in spite of listing it as allergy bc causing only nausea and not anaphylaxis. Patient felt to be immunocompromised due to chemotherapy received 3 weeks ago. Patient does have a history of multidrug-resistant UTIs in the past however UA was unremarkable on this admission. T-max March 21: 38.2 at 9 in the morning. And 23:54. T-max March 21: 37.1 T-max today: 36.8 03/20 blood cultures are all positive for Staph epi (peripheral and port) 03/21 blood cultures are negative (1 peripheral and 1 port) 03/20: I spoke to infectious disease who is on-call for [facility], Yuliana Cameron MD at cell phone number [phone]. Her recommendations after I presented the case to her and also explained that the patient is growing gram- positive bacilli in the port blood cultures is as follows: 1. We can use patient port even though that seems to be the source of her infection. That means we want to put antibiotics through it and we can use it for TPN. Her theory being that this patient may have something as mild as lactobacilli, and that we can get away with treating the line infection with antibiotics and we will not have to remove the port. 2. If the patient starts to get rigors, spikes temps while we put through TPN at night, we may not be able to use it for TPN. 3. Check daily blood cultures until negative and the timing of treatment is 2 weeks beyond the first set of negative cultures. 4. Change abx to Unasyn and Vancomycin from Cefipime/Vancomycin. The patient states she is not really allergic to PCN just gets nauseated. So I am going to use compazine suppository bid fixed schedule dosing to help with that. 5. Reassess on Friday the . Decide if we need to move the port then or not depending on her clinical response and blood cultures. Dr. Cameron encouraged me to call if I need to using the above cell phone number. Tolerated ABX/TPN infusion via port since 03/20 pm. No fever while using port 03/21. Reports no nausea from Cefepime with scheduled anti-emetic suppository (requested by patient due to greatest anti-emetic effect) 03/22: Day #2 Unasyn/Day #3 Vancomycin. I spoke to Dr. Cameron again. Cultures are growing staph epidermidis. Patient is tolerating TPN and antibiotics through the port that is most likely the source of infection. Staph epidermidis is a bacteria that will create a biofilm on the line. Many times the line must be removed. However she feels that we can keep the line in since there have been no fevers since March 20. And blood cultures are negative March 21 while on treatment 1. Repeat blood cultures daily for 2-3 days. 2. If blood cultures negative AND no fever while using port, may keep port in. 3. If blood cultures become positive on 03/21 or 03/22, port must be removed. 4. If port is removed, peripheral antibiotics recommended for 48-72 hours with daily blood cultures. 5. If blood those cultures negative after 48 hours, may replace central line access at that time 6. If patient spikes a fever while using port for TPN, port must come out 7. Stop Unasyn and continue Vancomycin. 8. Consider a Vanco lock in port to treat port as well. PLAN Continue daily blood cultures as above Continue Vanco Day #3 today Continue to monitor for increase in temp, rigors. Reassess with [facility] ID as needed. Plan for 14 days of vancomycin from (right now) 03/21, so that will be finishing 04/04/19. She would like to go home after we determine whether or not port stays. If she can't go home, wants to come to [facility] for daily infusion. Only if she can't go home OR come to the [facility] will she consider SNF for abx. (2) Murmur, cardiac Impression: No murmur auscultated and her ECHO is a preliminary report so far. Final report pending. Echo 03/20 showing EF 65-70%, mild nd trace-mild MR. No vegetations. 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 Patient's primary oncologist is at [facility]. Obtain old records. CT abdomen pelvis along with CT chest on 02/24/19 shows a fatty liver with decreased incisional fluid collection and significant decrease in small bowel distention along with decreased ascites and peritoneal implants. Patient has a stable mildly prominent pelvic lymph nodes in the pelvis. There is also mention of right middle lobe scarring or active atelectasis. Oval nodular component measuring 7 mm that is also stable. Would continue with medical management at this point. However chemotherapy likely would not be presumed if patient has underlying bacteremia or endocarditis and would need continued short-term versus long-term prolonged IV abx depending on cultures and ECHO. Patient had a self removal of her PEG tube on 03/17. Patient recently had 2 units of PRBCs on 03/18. Patient no longer sees Dr. Hopper with last note 04/28/18 in our EMR. She now sees Dr. Alvarado. Patient in the past has had a history of allergic reaction to Taxol. Would obtain a palliative care consultation. PLAN Next chemo scheduled for 03/24. Left message on 03/[address] Alvarado at [phone] (ext 2 then ext 5) to touch base per pt request. She has been seen by Palliative Care today I have asked patient, her friend (who had a list of questions today-all answered after 30 minutes), and her to begin to consider what end of life care would look like for her. She is still undergoing therapy, but at some point she will become very ill, and she needs to let us know when she has lost her quality of life as defined by her. Qualifiers: Laterality: unspecified laterality Qualified Code(s): C56.9 - Malignant neoplasm of unspecified ovary (4) Hyponatremia Impression: Likely euvolemic hyponatremia or SIADH as a result of cancerous process. Would also prevent hyperglycemic excursions as not to cause further pseudohyponatremia. Recieving LR IV at 75ml/hr Slight improvement overnight, Na 131 -> 134 today PLAN Continue with LR Monitor electrolytes (5) Anemia Impression: Likely secondary to chemotherapy as patient denies any blood loss or hematemesis/hematochezia. No dizziness or lightheadedness. S/p 2 units PRBCs on 03/18 H/H trending down: Hbg 8.8-> 8.2 ->8.3 today, Hct 25.5-> 23.6->24.2 today PLAN Continue to monitor. Currently stable and asymptomatic (pt reports feeling slightly stronger today than yesterday). Waiting for a callback from patients oncologist, will discuss transfusion threshold then. Qualifiers: Anemia type: unspecified type Qualified Code(s): D64.9 - Anemia, unspecified (6) Thrombocytopenia Impression: Likely chemotherapy-induced. Patient denies bleeding gums, hematemesis or hematochezia. There are no petichiae on exam. Avoiding heparin and Lovenox for DVT prophylaxis for now. Pt does have risk for thromboembolic events d/t underlying cancerous process. WBC 4.9 RBC 2.5 Hgb 8.2 Hct 23.6 Plt 53 Continue to monitor (7) IDDM (insulin dependent diabetes mellitus) Impression: Hbg A1C 6.1 Small bowel obstruction with recent PEG tube removal. tolerating clear liquids, TPN at HS. SSI ordered BG 152 this am. Continue to monitor BG (8) Protein Calorie Malnutrition At home she gets 3 L overnight. Pharmacy is mixing a 2 L bag, and will be short the calcium gluconate. As such I will give a separate calcium gluconate infusion every morning. She also has insulin in a bag and that will be continued. She may end up needing to get fluids during the day if she truly needs the fluids from the 3 L as opposed to 2 L. She did spike a temperature of the first day and night she was here while on TPN. Since March 20 she has not had any fevers. As such was still continuing to use the port for TPN. (3) Ovarian cancer Qualifiers: Qualified Code(s): C56.9 - Malignant neoplasm of unspecified ovary
[2019-03-22] MEDS: METOPROLOL SUCCINATE 50 MG TABLET PO SCH (17:09)
[2019-03-22] MEDS: LACTATED RINGERS 1,000 ML IV SCH (18:55)
[2019-03-22] MEDS: TPN (CLINIMIX E 5/15) 2,000 ML with MULTIVITAMIN 10 ML, TRACE ELEMENTS V CONC 1 ML, POT... IV SCH ×7 (19:41)
[2019-03-22] MEDS: FAT EMULSION 20% 250 ML IV SCH (19:42)
[2019-03-22] MEDS: INSULIN ASPART 300 UNIT/3 ML PEN SUBQ SCH ×3 (19:46→21:37)
[2019-03-22] MEDS: SODIUM CHLORIDE FLUSH 0.9% 10 ML SYRINGE IVP SCH ×2 (19:46→19:47)
[2019-03-22] MEDS: POLYETHYLENE GLYCOL 3350 17 GM PACKET PO SCH (19:46)
[2019-03-22] MEDS: VANCOMYCIN INJ 1 GM, VANCOMYCIN INJ 250 MG in SODIUM CHLORIDE 0.9% 250 ML IV SCH (21:38)
[2019-03-23] MEDS: AMPICILLIN/SULBACTAM 3 GM in SODIUM CHLORIDE 0.9% MINIBAG 100 ML IV SCH ×3 (00:06→12:19)
[2019-03-23] MEDS: SODIUM CHLORIDE FLUSH 0.9% 10 ML SYRINGE IVP SCH ×4 (00:08→23:51)
[2019-03-23] MEDS: SODIUM CHLORIDE FLUSH 0.9% 10 ML SYRINGE IVP PRN ×2 (00:52→06:04)
[2019-03-23 05:44] LABS: ALBUMIN 2.6 g/dL (3.2-5.5); ALBUMIN/GLOBULIN RATIO 0.7 (1.0-2.2); BILIRUBIN,TOTAL 0.9 mg/dL (0.2-1.0); CALCIUM 9.2 mg/dL (8.5-10.3); CREATININE 0.7 mg/dL (0.4-1.0); MAGNESIUM 1.8 mg/dL (1.7-2.8); PHOSPHORUS 4.3 mg/dL (2.5-4.6); TOTAL PROTEIN 6.4 g/dL (6.7-8.2)
[2019-03-23] MEDS: PROCHLORPERAZINE 25 MG SUPP PR SCH ×2 (06:04→17:15)
[2019-03-23] MEDS: POLYETHYLENE GLYCOL 3350 17 GM PACKET PO SCH (08:44)
[2019-03-23] MEDS: INSULIN ASPART 300 UNIT/3 ML PEN SUBQ SCH ×4 (08:59→21:33)
[2019-03-23] MEDS: LACTATED RINGERS 1,000 ML IV SCH ×2 (09:00→23:51)
[2019-03-23] MEDS: FAMOTIDINE 20 MG/2 ML VIAL IVP SCH ×2 (09:01→20:50)
[2019-03-23] MEDS: CALCIUM GLUCONATE 1,000 MG in SODIUM CHLORIDE 0.9% 50 ML IV SCH (09:04)
[2019-03-23] MEDS: VANCOMYCIN INJ 1 GM, VANCOMYCIN INJ 250 MG in SODIUM CHLORIDE 0.9% 250 ML IV SCH ×2 (10:24→21:35)
--- NOTE | 2019-03-23 14:57 | CONSULTATION NOTE ---
Palliative Care Follow Up - Referral Referring Provider: Dr. Camacho Osorio Time of Visit: [id number] Referral setting: Hospitalized patient Referral Reason: Stage IIC HGS Ovarian CA/Acute infection - Information Sources Records reviewed: Previous records reviewed History/Review of Systems obtained from: Patient, Family ( Terry and Friend Anitra present) Exam limitations: No limitations - History of Present Illness Update Brief HPI Update: Please see HPI 03/22/2019. 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 She had PFS for 14 months, and recurred with presentation of SBO 10/2018. She has received monthly treatment on carboplatinum and Doxil, and has had continued improvement of her CA 125, and improvement in her total tumor burden. She unfortunately also has had cumulative side effects, presenting with pancytopenia with her last treatm ent, and on 03/18 received 2 units of packed red blood cells. She presented on 03/20 with fevers and associated chills, at this point in time the thought is her source of infection is her central line. She has 1+ blood culture with staph epidermidis, hospitalist is been working with [facility] for ongoing treatment. She still has pending final cultures from 03/20. She is feeling much better, has not had any further fever, is quite antsy to get home. She presents today with fairly low tumor burden, her nausea despite antibiotics is doing fairly well with twice daily Compazine. She reports she has long- standing nausea but this is not outside of even her cancer diagnosis. She has been receiving her TPN, she has been ambulating without difficulty. She is fe eling actually fairly good, as she was due for chemotherapy on 03/24 and often feels best about a week and a half prior to her treatment. Her pain is well controlled, she is not needing thing for breakthrough, she is on fentanyl 50 mcg patch. She has been taking clear liquids, but remains anxious regarding being able to return home, and return to her treatment plan. Social History - Living Situation Living arrangement: At home Living Situation: With spouse/s.o. Support System: Has strong support system, of family and friends. She has a friend Anitra who does act as clearing house, and helps manage her medical appointments and information. She has been part of her journey since the beginning. And Rosalia depends on her often navigate to a very complex healthcare system. He is currently receiving care if through [facility], she has been on TPN since 10/2018. Medications/Allergies - Medications Active Medication List: Active Medications Acetaminophen (Tylenol) 1,000 mg PO Q6H PRN PRN Reason: PAIN Last Admin: 03/21/19 00:04 Dose: 1,000 mg Cyclobenzaprine HCl (Flexeril) 10 mg PO Q6H PRN PRN Reason: Spasms Famotidine (Pepcid) 20 mg IVP BID [facility] Last Admin: 03/23/19 09:01 Dose: 20 mg Fentanyl (Duragesic) 1 patch TOP Q72H [facility] Last Admin: 03/20/19 15:41 Dose: 1 patch Gabapentin (Neurontin) 600 mg PO TID PRN PRN Reason: PAIN Heparin Sodium (Beef Lung) () 30 - 50 unit IVP PRN PRN PRN Reason: Port Protocol (<24 hours) Last Admin: 03/21/19 12:13 Dose: 50 unit Hydralazine HCl (Apresoline Inj) 10 mg IVP Q4HR PRN PRN Reason: SBP>160 Last Admin: 03/22/19 18:47 Dose: 10 mg Lactated Ringer's (Lr) 1,000 mls @ 75 mls/hr IV .[id number] [facility] Last Admin: 03/23/19 09:00 Dose: 75 mls/hr Multivitamins 10 ml/ Chromium/Copper/Manganese/Seleni/Zn 1 ml/ Potassium Chlo ride 40 meq/Insulin Human Regular 55 unit / Calcium Gluconate 1,000 mg/Magnesium Sulfate 3 gm/ Amino Ac/Electrol/Dextrose/Calcium 2,047.55 mls @ 175 mls/hr IV Q24H [facility]; Protocol Stop: 03/23/19 18:59 Last Infusion: 03/23/19 10:33 Dose: Infused Calcium Gluconate 1,000 mg/ (Sodium Chloride) 60 mls @ 60 mls/hr IV DAILY [facility] Last Infusion: 03/23/19 10:32 Dose: Infused Multivitamins 10 ml/ Chromium/Copper/Manganese/Seleni/Zn 1 ml/ Potassium Chloride 40 meq/Sodium Chloride 20 meq/Insulin Human Regular 55 unit/Calcium Gluconate 1,000 mg/Magnesium Sulfate 3 gm/ Amino Ac/Electrol/Dextrose/Calcium 2,052.55 mls @ 175.427 mls/hr IV Q24H [facility]; Protocol Fat Emulsion Intravenous (Intralipid 20%) 250 mls @ 21 mls/hr IV Q24H [facility] Vancomycin HCl 1 gm/Vancomycin HCl 250 mg/ Sodium Chloride 250 mls @ 166.667 mls/hr IV BID@1000,2200 [facility] Insulin Aspart (Novolog) 1 - 9 unit SUBQ 0800,1200,1700,2100 [facility]; Protocol Last Admin: 03/23/19 12:59 Dose: Not Given Lorazepam (Ativan) 0.5 mg SL Q6H PRN PRN Reason: Anxiety Lorazepam (Ativan) 0.5 mg PO Q4H PRN PRN Reason: Nausea / Vomiting Metoprolol Succinate (Toprol Xl) 100 mg PO DAILY@1700 [facility] Last Admin: 03/22/19 17:09 Dose: 100 mg Morphine Sulfate (Ms Ir) 15 mg PO Q4H PRN PRN Reason: PAIN Ondansetron HCl (Zofran Inj) 4 mg IVP Q6HR PRN PRN Reason: Nausea / Vomiting Ondansetron HCl (Zofran Odt) 4 mg TL Q6HR PRN PRN Reason: Nausea / Vomiting Polyethylene Glycol (Miralax) 17 gm PO DAILY [facility] Last Admin: 03/23/19 08:44 Dose: Not Given Prochlorperazine Maleate (Compazine Supp) 25 mg [place] Q12H [facility] Last Admin: 03/23/19 06:04 Dose: 25 mg Scopolamine HBr (Transderm-Scop) 1 patch TOP Q72H [facility] Last Admin: 03/20/19 15:40 Dose: 1 patch Sodium Chloride (Normal Saline Flush 0.9%) 10 ml IVP PRN PRN PRN Reason: NEEDED PER PROVIDER ORDERS Last Admin: 03/23/19 06:04 Dose: 10 ml Sodium Chloride (Normal Saline Flush 0.9%) 10 ml IVP 0100,0900,1700 [facility] Last Admin: 03/23/19 09:01 Dose: 10 ml Sodium Chloride (Normal Saline Flush 0.9%) 20 ml IVP PRN PRN PRN Reason: After Blood Draw Cholecalciferol (Vitamin D3) [Vitamin D3] 5,000 unit PO DAILY 04/27/17 Metoprolol Succinate [Toprol Xl] 100 mg PO DAILY PM 04/27/17 Pravastatin [Pravachol] 40 mg PO DAILY PM 04/27/17 Acetaminophen [Tylenol Extra Strength] 1,000 mg PO Q6H PRN 03/20/19 Cyclobenzaprine HCl 5 - 10 mg PO Q6H PRN 03/20/19 Gabapentin [Neurontin] 600 mg PO TID PRN 03/20/19 Ibuprofen [Motrin] 600 mg PO Q6H PRN 03/20/19 LORazepam [Lorazepam] 0.5 mg PO Q4H PRN 03/20/19 Lidocaine 1 patch TOP DAILY 03/20/19 Morphine Ir [Ms Ir] 15 mg PO Q4H PRN 03/20/19 OLANZapine [Olanzapine] 5 mg PO DAILY 03/20/19 Omeprazole 20 mg PO DAILY 03/20/19 Ondansetron [Ondansetron Odt] 8 mg PO Q8H PRN 03/20/19 Prochlorperazine Supp [Compazine Supp] 25 mg [place] Q12H PRN 03/20/19 Scopolamine [Transderm-Scop] 1 patch TOP Q72H 03/20/19 fentaNYL [Fentanyl 50mcg patch] 1 patch TOP Q72H 03/20/19 - Allergies Allergies/Adverse Reactions: Allergies Allergy/AdvReac Type Severity Reaction Status Date / Time paclitaxel [From Taxol] Allergy Severe Anaphylaxis Verified 10/24/18 16:39 cefdinir AdvReac Severe Nausea Verified 10/24/18 16:39 clindamycin AdvReac Severe Nausea Verified 10/24/18 16:39 levofloxacin AdvReac Intermediate Nausea Verified 10/24/18 16:39 sulfamethoxazole AdvReac Intermediate Hallucinati Verified 10/24/18 16:39 [From Bactrim] ons meloxicam AdvReac Mild Nausea Verified 10/24/18 16:39 Penicillins AdvReac Mild Nausea Verified 10/24/18 16:39 metformin AdvReac severe abd Verified 12/09/18 13:36 pain Review of Systems - Constitutional Constitutional: reports: Fatigue (improved). denies: Fever - Cardiovascular Cardiovascular: reports: Decr. exercise tolerance - Respiratory Respiratory: denies: SOB at rest - Gastrointestinal Gastrointestinal: denies: Nausea (controlled on current regimen) - Integumentary Integumentary: reports: Dryness, Other (reports PEG site drainage almost resolved) - Neurological Neurological: reports: Other (mild intermittent neuropathy in feet; has used gabapentin in past does not feel that severe currently) - Psychiatric Psychiatric: reports: Anxiety (pending discharge plan). denies: Depression - Endocrine Endocrine: reports: Diabetes type 2 - Hematologic/Lymphatic Hematologic/Lymphatic: reports: Recurrent infections (hx UTIs) Physical Exam - Vital Signs Vital Signs: Vital Signs x48h Temp Pulse Resp BP Pulse Ox 03/23/19 07:39 36.7 C 90 18 173/83 H 99 - Physical Exam General Appearance: positive: No acute distress ENT: positive: No signs of dehydration Neck: positive: Trachea midline Respiratory: positive: No respiratory distress Abdomen: positive: Soft Skin: positive: Dryness, Bruising Extremities: positive: No pedal edema Neurologic/Psychiatric: positive: Oriented x3, Mood/affect nml Palliative Care - POLST Patient has POLST: No POLST Status: Full Code Pain: Pain unchanged, Location (right upper quadrant; currently controlled on Fentanyl 50 mcg patch; has been improving with response to chemotherapy; pain worsens with cramping and ache with chemotherapy; has BTP MS with relief/flexiril;) Tiredness/Fatigue: Moderate (4-6) Drowsiness/Sedation: None Nausea: Mild (1-3) Depression: None Anxiety: Mild (1-3) Dyspnea: Mild (1-3) Anorexia: Moderate (4-6) Sleep: Sleeps poorly (difficult to get comfortable here at hospital; sleeps in recliner at home; up in chair today) Constipation: Intermittent constipation Feelings of wellbeing/Perceived Quality of Life: Fair, Acceptable, Improved Performance Status: Patient is feeling better, ambulating around the halls. Ambulatory in her room and able to independently toilet. Patient is independent in her ADLs at home, does have significant fatigue with treatment, but does get some respite and able to do small household tasks, as well as feel a little bit "normal". I would put her at a PPS of 70% - Palliative Care Discussion: Patient is anxious to get home, we did discuss in the context of transitioning, will go ahead and help facilitate contact with [facility] as this is patient's primary choice in receiving her 2 weeks of Vanco. She has been managing with the support of her friends and family, her TPN without difficulty. We did discuss patient's current support network, she morena by focusing on the positive, has not participated in any of the support groups at [facility]. She has been on some different blocks, has not found them very helpful. She perceives her journey is fairly individual, and is choosing to cope by focusing on the positive. Reviewed her experiences and feelings regarding her journey up to this point. Results - Lab Results Lab results reviewed: Yes Fish Bones: 03/22/19 04:17 03/23/19 04:55 Lab and Imaging Results: Lab Results x24hrs 03/23/19 03/23/19 03/23/19 Range/Units 11:34 07:36 04:55 Sodium 133 L (135-145) mmol/L Potassium 3.9 (3.5-5.0) mmol/L Chloride 98 L (101-111) mmol/L Carbon Dioxide 24 (21-32) mmol/L Anion Gap 11.0 (6-13) BUN 20 (6-20) mg/dL Creatinine 0.7 (0.4-1.0) mg/dL Estimated GFR (MDRD) 86 L (>89) Glucose 130 H (70-100) mg/dL POC Whole Bld Glucose 123 H 151 H (70 - 100) mg/dL Calcium 9.2 (8.5-10.3) mg/dL Phosphorus 4.3 (2.5-4.6) mg/dL Magnesium 1.8 (1.7-2.8) mg/dL Total Bilirubin 0.9 (0.2-1.0) mg/dL AST 33 (10-42) IU/L ALT 47 (10-60) IU/L Alkaline Phosphatase 94 (42-121) IU/L Total Protein 6.4 L (6.7-8.2) g/dL Albumin 2.6 L (3.2-5.5) g/dL Globulin 3.8 (2.1-4.2) g/dL Albumin/Globulin Ratio 0.7 L (1.0-2.2) Prealbumin 11 L (18-45) mg/dL Triglycerides 228 H ( - 149) mg/dL 03/22/19 03/22/19 Range/Units 20:24 16:29 Sodium (135-145) mmol/L Potassium (3.5-5.0) mmol/L Chloride (101-111) mmol/L Carbon Dioxide (21-32) mmol/L Anion Gap (6-13) BUN (6-20) mg/dL Creatinine (0.4-1.0) mg/dL Estimated GFR (MDRD) (>89) Glucose (70-100) mg/dL POC Whole Bld Glucose 157 H 132 H (70 - 100) mg/dL Calcium (8.5-10.3) mg/dL Phosphorus (2.5-4.6) mg/dL Magnesium (1.7-2.8) mg/dL Total Bilirubin (0.2-1.0) mg/dL AST (10-42) IU/L ALT (10-60) IU/L Alkaline Phosphatase (42-121) IU/L Total Protein (6.7-8.2) g/dL Albumin (3.2-5.5) g/dL Globulin (2.1-4.2) g/dL Albumin/Globulin Ratio (1.0-2.2) Prealbumin (18-45) mg/dL Triglycerides ( - 149) mg/dL Impression and Recommendations - Palliative Care Impression: This is a 58-year-old woman with metastatic high-grade serous ovarian carcinoma, currently undergoing treatment with carboplatinum and Doxil. She did present with acute infection, awaiting final cultures, with plan to transition home with IV antibiotics. Palliative care introduction to establish rapport, evaluate symptom management, and explore goals of care. Recommendations/Counseling Done: 1. Pain of neoplastic origin. Patient continues with improved pain management, on fentanyl 50 mcg patch. Pain has exacerbated with start of treatment cycles for a few days, but has improved overall. Given patient's underlying fatigue, may consider in the near future titrating her down to 37.5 mcg. She reports this is the plan in the works, Dr. Alvarado does manage her pain medications. She has not needed to use the gabapentin, she has not had neuropathic discomfort as she has had in the past with her treatment, she uses the Flexeril and immediate release morphine for exacerbation during treatment cycles. 2. Anxiety. This again appears to be situational, he is hoping to transition home soon. She finds it somewhat distressing to be in the hospital, she has had prolonged hospital stays before and finds being at home much more therapeutic. Will assist in transition planning, update to hospitalist regarding goals to return home versus outpatient follow-up antibiotic treatment. She is aware this may be dictated by her insurance coverage. 3. Acute infection. Patient's SIRS has resolved, patient without fever, still awaiting final blood cultures from 03/20, preliminary results available only, except right hand. She is currently on vancomycin, with the plan to continue to treat until 04/04 her hospitalist report from [facility]. Patient currently receiving support from [facility], would be amenable to learning and doing in home setting. Discussed management, would prefer Dr. Alvarado as he is currently managing TPN to manage Vanco as well, has not been in touch recently with her PCP, and trying to keep her care centralized. Follow-up with hospitalist, to start process with case management, to facilitate transition when appropriate. At this point in time does appear patient is not going to have to have her port removed, but aware awaiting final outcome of cultures. Patient hopeful can be smooth hand off to oncologist, he is in office today and willing to talk with hospitalist, information passed on. 4. Goals of care. Patient is hopeful to be able to return to her home setting soon, is willing to do antibiotics at home. She is aware will need to wait on pending cultures. She is anxious to get back to her treatment, feels like she has adequate support, and symptom burden currently manageable. She continues to hope for the best, finds focusing on the positive has helped her cope. Time Spent: 45 minutes with greater than 50% of this done in counseling and coordination of care.
[2019-03-23] MEDS: fentaNYL 50 MCG PATCH TOP SCH (15:15)
[2019-03-23] MEDS: SCOPOLAMINE PATCH TOP SCH (15:16)
--- NOTE | 2019-03-23 16:18 | PROVIDER PROGRESS NOTE ---
Assessment/Plan - Problem List (1) Staphylococcus epidermidis bacteremia Assessment/Plan: Tolerated ABX/TPN infusion via port since 03/20 pm. No fever while using port 03/21-03/23. Blood cultures are growing staph epidermidis. The port is most likely the source of infection. Staph epidermidis is a bacteria that will create a biofilm on the line. Many times the line must be removed. However ID at felt that we can keep the line in since there have been no fevers since March 21 if blood cultures are negative from March 21 while on treatment. The plan was spelled out as such: 1. Repeat blood cultures daily for 2-3 days. 2. If blood cultures negative AND no fever while using port, may keep port in. 3. If blood cultures become positive from 03/21 or 03/22, port must be removed. If port is removed, peripheral antibiotics recommended for 48-72 hours with daily blood cultures. If blood cultures negative after 48 hours, may replace central line access at that time 4. If patient spikes a fever while using port for TPN, port must come out 5. Stop Unasyn and continue Vancomycin. 6. Consider a Vanco lock in port to treat port as well. Plan for 14 days of vancomycin from 03/21, so that will be finishing 04/04/19. I sent a paper prescription with Case management, to send to her infusion company, to start to get prior authorization. She would like to go home after we determine whether or not port stays. If she can't go home, wants to come [place] [facility] [place]. Only if she can't go home OR come to the [facility] will she consider SNF for antibiotics. (2) Aortic stenosis, mild Assessment/Plan: Echo done 03/20/19 shows LV EF 65-70%, mild and trace-mild MR. No vegetations. (3) Pancytopenia due to chemotherapy Assessment/Plan: Reports no nausea with scheduled anti-emetic suppository (requested by patient due to greatest anti-emetic effect). Follow CBC daily while here. (4) Ovarian cancer Qualifiers: Qualified Code(s): C56.9 - Malignant neoplasm of unspecified ovary Assessment/Plan: Further chemo as per her Oncologist. I will reach out to Dr Alvarado, , who also will be in charge of the tpn and antibiotics, when we have a plan. (5) Hyponatremia Assessment/Plan: Replace and monitor. (6) IDDM (insulin dependent diabetes mellitus) Assessment/Plan: On carb-controlled diet, fingerstick checks and ss Insulin coverage. (7) Protein calorie malnutrition Assessment/Plan: The tpn continues daily, at home she gets it nightly. (8) SIRS (systemic inflammatory response syndrome) Assessment/Plan: Resolved. - Current Meds Current Meds: Current Medications Generic Name Dose Route Start Last Admin Trade Name Freq PRN Reason Stop Dose Admin Acetaminophen 1,000 mg 03/20/19 16:56 03/21/19 00:04 Tylenol PO 1,000 mg Q6H PRN Administration PAIN Famotidine 20 mg 03/20/19 09:00 03/23/19 09:01 Pepcid IVP 20 mg BID DESTINY Administration Fentanyl 1 patch 03/20/19 15:00 03/23/19 15:15 Duragesic TOP 1 patch Q72H DESTINY Administration Heparin Sodium (Beef Lung) 30 - 50 unit 03/21/19 11:59 03/21/19 12:13 IVP 50 unit PRN PRN Administration Port Protocol (<24 hours) Hydralazine HCl 10 mg 03/20/19 03:10 03/22/19 18:47 Apresoline Inj IVP 10 mg Q4HR PRN Administration SBP>160 Lactated Ringer's 1,000 mls @ 75 mls/hr 03/20/19 04:00 03/23/19 09:00 Lr IV 75 mls/hr .[id number] DESTINY Administration Multivitamins 10 ml/ Chromium/ 2,047.55 mls @ 175 mls/hr 03/20/19 19:00 03/23/19 10:33 Copper/Manganese/Seleni/Zn 1 IV 03/23/19 18:59 Infused ml/ Potassium Chloride 40 meq/ Q24H DESTINY Infusion Insulin Human Regular 55 unit / Calcium Gluconate 1,000 mg/ Magnesium Sulfate 3 gm/ Amino Protocol Ac/Electrol/Dextrose/Calcium Calcium Gluconate 1,000 mg/ 60 mls @ 60 mls/hr 03/21/19 09:00 03/23/19 10:32 Sodium Chloride IV Infused DAILY DESTINY Infusion Insulin Aspart 1 - 9 unit 03/20/19 08:00 03/23/19 12:59 Novolog SUBQ Not Given 0800,1200,1700,2100 [facility] Protocol Metoprolol Succinate 100 mg 03/20/19 17:00 03/22/19 17:09 Toprol Xl PO 100 mg DAILY@1700 DESTINY Administration Polyethylene Glycol 17 gm 03/20/19 09:00 03/23/19 08:44 Miralax PO Not Given DAILY [facility] Prochlorperazine Maleate 25 mg 03/20/19 17:00 03/23/19 06:04 Compazine Supp GA 25 mg Q12H DESTINY Administration Scopolamine HBr 1 patch 03/20/19 15:00 03/23/19 15:16 Transderm-Scop TOP 1 patch Q72H DESTINY Administration Sodium Chloride 10 ml 03/20/19 03:05 03/23/19 06:04 Normal Saline Flush 0.9% IVP 10 ml PRN PRN Administration NEEDED PER PROVIDER ORDERS Sodium Chloride 10 ml 03/20/19 09:00 03/23/19 09:01 Normal Saline Flush 0.9% IVP 10 ml 0100,0900,1700 DESTINY Administration - Lab Result Fish Bone Diagrams: 03/22/19 04:17 03/23/19 04:55 Subjective - Subjective Patient Reports: Feeling Better Objective Vital Signs: Vital Signs - 24 hr 03/22/19 03/22/19 03/22/19 16:54 18:35 18:47 Temperature 36.7 C Heart Rate [ 102 H 88 Brachial] Respiratory 18 Rate Blood Pressure 172/95 H Blood Pressure 193/114 H 164/99 H [Left Brachial artery] Blood Pressure [Right Brachial artery] O2 Saturation 99 03/22/19 03/23/19 03/23/19 19:17 00:00 07:39 Temperature 36.5 C 36.7 C Heart Rate [ 86 90 Brachial] Respiratory 18 18 Rate Blood Pressure 153/86 H Blood Pressure 173/83 H [Left Brachial artery] Blood Pressure 151/78 H [Right Brachial artery] O2 Saturation 97 99 Oxygen O2 Source Room air I&O (Last 24 Hrs): Intake and Output Totals x24h 03/21/19 03/22/19 03/23/19 23:59 23:59 23:59 Intake Total 6881.300 5321.816 4171.617 Output Total 4800 1150 1600 Balance 2081.300 4171.816 2571.617 General: Alert, Oriented x3 HEENT: Mucous membr. moist/pink Neck: Supple Neuro: Non Focal Cardiovascular: Regular rate, No murmurs Respiratory: No respiratory distress Abdomen: Soft Extremities: No edema - Results Results: Laboratory Results WBC 3.7 x10^3/uL (4.8-10.8) L 03/22/19 04:17 RBC 2.61 10^6/uL (4.20-5.40) L 03/22/19 04:17 Hgb 8.3 g/dL (12.0-16.0) L 03/22/19 04:17 Hct 24.2 % (37.0-47.0) L 03/22/19 04:17 MCV 92.6 fL (81.0-99.0) 03/22/19 04:17 MCH 31.6 pg (27.0-31.0) H 03/22/19 04:17 MCHC 34.1 g/dL (32.0-36.0) 03/22/19 04:17 RDW 17.6 % (12.0-15.0) H 03/22/19 04:17 Plt Count 52 10^3/uL (130-450) L 03/22/19 04:17 MPV 8.2 fL (7.9-10.8) 03/22/19 04:17 Neut # (Auto) 2.1 10^3/uL (1.5-6.6) 03/22/19 04:17 Lymph # (Auto) 0.8 10^3/uL (1.5-3.5) L 03/22/19 04:17 [place] # (Auto) 0.7 10^3/uL (0.0-1.0) 03/22/19 04:17 Eos # (Auto) 0.0 10^3/uL (0.0-0.7) 03/22/19 04:17 Baso # (Auto) 0.1 10^3/uL (0.0-0.1) 03/22/19 04:17 Absolute Nucleated RBC 0.00 x10^3/uL 03/22/19 04:17 Nucleated RBC % 0.1 /100WBC 03/22/19 04:17 PT 15.4 secs (9.9-12.6) H 03/21/19 04:50 INR 1.4 (0.8-1.2) H 03/21/19 04:50 Sodium 133 mmol/L (135-145) L 03/23/19 04:55 Potassium 3.9 mmol/L (3.5-5.0) 03/23/19 04:55 Chloride 98 mmol/L (101-111) L 03/23/19 04:55 Carbon Dioxide 24 mmol/L (21-32) 03/23/19 04:55 Anion Gap 11.0 (6-13) 03/23/19 04:55 BUN 20 mg/dL (6-20) 03/23/19 04:55 Creatinine 0.7 mg/dL (0.4-1.0) 03/23/19 04:55 Estimated GFR (MDRD) 86 (>89) L 03/23/19 04:55 Glucose 130 mg/dL (70-100) H 03/23/19 04:55 POC Whole Bld Glucose 123 mg/dL (70 - 100) H 03/23/19 11:34 Glycated Hemoglobin 6.1 % (4.6-6.2) 03/20/19 05:20 Estim Average Glucose 128 (70-100) H 03/20/19 05:20 Lactic Acid 1.4 mmol/L (0.5-2.2) 03/20/19 00:30 Calcium 9.2 mg/dL (8.5-10.3) 03/23/19 04:55 Phosphorus 4.3 mg/dL (2.5-4.6) 03/23/19 04:55 Magnesium 1.8 mg/dL (1.7-2.8) 03/23/19 04:55 Total Bilirubin 0.9 mg/dL (0.2-1.0) 03/23/19 04:55 AST 33 IU/L (10-42) 03/23/19 04:55 ALT 47 IU/L (10-60) 03/23/19 04:55 Alkaline Phosphatase 94 IU/L (42-121) 03/23/19 04:55 Troponin I < 0.04 ng/mL (<0.49) 03/20/19 00:30 Total Protein 6.4 g/dL (6.7-8.2) L 03/23/19 04:55 Albumin 2.6 g/dL (3.2-5.5) L 03/23/19 04:55 Globulin 3.8 g/dL (2.1-4.2) 03/23/19 04:55 Albumin/Globulin Ratio 0.7 (1.0-2.2) L 03/23/19 04:55 Prealbumin 11 mg/dL (18-45) L 03/23/19 04:55 Triglycerides 228 mg/dL (-149) H 03/23/19 04:55 Lipase 32 U/L (22-51) 03/20/19 00:30 TSH 0.85 uIU/mL (0.34-5.60) 03/20/19 00:30 Urine Color YELLOW 03/20/19 00:00 Urine Clarity CLEAR (CLEAR) 03/20/19 00:00 Urine pH 6.0 PH (5.0-7.5) 03/20/19 00:00 Ur Specific [place] <=1.005 (1.002-1.030) 03/20/19 00:00 Urine Protein NEGATIVE mg/dL (NEGATIVE) 03/20/19 00:00 Urine Glucose (UA) 250 mg/dL (NEGATIVE) H 03/20/19 00:00 Urine Ketones NEGATIVE mg/dL (NEGATIVE) 03/20/19 00:00 Urine Occult Blood NEGATIVE (NEGATIVE) 03/20/19 00:00 Urine Nitrite NEGATIVE (NEGATIVE) 03/20/19 00:00 Urine Bilirubin NEGATIVE (NEGATIVE) 03/20/19 00:00 Urine Urobilinogen 1 (NORMAL) E.U./dL (NORMAL) 03/20/19 00:00 Ur Leukocyte Esterase NEGATIVE (NEGATIVE) 03/20/19 00:00 Ur Microscopic Review NOT INDICATED 03/20/19 00:00 Urine Culture Comments NOT INDICATED 03/20/19 00:00 Last Dose Date UNK 03/22/19 04:17 Last Dose Time UNK 03/22/19 04:17 Vancomycin Trough 23.9 ug/mL (10.0-20.0) H 03/22/19 04:17 Influenza A (Rapid) Negative (Negative) 03/20/19 06:30 Influenza B (Rapid) Negative (Negative) 03/20/19 06:30 - Procedures Procedures: Procedures INSERTION OF VAD INTO CHEST SUBCU/FASCIA, PERC APPROACH (06/02/17) Sepsis Event Note (H) - Evaluation Current Stage of Sepsis: Ruled out Possible source of Sepsis: positive: Implantable device - Sepsis Criteria Sepsis Criteria: Recorded Temperature greater than 38.3C or Less than 36C, Recorded Heart Rate greater than 90 bpm, Hematologic: platelets < 100,000; INR > 1.5, or a PTT>60 seconds
[2019-03-23] MEDS: METOPROLOL SUCCINATE 50 MG TABLET PO SCH (16:57)
[2019-03-23] MEDS ORDERED: LIDOCAINE JELLY 2% 5 ML TUBE TOP ONE (18:53)
[2019-03-23] MEDS: FAT EMULSION 20% 250 ML IV SCH (19:56)
[2019-03-23] MEDS: TPN (CLINIMIX E 5/15) 2,000 ML with MULTIVITAMIN 10 ML, TRACE ELEMENTS V CONC 1 ML, POT... IV SCH ×8 (19:57)
[2019-03-24] MEDS: PROCHLORPERAZINE 25 MG SUPP PR SCH ×2 (06:58→16:45)
[2019-03-24] MEDS: CALCIUM GLUCONATE 1,000 MG in SODIUM CHLORIDE 0.9% 50 ML IV SCH (07:55)
[2019-03-24] MEDS: LACTATED RINGERS 1,000 ML IV SCH ×2 (08:07→08:08)
[2019-03-24] MEDS: INSULIN ASPART 300 UNIT/3 ML PEN SUBQ SCH ×4 (08:08→21:16)
[2019-03-24] MEDS ORDERED: SODIUM CHLORIDE FLUSH 0.9% 10 ML SYRINGE ONE (08:44)
[2019-03-24] MEDS ORDERED: LIDOCAINE JELLY 2% 5 ML TUBE TOP ONE (09:00)
[2019-03-24] MEDS: VANCOMYCIN INJ 1 GM, VANCOMYCIN INJ 250 MG in SODIUM CHLORIDE 0.9% 250 ML IV SCH ×2 (09:39→21:41)
[2019-03-24] MEDS: POLYETHYLENE GLYCOL 3350 17 GM PACKET PO SCH (09:42)
[2019-03-24] MEDS: FAMOTIDINE 20 MG/2 ML VIAL IVP SCH ×2 (09:43→21:15)
[2019-03-24] MEDS ORDERED: ALTEPLASE 2 MG VIAL IC ONE (10:15)
--- NOTE | 2019-03-24 11:52 | Discharge Plan ---
Discharge Plan Disposition: Home, Self Care Condition: Stable Prescriptions: cefTRIAXone [Rocephin 1 gram] 1 gm IV DAILY #13 vial Diet: Soft Activity Restrictions: Activity as Tolerated Shower Restrictions: No Driving Restrictions: No Instruction Topics: Dehydration Rehydration Ch, ED Vomiting Diarrhea Nonspecific Ad Additional Instructions or Follow Up instructions: You were admitted with a fever and the source was felt to be an infection of the blood stream, related to your central port. After discussion with Infectious Disease specialists at , who advised a plan based on your blood culture results, you are being prescribed to get 2 weeks of iv antibiotics with Ceftriaxone and several more days of iv Vancomycin. Resume all your other pre-hospital medications and home infusions of tpn. Have your follow-up and further management with Dr Alvarado at [facility]. No Smoking: If you smoke, Please STOP! Call for help. Follow-up with: Lexi Garcia DO [Primary Care Provider] -
--- NOTE | 2019-03-24 15:59 | PROVIDER PROGRESS NOTE ---
Assessment/Plan - Problem List (1) Staphylococcus epidermidis bacteremia Assessment/Plan: I spoke to Dr Yuliana Cameron of ID at and reviewed all the culture results. Will plan to leave in the [facility] on iv Vanco (1.75 mg daily) for a 2 week course. THat was communicated to [facility] today. Since the culture from 03/20 also showed a gram pos bacillus, she will also need a second antibiotic (see below). (2) Gram-positive bacilli in chains present Assessment/Plan: The patient just had a PEG tube removed 1 week ago, which had been in for several months, due to SBO. In the discussion with Yuliana Cameron MD, at cell phone number [phone]. of ID at today, I reviewed this finding as well, and that it has not been ID'd yet; it was sent to [facility] and our Microbiology Dept called [facility] today and was advised that the ID may take 3-14 days more. Since the culture from 03/20 also showed this gram pos bacillus, the patient will also need a second antibiotic: Ceftriaxone 1 gm iv daily was recommended, as an empiric antibiotic to cover potential Lactobacillus, or Bacillus species (per Dr Camreon). Will start iv Ceftriaxone today. I will order on a paper prescription, and get that authorized for planning outpatient treatment, for a 14 day total course, starting today 03/24/19, therefore ending on 04/08/19. Probable DCh tomorrow. (3) Aortic stenosis, mild Assessment/Plan: No vegetations were suspected by Echo done here 03/20. This was also reviewed with the ID specialist today. (4) Pancytopenia due to chemotherapy Assessment/Plan: Immunocompromised state, reviewed with ID sr. consultant. (5) Ovarian cancer Qualifiers: Qualified Code(s): C56.9 - Malignant neoplasm of unspecified ovary Assessment/Plan: I will discuss the total plan with her oncologist, Dr Alvarado, , who will be supervising the tpn, and iv antibiotics. (6) Hyponatremia Assessment/Plan: Possible SIADH vs from tpn and poor po diet. Follow BMP daily while here. (7) IDDM (insulin dependent diabetes mellitus) Assessment/Plan: On a carb-controlled diet, Insulin due to tpn (8) Protein calorie malnutrition Assessment/Plan: Tpn is planned to be continued at her pre-hospital infusion order (I discussed that with her Social IQ (Social Influence Quotient) today). (9) SIRS (systemic inflammatory response syndrome) Assessment/Plan: Resolved. - Current Meds Current Meds: Current Medications Generic Name Dose Route Start Last Admin Trade Name Freq PRN Reason Stop Dose Admin Acetaminophen 1,000 mg 03/20/19 16:56 03/21/19 00:04 Tylenol PO 1,000 mg Q6H PRN Administration PAIN Famotidine 20 mg 03/20/19 09:00 03/24/19 09:43 Pepcid IVP 20 mg BID DESTINY Administration Fentanyl 1 patch 03/20/19 15:00 03/23/19 15:15 Duragesic TOP 1 patch Q72H DESTINY Administration Heparin Sodium (Beef Lung) 30 - 50 unit 03/21/19 11:59 03/21/19 12:13 IVP 50 unit PRN PRN Administration Port Protocol (<24 hours) Hydralazine HCl 10 mg 03/20/19 03:10 03/22/19 18:47 Apresoline Inj IVP 10 mg Q4HR PRN Administration SBP>160 Calcium Gluconate 1,000 mg/ 60 mls @ 60 mls/hr 03/21/19 09:00 03/24/19 09:00 Sodium Chloride IV Infused DAILY DESTINY Infusion Multivitamins 10 ml/ Chromium/ 2,052.55 mls @ 175.427 mls/hr 03/23/19 19:00 03/24/19 09:00 Copper/Manganese/Seleni/Zn 1 IV Infused ml/ Potassium Chloride 40 meq/ Q24H DESTINY Infusion Sodium Chloride 20 meq/ Insulin Human Regular 55 unit/ Calcium Gluconate 1,000 mg/ Protocol Magnesium Sulfate 3 gm/ Amino Ac/Electrol/Dextrose/Calcium Fat Emulsion Intravenous 250 mls @ 21 mls/hr 03/23/19 19:00 03/24/19 09:00 Intralipid 20% IV Infused Q24H DESTINY Infusion Vancomycin HCl 1 gm/ 250 mls @ 166.667 mls/hr 03/23/19 22:00 03/24/19 11:20 Vancomycin HCl 250 mg/ Sodium IV Infused Chloride BID@1000,2200 DESTINY Infusion Insulin Aspart 1 - 9 unit 03/20/19 08:00 03/24/19 11:57 Novolog SUBQ 1 unit 0800,1200,1700,2100 DESTINY Administration Protocol Metoprolol Succinate 100 mg 03/20/19 17:00 03/23/19 16:57 Toprol Xl PO 100 mg DAILY@1700 DESTINY Administration Polyethylene Glycol 17 gm 03/20/19 09:00 03/24/19 09:42 Miralax PO Not Given DAILY DESTINY Prochlorperazine Maleate 25 mg 03/20/19 17:00 03/24/19 06:58 Compazine Supp NV Not Given Q12H DESTINY Scopolamine HBr 1 patch 03/20/19 15:00 03/23/19 15:16 Transderm-Scop TOP 1 patch Q72H DESTINY Administration Sodium Chloride 10 ml 03/20/19 03:05 03/23/19 06:04 Normal Saline Flush 0.9% IVP 10 ml PRN PRN Administration NEEDED PER PROVIDER ORDERS Sodium Chloride 10 ml 03/20/19 09:00 03/23/19 23:51 Normal Saline Flush 0.9% IVP 10 ml 0100,0900,1700 DESTINY Administration - Lab Result Fish Bone Diagrams: 03/22/19 04:17 03/23/19 04:55 - Additional Planning My Orders: My Active Orders 03/23/19 19:00 Multivitamin [Infuvite] 10 ml Trace Elements V Conc [Multitrace-5 Conc Vial] 1 ml Potassium Chloride Inj 40 meq Sodium Chloride 23.4% 20 meq Insulin Regular Human [NovoLIN R] 55 unit Calcium Gluconate 1,000 mg Magnesium Sulfate 3 gm TPN (Clinimix E 5/15) [Clinimix E 5%-15% Solution] 2,000 ml IV Q24H 03/24/19 16:00 cefTRIAXone [Rocephin] 1 gm Sodium Chloride 0.9% Minibag [Normal Saline 0.9% Minibag] 100 ml IV DAILY 03/24/19 Dinner Dysphagia Puree Diet [DIET] 03/24/19 Lunch DIET [Soft (Low Fiber) Diet] [DIET] Subjective - Subjective Patient Reports: Feeling Better, Other (She tried the soft diet, no N/V, abd pain or cramps. She reports being on liquids since Oct, when the tpn was started for nutrition, since she had a PEG tube. The PEG tube was reversed 1 week ago, and she hasn't seen her Oncologist, to have her po diet altered yet.) Objective Vital Signs: Vital Signs - 24 hr 03/23/19 03/24/19 03/24/19 16:00 00:00 07:41 Temperature 36.8 C 36.6 C 36.7 C Heart Rate [ 85 87 87 Brachial] Respiratory 18 20 18 Rate Blood Pressure 160/85 H 148/76 H 164/94 H [Left Brachial artery] O2 Saturation 99 97 98 Oxygen O2 Source Room air I&O (Last 24 Hrs): Intake and Output Totals x24h 03/22/19 03/23/19 03/24/19 23:59 23:59 23:59 Intake Total 5321.816 5571.617 3865.05 Output Total 1150 1600 Balance 4171.816 3971.617 3865.05 - Results Results: Laboratory Results WBC 3.7 x10^3/uL (4.8-10.8) L 03/22/19 04:17 RBC 2.61 10^6/uL (4.20-5.40) L 03/22/19 04:17 Hgb 8.3 g/dL (12.0-16.0) L 03/22/19 04:17 Hct 24.2 % (37.0-47.0) L 03/22/19 04:17 MCV 92.6 fL (81.0-99.0) 03/22/19 04:17 MCH 31.6 pg (27.0-31.0) H 03/22/19 04:17 MCHC 34.1 g/dL (32.0-36.0) 03/22/19 04:17 RDW 17.6 % (12.0-15.0) H 03/22/19 04:17 Plt Count 52 10^3/uL (130-450) L 03/22/19 04:17 MPV 8.2 fL (7.9-10.8) 03/22/19 04:17 Neut # (Auto) 2.1 10^3/uL (1.5-6.6) 03/22/19 04:17 Lymph # (Auto) 0.8 10^3/uL (1.5-3.5) L 03/22/19 04:17 [place] # (Auto) 0.7 10^3/uL (0.0-1.0) 03/22/19 04:17 Eos # (Auto) 0.0 10^3/uL (0.0-0.7) 03/22/19 04:17 Baso # (Auto) 0.1 10^3/uL (0.0-0.1) 03/22/19 04:17 Absolute Nucleated RBC 0.00 x10^3/uL 03/22/19 04:17 Nucleated RBC % 0.1 /100WBC 03/22/19 04:17 PT 15.4 secs (9.9-12.6) H 03/21/19 04:50 INR 1.4 (0.8-1.2) H 03/21/19 04:50 Sodium 133 mmol/L (135-145) L 03/23/19 04:55 Potassium 3.9 mmol/L (3.5-5.0) 03/23/19 04:55 Chloride 98 mmol/L (101-111) L 03/23/19 04:55 Carbon Dioxide 24 mmol/L (21-32) 03/23/19 04:55 Anion Gap 11.0 (6-13) 03/23/19 04:55 BUN 20 mg/dL (6-20) 03/23/19 04:55 Creatinine 0.7 mg/dL (0.4-1.0) 03/23/19 04:55 Estimated GFR (MDRD) 86 (>89) L 03/23/19 04:55 Glucose 130 mg/dL (70-100) H 03/23/19 04:55 POC Whole Bld Glucose 159 mg/dL (70 - 100) H 03/24/19 11:48 Glycated Hemoglobin 6.1 % (4.6-6.2) 03/20/19 05:20 Estim Average Glucose 128 (70-100) H 03/20/19 05:20 Lactic Acid 1.4 mmol/L (0.5-2.2) 03/20/19 00:30 Calcium 9.2 mg/dL (8.5-10.3) 03/23/19 04:55 Phosphorus 4.3 mg/dL (2.5-4.6) 03/23/19 04:55 Magnesium 1.8 mg/dL (1.7-2.8) 03/23/19 04:55 Total Bilirubin 0.9 mg/dL (0.2-1.0) 03/23/19 04:55 AST 33 IU/L (10-42) 03/23/19 04:55 ALT 47 IU/L (10-60) 03/23/19 04:55 Alkaline Phosphatase 94 IU/L (42-121) 03/23/19 04:55 Troponin I < 0.04 ng/mL (<0.49) 03/20/19 00:30 Total Protein 6.4 g/dL (6.7-8.2) L 03/23/19 04:55 Albumin 2.6 g/dL (3.2-5.5) L 03/23/19 04:55 Globulin 3.8 g/dL (2.1-4.2) 03/23/19 04:55 Albumin/Globulin Ratio 0.7 (1.0-2.2) L 03/23/19 04:55 Prealbumin 11 mg/dL (18-45) L 03/23/19 04:55 Triglycerides 228 mg/dL (-149) H 03/23/19 04:55 Lipase 32 U/L (22-51) 03/20/19 00:30 TSH 0.85 uIU/mL (0.34-5.60) 03/20/19 00:30 Urine Color YELLOW 03/20/19 00:00 Urine Clarity CLEAR (CLEAR) 03/20/19 00:00 Urine pH 6.0 PH (5.0-7.5) 03/20/19 00:00 Ur Specific [place] <=1.005 (1.002-1.030) 03/20/19 00:00 Urine Protein NEGATIVE mg/dL (NEGATIVE) 03/20/19 00:00 Urine Glucose (UA) 250 mg/dL (NEGATIVE) H 03/20/19 00:00 Urine Ketones NEGATIVE mg/dL (NEGATIVE) 03/20/19 00:00 Urine Occult Blood NEGATIVE (NEGATIVE) 03/20/19 00:00 Urine Nitrite NEGATIVE (NEGATIVE) 03/20/19 00:00 Urine Bilirubin NEGATIVE (NEGATIVE) 03/20/19 00:00 Urine Urobilinogen 1 (NORMAL) E.U./dL (NORMAL) 03/20/19 00:00 Ur Leukocyte Esterase NEGATIVE (NEGATIVE) 03/20/19 00:00 Ur Microscopic Review NOT INDICATED 03/20/19 00:00 Urine Culture Comments NOT INDICATED 03/20/19 00:00 Last Dose Date UNK 03/22/19 04:17 Last Dose Time UNK 03/22/19 04:17 Vancomycin Trough 23.9 ug/mL (10.0-20.0) H 03/22/19 04:17 Influenza A (Rapid) Negative (Negative) 03/20/19 06:30 Influenza B (Rapid) Negative (Negative) 03/20/19 06:30 - Procedures Procedures: Procedures INSERTION OF VAD INTO CHEST SUBCU/FASCIA, PERC APPROACH (06/02/17) Sepsis Event Note (H) - Evaluation Current Stage of Sepsis: Ruled out Possible source of Sepsis: positive: Implantable device - Sepsis Criteria Sepsis Criteria: Recorded Temperature greater than 38.3C or Less than 36C, Recorded Heart Rate greater than 90 bpm, Hematologic: platelets < 100,000; INR > 1.5, or a PTT>60 seconds
[2019-03-24] MEDS: cefTRIAXone 1 GM in SODIUM CHLORIDE 0.9% MINIBAG 100 ML IV SCH (16:36)
[2019-03-24] MEDS: SODIUM CHLORIDE FLUSH 0.9% 10 ML SYRINGE IVP SCH ×3 (16:36→23:19)
[2019-03-24] MEDS: METOPROLOL SUCCINATE 50 MG TABLET PO SCH (16:44)
[2019-03-24] MEDS: SODIUM CHLORIDE FLUSH 0.9% 10 ML SYRINGE IVP PRN ×4 (17:21→21:42)
[2019-03-24] MEDS: TPN (CLINIMIX E 5/15) 2,000 ML with MULTIVITAMIN 10 ML, TRACE ELEMENTS V CONC 1 ML, POT... IV SCH ×8 (19:13)
[2019-03-24] MEDS: FAT EMULSION 20% 250 ML IV SCH (19:13)
[2019-03-25 05:14] LABS: ALBUMIN 2.7 g/dL (3.2-5.5); ALBUMIN/GLOBULIN RATIO 0.8 (1.0-2.2); BILIRUBIN,TOTAL 0.6 mg/dL (0.2-1.0); CALCIUM 9.1 mg/dL (8.5-10.3); CREATININE 0.7 mg/dL (0.4-1.0); MAGNESIUM 2.1 mg/dL (1.7-2.8); PHOSPHORUS 3.6 mg/dL (2.5-4.6); TOTAL PROTEIN 6.3 g/dL (6.7-8.2)
[2019-03-25 09:12] VITALS: BP 147/80
[2019-03-25] MEDS ORDERED: SODIUM CHLORIDE 0.9% 500 ML IV ONE (09:21)
[2019-03-25] MEDS: cefTRIAXone 1 GM in SODIUM CHLORIDE 0.9% MINIBAG 100 ML IV SCH (09:25)
[2019-03-25] MEDS: POLYETHYLENE GLYCOL 3350 17 GM PACKET PO SCH (09:32)
[2019-03-25] MEDS: SODIUM CHLORIDE FLUSH 0.9% 10 ML SYRINGE IVP SCH (09:32)
[2019-03-25] MEDS: FAMOTIDINE 20 MG/2 ML VIAL IVP SCH (09:32)
[2019-03-25] MEDS: INSULIN ASPART 300 UNIT/3 ML PEN SUBQ SCH ×2 (09:32→12:44)
[2019-03-25] MEDS: VANCOMYCIN INJ 1 GM, VANCOMYCIN INJ 250 MG in SODIUM CHLORIDE 0.9% 250 ML IV SCH (10:00)
[2019-03-25] MEDS ORDERED: CALCIUM GLUCONATE 1,000 MG in SODIUM CHLORIDE 0.9% 50 ML IV SCH ×4 (11:00)
--- NOTE | 2019-03-30 17:21 | DISCHARGE SUMMARY ---
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 She has a history of a PEG tube after she developed bowel obstruction secondary to adhesions. She has a history of insulin-requiring diabetes, multiple drug-resistant UTIs, ascites, receives TPN. Patient, herself, removed her PEG tube on 03/17/2019 and has not yet seen her oncologist after this. She did start eating clear liquids on her own. The patient presented with complaints of fevers to a max of 102.5 and generalized weakness. In the emergency room, she was tachycardic at 111. She was admitted for management of a presumed infection. HOSPITAL COURSE AND DISCHARGE DIAGNOSES 1. Sepsis. The patient had a fever of 38.2 centigrade, heart rate that was tachycardic at 121; white blood count was lower than 10,000 at 3.7 thousand; platelet count that was lower than 100,000 it was 46,000; and she did grow positive blood cultures from her March 20 admission blood culture, drawn from the line site. There was a heart murmur that was evaluated for endocarditis (see below), and she had redness of some toes but no evidence of splinter hemorrhages or palmar erythema. With treatment of her infection, her vital signs improved. 2. Methicillin-resistant Staphylococcus epidermidis infection (bacteremia). The blood culture grew methicillin-resistant Staphylococcus epidermidis. She had been started on cefepime and vancomycin, which was changed to vancomycin and Unasyn. The hospitalist reached out to the [facility] infectious disease department several times, and her case was reviewed with Dr. Yuliana Cameron ([phone]). The recommendation was to perform blood cultures daily for 2 days and if these were negative on treatment, then her port could be kept in place. This was the case and we were able to salvage the port. She was sent home with several more days of infusions to complete a 14-day course to treat the Staphylococcus epidermidis. 3. Gram-positive bacilli in chains. In discussion with infectious disease specialist, Dr. Yuliana Cameron of , I reviewed that the patient also had a positive culture from the day of admission showing gram-positive bacilli, therefore she needed a second antibiotic empirically to cover potential Lactobacillus or bacillus species. She was started on IV ceftriaxone and required this second antibiotic for outpatient treatment for a 14-day course. 4. Aortic stenosis, mild. Because of an audible murmur and bacteremia, she underwent an echo, which showed preserved LV ejection fraction, mild aortic stenosis, no signs to suspect endocarditis valvular endocarditis. 5. Pancytopenia due to chemotherapy. The patient's blood test showed white counts ranging between 4.9 and 3.7. Her hemoglobin ran 9.3 down to 8.3. Platelet count was 46-52. There were no signs of bleeding while she was here. 6. Ovarian cancer. Her outpatient management TPN and antibiotic are to be managed by her oncologist at his request. I reached out to Dr. Alvarado ([phone]) but did not receive a call back. 7. Hyponatremia. This was managed with dietary and fluid adjustments. 8. Insulin-dependent diabetes. The patient was kept on her TPN containing insulin while here, and she was on a carb-controlled diet and sliding scale insulin coverage. 9. Protein-calorie malnutrition. Patient had been started on TPN prior to this admission, the PEG tube feedings stopped when the tube had come out on 03/17/2019. She was kept on a clear liquid and only full liquid or soft diet as tolerated while here. LABORATORIES AND IMAGING: Reviewed and summarized above. ALLERGIES 1. PACLITAXEL. 2. CEFDINIR. 3. CLINDAMYCIN. 4. LEVOFLOXACIN. 5. BACTRIM. 6. MELOXICAM. 7. PENICILLIN (this only caused nausea not a rash). 8. METFORMIN (this caused severe abdominal pain not a rash). MEDICATIONS AT THE TIME OF DISCHARGE 1. Tylenol p.r.n. 2. Vitamin D3 at 5000 units daily. 3. Clobetasol emollient cream p.r.n. 4. Cyclobenzaprine 5-10 mg q.6 hours p.r.n. 5. Fentanyl patch topically every 3 days. 6. Gabapentin 600 mg t.i.d. p.r.n. 7. Motrin 600 mg q.6 hours p.r.n. 8. Humalog insulin 2-4 units subcutaneous. 9. Lidocaine topical cream p.r.n. 10. Lidocaine topical patch daily around the PEG tube site. 11. Lorazepam 0.5 mg q.4 hours p.r.n. anxiety. 12. Toprol-XL 100 mg every night. 13. Morphine IR 15 mg p.o. q.4 hours p.r.n. pain. 14. Olanzapine 5 mg p.o. daily. 15. Omeprazole 20 mg daily. 16. Zofran sublingual q.8 hours p.r.n. 17. Pravachol 40 mg every night. 18. Compazine suppository p.r.n. 19. Scopolamine patch topically every 3 days. 20. Ceftriaxone 1 gram IV daily x13 more days. 21. Vancomycin daily, which would finish on 04/04/2019 (14-day total course). CONDITION AT DISCHARGE: Stable. PHYSICAL EXAMINATION VITAL SIGNS: Blood pressure 147/80, heart rate 85-95 in sinus rhythm, afebrile, room air saturation 100%. HEENT: Unremarkable. NECK: Without JVD or carotid bruit. CHEST: Clear. HEART: Heart sounds normal, very soft murmur. ABDOMEN: Soft, nontender. EXTREMITIES: No clubbing, cyanosis or edema. NEUROLOGIC: Grossly intact. FOLLOWUP: She is advised to see her PCP and oncologist as previously scheduled. CODE STATUS: FULL CODE. Time required to complete this discharge, chart review, prescription orders, dictation: Sixty minutes. cc: DO Jaspreet Castellanos MD TD: 03/30/2019 16:08 ADDENDUM 1. "Systemic inflammatory response syndrome," should state "Sepsis." The patient had a fever of 38.2 centigrade, heart rate that was tachycardic at 121; white blood count that was lower than 10,000 at 3.7 thousand; platelet count that was lower than 100, it was 46,000; and she did grow positive blood cultures from her March 20 date of admission drawn from the line site. REVISED ON 04/08/2019 jll Orig. signed 03/30/2019@1805 Addendum/Correction to #1 TD: 04/08/2019 08:27 HECTORD
== END 2019-03-25 13:45 | disposition home or self-care (01) | DRG 314 ==
LOC: ED 21:34 → MS3 03-20 03:05
PROVIDERS: ADMIT Family Medicine; ATTEND Internal Medicine
PROC: 3E0436Z Introduction of Nutritional Substance into Central Vein, Percutaneous Approach (ICD-10-PCS; principal; 2019-03-20)
DX: T80.211A Bloodstream infection due to central venous catheter, initial encounter (principal); D61.810 Antineoplastic chemotherapy induced pancytopenia; A41.1 Sepsis due to other specified staphylococcus; A41.89 Other specified sepsis; C56.9 Malignant neoplasm of unspecified ovary; E87.1 Hypo-osmolality and hyponatremia; E46 Unspecified protein-calorie malnutrition; Z16.11 Resistance to penicillins; I35.0 Nonrheumatic aortic (valve) stenosis; T45.1X5A Adverse effect of antineoplastic and immunosuppressive drugs, initial encounter; G89.3 Neoplasm related pain (acute) (chronic); I10 Essential (primary) hypertension; E11.9 Type 2 diabetes mellitus without complications; K21.9 Gastro-esophageal reflux disease without esophagitis; M19.90 Unspecified osteoarthritis, unspecified site; Z68.34 Body mass index [BMI] 34.0-34.9, adult; Z79.4 Long term (current) use of insulin; Z79.899 Other long term (current) drug therapy; Z90.722 Acquired absence of ovaries, bilateral; Z90.710 Acquired absence of both cervix and uterus; Z90.49 Acquired absence of other specified parts of digestive tract; Z87.440 Personal history of urinary (tract) infections; Z90.79 Acquired absence of other genital organ(s)
CPT/HCPCS: 36415; 71046; 80053; 80202; 81001; 81003; 81599; 83036; 83605; 83690; 83735; 84100; 84134; 84443; 84478; 84484; 85025; 85610; 87040; 87077; 87086; 87181; 87275; 87276; 93306; 96361; 96365; 96375; 99222; 99233; 99284

== ENCOUNTER 2019-04-21 13:02 | Outpatient (CLI) | payer BC ==
[2019-04-21 13:26] LABS: BASOPHILS % (AUTO) 0.7 %; EOSINOPHILS % (AUTO) 0.7 %; LYMPHOCYTES # (AUTO) 1.3 10^3/uL (1.5-3.5); LYMPHOCYTES % (AUTO) 42.5 %; MEAN CORPUSCULAR HGB CONC 35.2 g/dL (32.0-36.0); MEAN CORPUSCULAR VOLUME 99.6 fL (81.0-99.0); MEAN PLATELET VOLUME 7.6 fL (7.9-10.8); MONOCYTES # (AUTO) 0.2 10^3/uL (0.0-1.0); MONOCYTES % (AUTO) 7.3 %; NEUTROPHILS # (AUTO) 1.4 10^3/uL (1.5-6.6); NEUTROPHILS % (AUTO) 48.8 %; PLT - PLATELET COUNT 46 10^3/uL (130-450); RED BLOOD COUNT 2.57 10^6/uL (4.20-5.40); RED CELL DISTRIBUTION WIDTH 18.2 % (12.0-15.0)
[2019-04-21 13:34] LABS: BILIRUBIN,URINE NEGATIVE (NEGATIVE); GLUCOSE, URINE (UA) NEGATIVE (NEGATIVE); KETONES,URINE (UA) NEGATIVE (NEGATIVE); LEUKOCYTE ESTERASE, URINE TRACE (NEGATIVE); NITRITE,URINE NEGATIVE (NEGATIVE); OCCULT BLOOD,URINE NEGATIVE (NEGATIVE); PH,URINE 5.5 PH (5.0-7.5); PROTEIN,URINE NEGATIVE (NEGATIVE); UROBILINOGEN,URINE 2 E.U./dL (NORMAL)
[2019-04-21 13:47] LABS: BACTERIA,URINE None Seen /HPF (None Seen); CLARITY,URINE HAZY (CLEAR); RBC,URINE 0-5 /HPF (0-5); SQUAMOUS EPITHELIAL CELL,UR FEW Squamous (<= Few); YEAST,URINE PRESENT
== END 2019-04-21 13:03 | disposition home or self-care (01) ==
LOC: LAB 13:02
PROVIDERS: ATTEND Specialist
DX: R30.9 Painful micturition, unspecified (principal); R35.0 Frequency of micturition; C56.9 Malignant neoplasm of unspecified ovary; Z51.11 Encounter for antineoplastic chemotherapy
CPT/HCPCS: 36415; 81001; 85025; 87086

== ENCOUNTER 2019-04-23 15:14 | Emergency (ER) | payer BC ==
--- NOTE | 2019-04-23 17:24 | ED Physician Documentation ---
PD HPI ABD PAIN - Stated complaint Stated Complaint: ABD PX - Chief complaint Chief Complaint: Abd Pain - History obtained from History obtained from: Patient - History of Present Illness Timing - onset: Yesterday, How many days ago (2) Timing - duration: Days (2) Timing - details: Gradual onset Quality: Cramping, Aching, Fullness/distended, Pain Location: All over / everywhere Radiation: No: Chest, Lower back Improved by: Laying still. No: Vomiting Worsened by: Eating, Moving, Palpation. No: Breathing Associated symptoms: Nausea, Vomiting (couple of tiimes). No: Fever Similar symptoms before: Diagnosis (bowel obstruction related to tumor encompassing the bowel. Treated with TPN, PEG tube, and chemo. Has improved and is able to eat/stool the past few weeks. PEG tube removed a week ago.) Recently seen: Clinic (chemo) Review of Systems Constitutional: reports: Fatigue. denies: Fever, Chills, Myalgias Nose: denies: Rhinorrhea / runny nose, Congestion Throat: denies: Sore throat Cardiac: denies: Chest pain / pressure, Palpitations Respiratory: denies: Cough GI: reports: Abdominal Pain, Abdominal Swelling, Nausea, Vomiting (only couple of times.). denies: Constipation (still had small BM earlier today), Diarrhea : denies: Dysuria, Frequency Skin: denies: Rash, Lesions Neurologic: reports: Generalized weakness. denies: Focal weakness, Numbness, Altered mental status, Headache Psychiatric: denies: Anxiety Endocrine: denies: Weight loss PD PAST MEDICAL HISTORY - Past Medical History Cardiovascular: Hypertension Respiratory: None Neuro: None Endocrine/Autoimmune: Type 2 diabetes GI: GERD, Other (SBO) INSURANCE ACCOUNT SPECIALIST: Ovarian cancer : None HEENT: None Psych: None Musculoskeletal: Osteoarthritis Derm: None - Past Surgical History Past Surgical History: Yes General: Cholecystectomy /INSURANCE ACCOUNT SPECIALIST: Hysterectomy, Oophrectomy, Other - Present Medications Home Medications: Ambulatory Orders Medication Instructions Recorded Confirmed Cholecalciferol (Vitamin D3) 5,000 unit PO DAILY 04/27/17 03/20/19 [Vitamin D3] Metoprolol Succinate [Toprol Xl] 100 mg PO DAILY PM 04/27/17 03/20/19 Pravastatin [Pravachol] 40 mg PO DAILY PM 04/27/17 03/20/19 Acetaminophen [Tylenol Extra 1,000 mg PO Q6H PRN 03/20/19 03/20/19 Strength] Cyclobenzaprine HCl 5 - 10 mg PO Q6H PRN 03/20/19 03/20/19 Gabapentin [Neurontin] 600 mg PO TID PRN 03/20/19 03/20/19 Ibuprofen [Motrin] 600 mg PO Q6H PRN 03/20/19 03/20/19 LORazepam [Lorazepam] 0.5 mg PO Q4H PRN 03/20/19 03/20/19 Lidocaine 1 patch TOP DAILY 03/20/19 03/20/19 Morphine Ir [Ms Ir] 15 mg PO Q4H PRN 03/20/19 03/20/19 OLANZapine [Olanzapine] 5 mg PO DAILY 03/20/19 03/20/19 Omeprazole 20 mg PO DAILY 03/20/19 03/20/19 Ondansetron [Ondansetron Odt] 8 mg PO Q8H PRN 03/20/19 03/20/19 Prochlorperazine Supp [Compazine 25 mg [place] Q12H PRN 03/20/19 03/20/19 Supp] Scopolamine [Transderm-Scop] 1 patch TOP Q72H 03/20/19 03/20/19 fentaNYL [Fentanyl 50mcg patch] 1 patch TOP Q72H 03/20/19 03/20/19 Clobetasol Propionate/Emoll 1 applic TOP BID PRN 03/24/19 03/24/19 [Clobetasol Emollient 0.05% Crm] Insulin Lispro [Humalog] 2 - 4 unit SUBQ .SLIDINGSCALE 03/24/19 03/24/19 Lidocaine 1 applic TOP PRN PRN 03/24/19 03/24/19 cefTRIAXone [Rocephin 1 gram] 1 gm IV DAILY #13 vial 03/24/19 - Allergies Allergies/Adverse Reactions: Allergies Allergy/AdvReac Type Severity Reaction Status Date / Time paclitaxel [From Taxol] Allergy Severe Anaphylaxis Verified 04/23/19 15:25 cefdinir AdvReac Severe Nausea Verified 04/23/19 15:25 clindamycin AdvReac Severe Nausea Verified 04/23/19 15:25 levofloxacin AdvReac Intermediate Nausea Verified 04/23/19 15:25 sulfamethoxazole AdvReac Intermediate Hallucinati Verified 04/23/19 15:25 [From Bactrim] ons meloxicam AdvReac Mild Nausea Verified 04/23/19 15:25 Penicillins AdvReac Mild Nausea Verified 04/23/19 15:25 metformin AdvReac severe abd Verified 04/23/19 15:25 pain - Social History Does the pt smoke?: No Smoking Status: Never smoker Does the pt drink ETOH?: No Does the pt have substance abuse?: No - Family History Family history: reports: Non contributory - Immunizations Immunizations are current?: Yes - POLST Patient has POLST: No PD ED PE NORMAL - Vitals Vital signs reviewed: Yes - General General: Alert and oriented X 3, Well developed/nourished - HEENT HEENT: Ears normal, Pharynx benign. No: Moist mucous membranes - Neck Neck: Supple, no meningeal sign, No adenopathy - Cardiac Cardiac: RRR (tachycardic), No murmur - Respiratory Respiratory: Clear bilaterally - Abdomen Abdomen: No organomegaly, Other (The abdomen is moderately distended with some general tenderness but more so in the mid to upper abdomen. There is hyperactive and tympanitic bowel sounds. There is resonance to percussion.). No: Normal bowel sounds (increased) - Back Back: No CVA TTP - Derm Derm: Normal color, Warm and dry - Extremities Extremities: No deformity, No tenderness to palpate, Normal ROM s pain, No edema, No calf tenderness / cord - Neuro Neuro: Alert and oriented X 3, No motor deficit, Normal speech Results - Vitals Vitals: Vital Signs - 24 hr 04/23/19 04/23/19 04/23/19 15:23 17:43 18:00 Temperature 36.8 C Heart Rate 113 H 74 97 Respiratory 18 96 H Rate Blood Pressure 170/107 H 140/96 H 157/102 H O2 Saturation 97 18 L 96 04/23/19 04/23/19 04/23/19 18:30 19:02 22:45 Temperature Heart Rate 94 90 85 Respiratory 18 17 18 Rate Blood Pressure 135/82 H 130/75 164/95 H O2 Saturation 93 97 97 Oxygen O2 Source Room air - Labs Labs: Laboratory Tests 04/23/19 04/23/19 04/23/19 17:50 17:50 17:50 WBC 3.5 L RBC 2.97 L Hgb 10.2 L Hct 29.7 L MCV 99.7 H MCH 34.4 H MCHC 34.5 RDW 20.6 H Plt Count 55 L MPV 8.1 Neut # (Auto) 2.4 Lymph # (Auto) 0.7 L [place] # (Auto) 0.3 Eos # (Auto) 0.0 Baso # (Auto) 0.0 Absolute Nucleated RBC 0.00 Nucleated RBC % 0.1 Sodium 137 Potassium 3.4 L Chloride 101 Carbon Dioxide 24 Anion Gap 12.0 BUN 12 Creatinine 0.8 Estimated GFR (MDRD) 74 L Glucose 168 H Lactic Acid Calcium 9.3 Magnesium 1.4 L Total Bilirubin 1.4 H AST 25 ALT 20 Alkaline Phosphatase 88 Total Protein 7.6 Albumin 4.2 Globulin 3.4 Albumin/Globulin Ratio 1.2 Lipase 30 Urine Color Urine Clarity Urine pH Ur Specific [place] Urine Protein Urine Glucose (UA) Urine Ketones Urine Occult Blood Urine Nitrite Urine Bilirubin Urine Urobilinogen Ur Leukocyte Esterase Ur Microscopic Review Urine Culture Comments 04/23/19 04/23/19 17:50 20:25 WBC RBC Hgb Hct MCV MCH MCHC RDW Plt Count MPV Neut # (Auto) Lymph # (Auto) [place] # (Auto) Eos # (Auto) Baso # (Auto) Absolute Nucleated RBC Nucleated RBC % Sodium Potassium Chloride Carbon Dioxide Anion Gap BUN Creatinine Estimated GFR (MDRD) Glucose Lactic Acid 0.8 Calcium Magnesium Total Bilirubin AST ALT Alkaline Phosphatase Total Protein Albumin Globulin Albumin/Globulin Ratio Lipase Urine Color YELLOW Urine Clarity CLEAR Urine pH 6.0 Ur Specific [place] 1.010 Urine Protein TRACE Urine Glucose (UA) NEGATIVE Urine Ketones NEGATIVE Urine Occult Blood NEGATIVE Urine Nitrite NEGATIVE Urine Bilirubin NEGATIVE Urine Urobilinogen 0.2 (NORMAL) Ur Leukocyte Esterase NEGATIVE Ur Microscopic Review NOT INDICATED Urine Culture Comments NOT INDICATED - Rads (name of study) abd/pelvic CT Radiology: Prelim report reviewed (Small bowel obstruction with transition in the lower abdomen. There is comment of previous tumor lesions appearing smaller. No signs of perforation.), EMP read contemporaneously, See rad report PD MEDICAL DECISION MAKING - ED course Complexity details: reviewed results (There is signs of a bowel obstruction. Given her history of cancer and the obstruction previously being from omental m etastatic tumors and requiring chemotherapy and TPN and PEG tube, this seems more complicated than prior [facility] and should your reverted back to her ongoing INSURANCE ACCOUNT SPECIALIST oncologist. I talked with Dr. De La O who is on-call for her INSURANCE ACCOUNT SPECIALIST oncologist and he accepted transfer of the patient readily.), re-evaluated patient (improved symptoms with IV meds/fluids. Still with distended abd. ), considered differential, d/w patient, d/w independent crop consultant (Dr. De La O, motivational speaker for INSURANCE ACCOUNT SPECIALIST/Onc, who accepted transfer of the patient. ) Departure - Departure Disposition: 02 Transfer Acute Care Hosp Clinical Impression: Small bowel obstruction due to adhesions Ovarian cancer Qualifiers: Laterality: unspecified laterality Qualified Code(s): C56.9 - Malignant neoplasm of unspecified ovary Condition: Stable Record reviewed to determine appropriate education?: Yes Discharge Date/Time: 04/23/19 23:01
[2019-04-23] MEDS ORDERED: ONDANSETRON 4 MG/2 ML VIAL IVP STA (17:46)
[2019-04-23] MEDS ORDERED: SODIUM CHLORIDE 0.9% 1,000 ML IV ONE ×2 (17:46→20:56)
[2019-04-23] MEDS ORDERED: FAMOTIDINE 20 MG/2 ML VIAL IVP STA (17:47)
[2019-04-23] MEDS ORDERED: HYDROmorphone 2 MG/ML VIAL IVP STA (17:47)
[2019-04-23] MEDS ORDERED: IOVERSOL 320 100 ML VIAL IVP ONE ×2 (17:58→18:55)
[2019-04-23 18:20] LABS: BASOPHILS % (AUTO) 0.6 %; EOSINOPHILS % (AUTO) 0.2 %; HGB - HEMOGLOBIN 10.2 g/dL (12.0-16.0); LYMPHOCYTES # (AUTO) 0.7 10^3/uL (1.5-3.5); LYMPHOCYTES % (AUTO) 20.3 %; MEAN CORPUSCULAR HEMOGLOBIN 34.4 pg (27.0-31.0); MEAN CORPUSCULAR HGB CONC 34.5 g/dL (32.0-36.0); MEAN CORPUSCULAR VOLUME 99.7 fL (81.0-99.0); MEAN PLATELET VOLUME 8.1 fL (7.9-10.8); MONOCYTES # (AUTO) 0.3 10^3/uL (0.0-1.0); MONOCYTES % (AUTO) 8.7 %; NEUTROPHILS # (AUTO) 2.4 10^3/uL (1.5-6.6); NEUTROPHILS % (AUTO) 70.2 %; PLT - PLATELET COUNT 55 10^3/uL (130-450); RED BLOOD COUNT 2.97 10^6/uL (4.20-5.40); RED CELL DISTRIBUTION WIDTH 20.6 % (12.0-15.0); WHITE BLOOD COUNT 3.5 x10^3/uL (4.8-10.8)
[2019-04-23 18:28] LABS: ALBUMIN 4.2 g/dL (3.2-5.5); ALBUMIN/GLOBULIN RATIO 1.2 (1.0-2.2); BILIRUBIN,TOTAL 1.4 mg/dL (0.2-1.0); CALCIUM 9.3 mg/dL (8.5-10.3); CREATININE 0.8 mg/dL (0.4-1.0); TOTAL PROTEIN 7.6 g/dL (6.7-8.2)
--- NOTE | 2019-04-23 19:14 | CT Report ---
Reason: abd pain and vomiting; possible SBO Procedure Date: 04/23/2019 Accession Number: [id number] / [id number] Procedure: CT - Abdomen/Pelvis W CPT Code: FULL RESULT: EXAM: CT ABDOMEN AND PELVIS EXAM DATE: 04/23/2019 06:53 PM. CLINICAL HISTORY: Abdominal pain and vomiting; possible SBO. COMPARISONS: ABDOMEN/PELVIS W/O 10/24/2018 7:58 PM. TECHNIQUE: Routine helical CT imaging was performed through the abdomen and pelvis. IV contrast: OPTI 320 80 ML. Enteric contrast: No. Reconstructions: Coronal and sagittal. In accordance with CT protocol optimization, one or more of the following dose reduction techniques were utilized for this exam: automated exposure control, adjustment of mA and/or KV based on patient size, or use of iterative reconstructive technique. FINDINGS: Lung Bases: Unremarkable. Liver: Normal. No masses. Gallbladder/Bile Ducts: The gallbladder has been removed. There is no bile duct dilatation. Spleen: Normal. Pancreas: Normal. Adrenal Glands: Normal. Kidneys: Normal. No masses or hydronephrosis. Peritoneal Cavity/Bowel: There is moderate distention of the proximal to mid small bowel with collapse of the distal small bowel. No obstructing mass or hernia seen. Transition point in the right lower quadrant likely due to adhesions. There is no associated pneumoperitoneum or ascites. No evidence of appendicitis. Previously seen omental stranding and nodularity is no longer visualized. Pelvic Organs: The uterus has been removed. The urinary bladder is unremarkable. Vasculature: No aneurysms or other significant abnormality. 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 No destructive bone lesion seen. Other: None. IMPRESSION: 1. Mid to distal small bowel obstruction with transition point in the right lower quadrant most likely secondary to adhesions. There is no associated pneumoperitoneum or ascites. 2. Previously seen omental/peritoneal disease has resolved. RADIA
[2019-04-23] MEDS ORDERED: HYDROmorphone 1 MG/ML CARPUJECT IVP STA ×2 (19:47→22:40)
[2019-04-23 20:37] LABS: BILIRUBIN,URINE NEGATIVE (NEGATIVE); GLUCOSE, URINE (UA) NEGATIVE (NEGATIVE); KETONES,URINE (UA) NEGATIVE (NEGATIVE); LEUKOCYTE ESTERASE, URINE NEGATIVE (NEGATIVE); NITRITE,URINE NEGATIVE (NEGATIVE); OCCULT BLOOD,URINE NEGATIVE (NEGATIVE); PROTEIN,URINE TRACE mg/dL (NEGATIVE); UROBILINOGEN,URINE 0.2 (NORMAL) E.U./dL (NORMAL)
[2019-04-23 20:41] LABS: CLARITY,URINE CLEAR (CLEAR)
[2019-04-23] MEDS ORDERED: LIDOCAINE VISCOUS 2% 15 ML UDC MM STA (20:54)
[2019-04-23 22:46] VITALS: BP 164/95
== END 2019-04-23 23:01 | disposition short-term general hospital (02) ==
LOC: ED 15:14
DX: K56.50 Intestinal adhesions [bands], unspecified as to partial versus complete obstruction (principal); C56.9 Malignant neoplasm of unspecified ovary; I10 Essential (primary) hypertension; E11.9 Type 2 diabetes mellitus without complications; Z79.4 Long term (current) use of insulin
CPT/HCPCS: 36415; 74177; 80053; 81003; 83605; 83690; 83735; 85025; 96361; 96374; 96376; 99284; 99285; J1170; Q9967; 81001; 87086

== ENCOUNTER 2019-05-03 13:06 | Outpatient (CLI) | payer BC ==
[2019-05-03 13:27] LABS: BASOPHILS % (AUTO) 1.1 %; EOSINOPHILS % (AUTO) 0.9 %; HGB - HEMOGLOBIN 11.1 g/dL (12.0-16.0); LYMPHOCYTES # (AUTO) 1.2 10^3/uL (1.5-3.5); LYMPHOCYTES % (AUTO) 35.2 %; MEAN CORPUSCULAR HEMOGLOBIN 34.1 pg (27.0-31.0); MEAN CORPUSCULAR HGB CONC 34.7 g/dL (32.0-36.0); MEAN CORPUSCULAR VOLUME 98.1 fL (81.0-99.0); MEAN PLATELET VOLUME 7.3 fL (7.9-10.8); MONOCYTES # (AUTO) 0.4 10^3/uL (0.0-1.0); MONOCYTES % (AUTO) 13.5 %; NEUTROPHILS # (AUTO) 1.6 10^3/uL (1.5-6.6); NEUTROPHILS % (AUTO) 49.3 %; PLT - PLATELET COUNT 69 10^3/uL (130-450); RED BLOOD COUNT 3.26 10^6/uL (4.20-5.40); RED CELL DISTRIBUTION WIDTH 19.6 % (12.0-15.0); WHITE BLOOD COUNT 3.3 x10^3/uL (4.8-10.8)
[2019-05-03 13:39] LABS: ALBUMIN 4.3 g/dL (3.2-5.5); ALBUMIN/GLOBULIN RATIO 1.4 (1.0-2.2); BILIRUBIN,TOTAL 1.2 mg/dL (0.2-1.0); CALCIUM 9.5 mg/dL (8.5-10.3); CREATININE 0.9 mg/dL (0.4-1.0); TOTAL PROTEIN 7.4 g/dL (6.7-8.2)
[2019-05-03 13:57] LABS: HB2 TOTAL 11.3 g/dL; HEMOGLOBIN A1C 0.36 g/dL; HEMOGLOBIN A1C % 5.1 % (4.6-6.2)
== END 2019-05-03 13:07 | disposition home or self-care (01) ==
LOC: LAB 13:06
PROVIDERS: ATTEND Specialist
DX: C56.9 Malignant neoplasm of unspecified ovary (principal); E11.9 Type 2 diabetes mellitus without complications
CPT/HCPCS: 36415; 80053; 82985; 83036; 85025; 86304

== ENCOUNTER 2019-05-11 10:10 | Outpatient (CLI) | payer BC ==
[2019-05-11 10:59] LABS: BASOPHILS % (AUTO) 0.5 %; EOSINOPHILS # (AUTO) 0.1 10^3/uL (0.0-0.7); EOSINOPHILS % (AUTO) 0.7 %; HGB - HEMOGLOBIN 13.4 g/dL (12.0-16.0); LYMPHOCYTES # (AUTO) 1.2 10^3/uL (1.5-3.5); LYMPHOCYTES % (AUTO) 17.7 %; MEAN CORPUSCULAR HEMOGLOBIN 33.9 pg (27.0-31.0); MEAN CORPUSCULAR HGB CONC 34.6 g/dL (32.0-36.0); MEAN PLATELET VOLUME 7.5 fL (7.9-10.8); MONOCYTES # (AUTO) 0.8 10^3/uL (0.0-1.0); MONOCYTES % (AUTO) 11.4 %; NEUTROPHILS # (AUTO) 4.9 10^3/uL (1.5-6.6); NEUTROPHILS % (AUTO) 69.7 %; PLT - PLATELET COUNT 169 10^3/uL (130-450); RED BLOOD COUNT 3.96 10^6/uL (4.20-5.40)
== END 2019-05-11 10:11 | disposition home or self-care (01) ==
LOC: LAB 10:10
PROVIDERS: ATTEND Specialist
DX: C56.9 Malignant neoplasm of unspecified ovary (principal); Z79.899 Other long term (current) drug therapy
CPT/HCPCS: 36415; 85025

== ENCOUNTER 2019-05-26 11:38 | Outpatient (CLI) | payer BC ==
[2019-05-26 12:05] LABS: BASOPHILS % (AUTO) 0.6 %; EOSINOPHILS % (AUTO) 1.1 %; HGB - HEMOGLOBIN 9.1 g/dL (12.0-16.0); LYMPHOCYTES % (AUTO) 54.5 %; MEAN CORPUSCULAR HEMOGLOBIN 32.4 pg (27.0-31.0); MEAN CORPUSCULAR HGB CONC 33.7 g/dL (32.0-36.0); MEAN CORPUSCULAR VOLUME 96.1 fL (81.0-99.0); MEAN PLATELET VOLUME 9.5 fL (7.9-10.8); MONOCYTES % (AUTO) 7.4 %; NEUTROPHILS % (AUTO) 35.8 %; RED BLOOD COUNT 2.81 10^6/uL (4.20-5.40); RED CELL DISTRIBUTION WIDTH 13.8 % (12.0-15.0)
[2019-05-26 12:41] LABS: WHITE BLOOD COUNT 1.8 x10^3/uL (4.8-10.8)
[2019-05-26 12:42] LABS: PLT - PLATELET COUNT 15 10^3/uL (130-450)
[2019-05-26 13:01] LABS: ABNORMAL LYMPHS % (MANUAL) 0 %
[2019-05-26 13:05] LABS: BAND NEUTROPHILS % (MANUAL) 4 %; LYMPHOCYTES # (MANUAL) 0.9 10^3/uL (1.5-3.5); LYMPHOCYTES % (MANUAL) 52 %; MONOCYTES # (MANUAL) 0.1 10^3/uL (0.0-1.0); NEUTROPHILS # (MANUAL) 0.8 10^3/uL (1.5-6.6); NEUTROPHILS % (MANUAL) 40 %
[2019-05-26 13:06] LABS: PLATELET ESTIMATE, MANUAL DECREASED (<130,000) (NORMAL)
[2019-05-26 13:09] LABS: PLATELET MORPHOLOGY NORMAL APPEARANCE (NORMAL)
[2019-05-26 13:10] LABS: DIFFERENTIAL COMMENT MANUAL DIFFERENTIAL
== END 2019-05-26 11:39 | disposition home or self-care (01) ==
LOC: LAB 11:38
PROVIDERS: ATTEND Specialist
DX: Z51.11 Encounter for antineoplastic chemotherapy (principal); C56.9 Malignant neoplasm of unspecified ovary
CPT/HCPCS: 36415; 85025

== ENCOUNTER 2019-05-27 10:43 | Outpatient (CLI) | payer BC ==
[2019-05-27 11:09] LABS: BASOPHILS % (AUTO) 0.9 %; EOSINOPHILS % (AUTO) 0.9 %; HGB - HEMOGLOBIN 9.5 g/dL (12.0-16.0); LYMPHOCYTES % (AUTO) 57.3 %; MEAN CORPUSCULAR HGB CONC 35.1 g/dL (32.0-36.0); MEAN CORPUSCULAR VOLUME 94.1 fL (81.0-99.0); MEAN PLATELET VOLUME 9.2 fL (7.9-10.8); MONOCYTES % (AUTO) 8.2 %; NEUTROPHILS % (AUTO) 32.2 %; RED BLOOD COUNT 2.88 10^6/uL (4.20-5.40); RED CELL DISTRIBUTION WIDTH 14.2 % (12.0-15.0); WHITE BLOOD COUNT 2.2 x10^3/uL (4.8-10.8)
[2019-05-27 11:26] LABS: PLT - PLATELET COUNT 16 10^3/uL (130-450)
[2019-05-27 11:28] LABS: ABNORMAL LYMPHS % (MANUAL) 0 %; BAND NEUTROPHILS % (MANUAL) 0 %
[2019-05-27 11:33] LABS: NEUTROPHILS % (MANUAL) 22 %
[2019-05-27 11:34] LABS: BASOPHILS % (MANUAL) 1 %; DIFFERENTIAL COMMENT MANUAL DIFFERENTIAL; LYMPHOCYTES # (MANUAL) 1.4 10^3/uL (1.5-3.5); LYMPHOCYTES % (MANUAL) 60 %; MONOCYTES # (MANUAL) 0.2 10^3/uL (0.0-1.0); NEUTROPHILS # (MANUAL) 0.5 10^3/uL (1.5-6.6)
[2019-05-27 11:45] LABS: PLATELET ESTIMATE, MANUAL DECREASED (<130,000) (NORMAL); PLATELET MORPHOLOGY NORMAL APPEARANCE (NORMAL)
== END 2019-05-27 10:44 | disposition home or self-care (01) ==
LOC: LAB 10:43
PROVIDERS: ATTEND Specialist
DX: Z51.11 Encounter for antineoplastic chemotherapy (principal); C56.9 Malignant neoplasm of unspecified ovary
CPT/HCPCS: 36415; 85025

== ENCOUNTER 2019-05-28 10:37 | Outpatient (CLI) | payer BC ==
[2019-05-28 11:03] LABS: BASOPHILS % (AUTO) 0.5 %; EOSINOPHILS % (AUTO) 0.5 %; HGB - HEMOGLOBIN 9.1 g/dL (12.0-16.0); LYMPHOCYTES % (AUTO) 47.3 %; MEAN CORPUSCULAR HEMOGLOBIN 33.3 pg (27.0-31.0); MEAN CORPUSCULAR HGB CONC 35.1 g/dL (32.0-36.0); MEAN CORPUSCULAR VOLUME 94.9 fL (81.0-99.0); MONOCYTES % (AUTO) 10.6 %; RED BLOOD COUNT 2.73 10^6/uL (4.20-5.40); RED CELL DISTRIBUTION WIDTH 14.2 % (12.0-15.0)
[2019-05-28 11:11] LABS: ALBUMIN 4.1 g/dL (3.2-5.5); ALBUMIN/GLOBULIN RATIO 1.3 (1.0-2.2); CALCIUM 8.5 mg/dL (8.5-10.3); CREATININE 0.9 mg/dL (0.4-1.0); TOTAL PROTEIN 7.3 g/dL (6.7-8.2)
[2019-05-28 11:13] LABS: PLT - PLATELET COUNT 13 10^3/uL (130-450); WHITE BLOOD COUNT 1.9 x10^3/uL (4.8-10.8)
[2019-05-28 11:14] LABS: ABNORMAL LYMPHS % (MANUAL) 0 %; BAND NEUTROPHILS % (MANUAL) 0 %
[2019-05-28 11:28] LABS: LYMPHOCYTES % (MANUAL) 52 %; MONOCYTES # (MANUAL) 0.2 10^3/uL (0.0-1.0); NEUTROPHILS # (MANUAL) 0.8 10^3/uL (1.5-6.6); NEUTROPHILS % (MANUAL) 40 %
[2019-05-28 11:32] LABS: PLATELET MORPHOLOGY NORMAL APPEARANCE (NORMAL)
[2019-05-28 11:33] LABS: DIFFERENTIAL COMMENT MANUAL DIFFERENTIAL; PLATELET ESTIMATE, MANUAL DECREASED (<130,000) (NORMAL)
== END 2019-05-28 10:38 | disposition home or self-care (01) ==
LOC: LAB 10:37
PROVIDERS: ATTEND Specialist
DX: C56.9 Malignant neoplasm of unspecified ovary (principal); Z51.11 Encounter for antineoplastic chemotherapy
CPT/HCPCS: 80053; 85025

== ENCOUNTER 2019-05-31 11:59 | Outpatient (CLI) | payer BC ==
[2019-05-31 12:49] LABS: BASOPHILS % (AUTO) 0.5 %; HGB - HEMOGLOBIN 8.7 g/dL (12.0-16.0); LYMPHOCYTES # (AUTO) 0.7 10^3/uL (1.5-3.5); LYMPHOCYTES % (AUTO) 36.6 %; MEAN CORPUSCULAR HEMOGLOBIN 33.3 pg (27.0-31.0); MEAN CORPUSCULAR HGB CONC 33.9 g/dL (32.0-36.0); MEAN CORPUSCULAR VOLUME 98.5 fL (81.0-99.0); MEAN PLATELET VOLUME 9.4 fL (7.9-10.8); MONOCYTES # (AUTO) 0.3 10^3/uL (0.0-1.0); MONOCYTES % (AUTO) 14.7 %; NEUTROPHILS # (AUTO) 0.9 10^3/uL (1.5-6.6); NEUTROPHILS % (AUTO) 46.2 %; RED BLOOD COUNT 2.61 10^6/uL (4.20-5.40); RED CELL DISTRIBUTION WIDTH 15.4 % (12.0-15.0)
[2019-05-31 13:06] LABS: WHITE BLOOD COUNT 1.9 x10^3/uL (4.8-10.8)
[2019-05-31 13:07] LABS: PLT - PLATELET COUNT 18 10^3/uL (130-450)
== END 2019-05-31 12:00 | disposition home or self-care (01) ==
LOC: LAB 11:59
PROVIDERS: ATTEND Specialist
DX: C56.9 Malignant neoplasm of unspecified ovary (principal)
CPT/HCPCS: 36415; 85025

== ENCOUNTER 2019-06-02 10:29 | Outpatient (CLI) | payer BC ==
[2019-06-02 10:50] LABS: EOSINOPHILS % (AUTO) 1.4 %; HGB - HEMOGLOBIN 9.2 g/dL (12.0-16.0); LYMPHOCYTES # (AUTO) 0.9 10^3/uL (1.5-3.5); LYMPHOCYTES % (AUTO) 44.7 %; MEAN CORPUSCULAR HEMOGLOBIN 33.5 pg (27.0-31.0); MEAN CORPUSCULAR HGB CONC 34.2 g/dL (32.0-36.0); MEAN CORPUSCULAR VOLUME 97.8 fL (81.0-99.0); MEAN PLATELET VOLUME 12.3 fL (7.9-10.8); MONOCYTES # (AUTO) 0.4 10^3/uL (0.0-1.0); MONOCYTES % (AUTO) 17.3 %; NEUTROPHILS # (AUTO) 0.7 10^3/uL (1.5-6.6); NEUTROPHILS % (AUTO) 34.6 %; RED BLOOD COUNT 2.75 10^6/uL (4.20-5.40); RED CELL DISTRIBUTION WIDTH 15.7 % (12.0-15.0); WHITE BLOOD COUNT 2.1 x10^3/uL (4.8-10.8)
[2019-06-02 11:10] LABS: PLT - PLATELET COUNT 28 10^3/uL (130-450)
== END 2019-06-02 10:30 | disposition home or self-care (01) ==
LOC: LAB 10:29
PROVIDERS: ATTEND Specialist
DX: Z51.11 Encounter for antineoplastic chemotherapy (principal); C56.9 Malignant neoplasm of unspecified ovary
CPT/HCPCS: 85025

== ENCOUNTER 2019-06-08 10:31 | Outpatient (CLI) | payer BC ==
[2019-06-08 11:03] LABS: BASOPHILS % (AUTO) 0.5 %; EOSINOPHILS % (AUTO) 0.5 %; HGB - HEMOGLOBIN 10.2 g/dL (12.0-16.0); LYMPHOCYTES # (AUTO) 1.3 10^3/uL (1.5-3.5); LYMPHOCYTES % (AUTO) 31.6 %; MEAN CORPUSCULAR HEMOGLOBIN 33.6 pg (27.0-31.0); MEAN CORPUSCULAR HGB CONC 33.7 g/dL (32.0-36.0); MEAN CORPUSCULAR VOLUME 99.7 fL (81.0-99.0); MEAN PLATELET VOLUME 11.1 fL (7.9-10.8); MONOCYTES # (AUTO) 0.8 10^3/uL (0.0-1.0); MONOCYTES % (AUTO) 19.1 %; NEUTROPHILS % (AUTO) 47.3 %; PLT - PLATELET COUNT 88 10^3/uL (130-450); RED BLOOD COUNT 3.04 10^6/uL (4.20-5.40); RED CELL DISTRIBUTION WIDTH 17.4 % (12.0-15.0); WHITE BLOOD COUNT 4.1 x10^3/uL (4.8-10.8)
[2019-06-08 11:20] LABS: PLATELET ESTIMATE, MANUAL DECREASED (<130,000) (NORMAL); PLATELET MORPHOLOGY NORMAL APPEARANCE (NORMAL); RBC MORPHOLOGY (MULTIPLE) NORMAL APPEARANCE (NORMAL)
== END 2019-06-08 10:32 | disposition home or self-care (01) ==
LOC: LAB 10:31
PROVIDERS: ATTEND Specialist
DX: C56.9 Malignant neoplasm of unspecified ovary (principal)
CPT/HCPCS: 36415; 85025

== ENCOUNTER 2019-06-10 10:55 | Outpatient (CLI) | payer BC ==
[2019-06-10 11:15] LABS: BASOPHILS % (AUTO) 0.3 %; HGB - HEMOGLOBIN 10.1 g/dL (12.0-16.0); LYMPHOCYTES # (AUTO) 0.9 10^3/uL (1.5-3.5); LYMPHOCYTES % (AUTO) 29.4 %; MEAN CORPUSCULAR HEMOGLOBIN 34.2 pg (27.0-31.0); MEAN CORPUSCULAR HGB CONC 33.6 g/dL (32.0-36.0); MEAN PLATELET VOLUME 10.1 fL (7.9-10.8); MONOCYTES # (AUTO) 0.4 10^3/uL (0.0-1.0); MONOCYTES % (AUTO) 11.6 %; NEUTROPHILS # (AUTO) 1.7 10^3/uL (1.5-6.6); PLT - PLATELET COUNT 101 10^3/uL (130-450); RED BLOOD COUNT 2.95 10^6/uL (4.20-5.40); RED CELL DISTRIBUTION WIDTH 17.5 % (12.0-15.0)
[2019-06-10 11:23] LABS: ALBUMIN 4.2 g/dL (3.2-5.5); ALBUMIN/GLOBULIN RATIO 1.3 (1.0-2.2); CALCIUM 9.3 mg/dL (8.5-10.3); CREATININE 1.1 mg/dL (0.4-1.0); TOTAL PROTEIN 7.5 g/dL (6.7-8.2)
== END 2019-06-10 10:56 | disposition home or self-care (01) ==
LOC: LAB 10:55
PROVIDERS: ATTEND Specialist
DX: C56.9 Malignant neoplasm of unspecified ovary (principal)
CPT/HCPCS: 36415; 80053; 85025; 86304

== ENCOUNTER 2019-07-16 10:36 | Outpatient (CLI) | payer BC ==
[2019-07-16 10:54] LABS: BASOPHILS % (AUTO) 0.7 %; EOSINOPHILS # (AUTO) 0.1 10^3/uL (0.0-0.7); EOSINOPHILS % (AUTO) 2.5 %; HGB - HEMOGLOBIN 10.7 g/dL (12.0-16.0); LYMPHOCYTES # (AUTO) 1.3 10^3/uL (1.5-3.5); LYMPHOCYTES % (AUTO) 31.4 %; MEAN CORPUSCULAR HEMOGLOBIN 35.1 pg (27.0-31.0); MEAN CORPUSCULAR HGB CONC 34.3 g/dL (32.0-36.0); MEAN CORPUSCULAR VOLUME 102.3 fL (81.0-99.0); MONOCYTES # (AUTO) 0.5 10^3/uL (0.0-1.0); MONOCYTES % (AUTO) 13.5 %; NEUTROPHILS # (AUTO) 2.1 10^3/uL (1.5-6.6); NEUTROPHILS % (AUTO) 51.4 %; PLT - PLATELET COUNT 104 10^3/uL (130-450); RED BLOOD COUNT 3.05 10^6/uL (4.20-5.40)
[2019-07-16] MEDS ORDERED: IOVERSOL 320 50 ML VIAL ONE (11:13)
[2019-07-16] MEDS ORDERED: IOVERSOL 320 100 ML VIAL IVP ONE ×2 (11:13→13:12)
[2019-07-16] MEDS ORDERED: SODIUM CHLORIDE FLUSH 0.9% 10 ML SYRINGE ONE (11:27)
[2019-07-16] MEDS ORDERED: IOVERSOL 320 50 ML VIAL PO ONE (13:12)
--- NOTE | 2019-07-19 00:50 | CT Report ---
Reason: MALIGNANT NEOPLASM OF OVARY, UNSPECIFIED LATERALIT Procedure Date: 07/16/2019 Accession Number: [id number] / [id number] Procedure: CT - Abdomen/Pelvis W CPT Code: FULL RESULT: EXAM: CT CHEST, ABDOMEN AND PELVIS EXAM DATE: 07/16/2019 12:28 PM CLINICAL HISTORY: Ovarian neoplasm, restaging exam. COMPARISONS: ABDOMEN/PELVIS W/ 09/22/2017 11:11 AM, ABDOMEN/PELVIS W/ 04/23/2019 6:44 PM, THORAX CAP W (ADULT) 02/24/2019 10:03 AM, ABDOMEN/PELVIS W/ 07/16/2019 12:22 PM. TECHNIQUE: Routine helical CT imaging was performed through the chest, abdomen, and pelvis. IV contrast: 85 mL Optiray 320. Enteric contrast: No. Reconstructions: Coronal and sagittal. In accordance with CT protocol optimization, one or more of the following dose reduction techniques were utilized for this exam: automated exposure control, adjustment of mA and/or KV based on patient size, or use of iterative reconstructive technique. FINDINGS: CHEST: Lungs and Pleura: There is no significant lung consolidation. Small linear focus of scarring is noted within the anterior portion of the right upper lobe. Central Airways: Visualized central airways are without suspicious filling defects. Chest Wall: Right-sided Port-A-Cath device tip projects along the inferior portion of the right atrium. Thyroid: No significant abnormality. Mediastinum: No significant abnormality. Heart: Normal in size. No significant pericardial effusion. Thoracic aorta: Normal caliber. ABDOMEN: Liver: No significant abnormality. Stomach/Distal Esophagus: No significant abnormality. Gallbladder: Cholecystectomy. Bile Ducts: No significant abnormality. Pancreas: No significant abnormality. Spleen: No significant abnormality. Kidneys: No suspicious solid appearing lesion. No hydronephrosis. Adrenals: No significant abnormality. Vasculature: Normal caliber aorta. Bowel: No significant abnormality. Moderate fecal residual. Appendix: Normal. Lymph Nodes: No pathologically enlarged nodes. Fluid: No significant free fluid. Abdominal Wall: There is a small lobulated ventral abdominal hernia at the midline, containing tiny foci of fat. No bowel herniation demonstrated. Other: Findings are suggestive of prior omentectomy. PELVIS: Uterus and Ovaries: Surgically absent uterus. Ovaries are not visualized, possibly surgically absent as well. Bladder: No significant abnormality. Lymph Nodes: No pathologically enlarged nodes. Fluid: No significant free fluid. Other: No significant abnormality. BONES: No suspicious bony lesions. Grade 1 spondylolisthesis of L5 relative to S1 is again seen. IMPRESSION: 1. No CT evidence of metastatic disease noted within the chest, abdomen, or pelvis. 2. Bilateral oophorectomy. Prior cholecystectomy. 3. Moderate amount of retained colonic fecal matter suggestive of constipation. RADIA
--- NOTE | 2019-07-19 00:51 | CT Report ---
Reason: MALIGNANT NEOPLASM OF OVARY, UNSPECIFIED LATERLIT Procedure Date: 07/16/2019 Accession Number: [id number] / [id number] Procedure: CT - CHEST W CPT Code: FULL RESULT: EXAM: CT CHEST, ABDOMEN AND PELVIS EXAM DATE: 07/16/2019 12:28 PM CLINICAL HISTORY: Ovarian neoplasm, restaging exam. COMPARISONS: ABDOMEN/PELVIS W/ 09/22/2017 11:11 AM, ABDOMEN/PELVIS W/ 04/23/2019 6:44 PM, THORAX CAP W (ADULT) 02/24/2019 10:03 AM, ABDOMEN/PELVIS W/ 07/16/2019 12:22 PM. TECHNIQUE: Routine helical CT imaging was performed through the chest, abdomen, and pelvis. IV contrast: 85 mL Optiray 320. Enteric contrast: No. Reconstructions: Coronal and sagittal. In accordance with CT protocol optimization, one or more of the following dose reduction techniques were utilized for this exam: automated exposure control, adjustment of mA and/or KV based on patient size, or use of iterative reconstructive technique. FINDINGS: CHEST: Lungs and Pleura: There is no significant lung consolidation. Small linear focus of scarring is noted within the anterior portion of the right upper lobe. Central Airways: Visualized central airways are without suspicious filling defects. Chest Wall: Right-sided Port-A-Cath device tip projects along the inferior portion of the right atrium. Thyroid: No significant abnormality. Mediastinum: No significant abnormality. Heart: Normal in size. No significant pericardial effusion. Thoracic aorta: Normal caliber. ABDOMEN: Liver: No significant abnormality. Stomach/Distal Esophagus: No significant abnormality. Gallbladder: Cholecystectomy. Bile Ducts: No significant abnormality. Pancreas: No significant abnormality. Spleen: No significant abnormality. Kidneys: No suspicious solid appearing lesion. No hydronephrosis. Adrenals: No significant abnormality. Vasculature: Normal caliber aorta. Bowel: No significant abnormality. Moderate fecal residual. Appendix: Normal. Lymph Nodes: No pathologically enlarged nodes. Fluid: No significant free fluid. Abdominal Wall: There is a small lobulated ventral abdominal hernia at the midline, containing tiny foci of fat. No bowel herniation demonstrated. Other: Findings are suggestive of prior omentectomy. PELVIS: Uterus and Ovaries: Surgically absent uterus. Ovaries are not visualized, possibly surgically absent as well. Bladder: No significant abnormality. Lymph Nodes: No pathologically enlarged nodes. Fluid: No significant free fluid. Other: No significant abnormality. BONES: No suspicious bony lesions. Grade 1 spondylolisthesis of L5 relative to S1 is again seen. IMPRESSION: 1. No CT evidence of metastatic disease noted within the chest, abdomen, or pelvis. 2. Bilateral oophorectomy. Prior cholecystectomy. 3. Moderate amount of retained colonic fecal matter suggestive of constipation. RADIA
== END 2019-07-16 10:37 | disposition home or self-care (01) ==
LOC: DI 10:36
PROVIDERS: ATTEND Specialist
DX: C56.9 Malignant neoplasm of unspecified ovary (principal); Z90.722 Acquired absence of ovaries, bilateral; Z90.49 Acquired absence of other specified parts of digestive tract; Z51.11 Encounter for antineoplastic chemotherapy
CPT/HCPCS: 36415; 71260; 74177; 85025; 86304

== ENCOUNTER 2019-09-06 16:29 | Outpatient (CLI) | payer BC ==
[2019-09-06 16:44] LABS: BASOPHILS % (AUTO) 0.5 %; EOSINOPHILS # (AUTO) 0.2 10^3/uL (0.0-0.7); EOSINOPHILS % (AUTO) 3.3 %; HGB - HEMOGLOBIN 11.6 g/dL (12.0-16.0); LYMPHOCYTES # (AUTO) 1.4 10^3/uL (1.5-3.5); LYMPHOCYTES % (AUTO) 22.3 %; MEAN CORPUSCULAR HEMOGLOBIN 33.3 pg (27.0-31.0); MEAN CORPUSCULAR HGB CONC 33.6 g/dL (32.0-36.0); MEAN CORPUSCULAR VOLUME 99.1 fL (81.0-99.0); MEAN PLATELET VOLUME 9.4 fL (7.9-10.8); MONOCYTES # (AUTO) 0.7 10^3/uL (0.0-1.0); MONOCYTES % (AUTO) 11.7 %; NEUTROPHILS # (AUTO) 3.9 10^3/uL (1.5-6.6); NEUTROPHILS % (AUTO) 61.4 %; PLT - PLATELET COUNT 139 10^3/uL (130-450); RED BLOOD COUNT 3.48 10^6/uL (4.20-5.40); RED CELL DISTRIBUTION WIDTH 15.2 % (12.0-15.0); WHITE BLOOD COUNT 6.3 x10^3/uL (4.8-10.8)
[2019-09-06 16:58] LABS: ALBUMIN 4.5 g/dL (3.2-5.5); ALBUMIN/GLOBULIN RATIO 1.3 (1.0-2.2); BILIRUBIN,TOTAL 1.3 mg/dL (0.2-1.0); CALCIUM 9.7 mg/dL (8.5-10.3); CREATININE 1.3 mg/dL (0.4-1.0)
== END 2019-09-06 16:30 | disposition home or self-care (01) ==
LOC: LAB 16:29
PROVIDERS: ATTEND Specialist
DX: C56.9 Malignant neoplasm of unspecified ovary (principal)
CPT/HCPCS: 36415; 80053; 85025; 86304

== ENCOUNTER 2019-10-01 16:46 | Outpatient (CLI) | payer BC ==
[2019-10-01 17:21] LABS: BASOPHILS % (AUTO) 0.4 %; EOSINOPHILS # (AUTO) 0.2 10^3/uL (0.0-0.7); EOSINOPHILS % (AUTO) 2.4 %; HGB - HEMOGLOBIN 11.9 g/dL (12.0-16.0); LYMPHOCYTES # (AUTO) 1.5 10^3/uL (1.5-3.5); LYMPHOCYTES % (AUTO) 17.9 %; MEAN CORPUSCULAR HEMOGLOBIN 34.3 pg (27.0-31.0); MEAN CORPUSCULAR HGB CONC 35.4 g/dL (32.0-36.0); MEAN CORPUSCULAR VOLUME 96.8 fL (81.0-99.0); MEAN PLATELET VOLUME 9.5 fL (7.9-10.8); MONOCYTES # (AUTO) 0.8 10^3/uL (0.0-1.0); MONOCYTES % (AUTO) 10.1 %; NEUTROPHILS # (AUTO) 5.6 10^3/uL (1.5-6.6); NEUTROPHILS % (AUTO) 68.3 %; PLT - PLATELET COUNT 155 10^3/uL (130-450); RED BLOOD COUNT 3.47 10^6/uL (4.20-5.40); WHITE BLOOD COUNT 8.2 x10^3/uL (4.8-10.8)
[2019-10-01 17:34] LABS: ALBUMIN 4.5 g/dL (3.2-5.5); ALBUMIN/GLOBULIN RATIO 1.4 (1.0-2.2); CALCIUM 9.4 mg/dL (8.5-10.3); TOTAL PROTEIN 7.7 g/dL (6.7-8.2)
== END 2019-10-01 16:47 | disposition home or self-care (01) ==
LOC: LAB 16:46
PROVIDERS: ATTEND Specialist
DX: Z51.11 Encounter for antineoplastic chemotherapy (principal); C56.9 Malignant neoplasm of unspecified ovary
CPT/HCPCS: 36415; 80053; 85025; 86304

== ENCOUNTER 2019-10-20 01:12 | Observation (INO) | payer BC ==
[2019-10-20 01:40] LABS: BASOPHILS # (AUTO) 0.1 10^3/uL (0.0-0.1); BASOPHILS % (AUTO) 0.5 %; EOSINOPHILS # (AUTO) 0.2 10^3/uL (0.0-0.7); EOSINOPHILS % (AUTO) 1.6 %; HGB - HEMOGLOBIN 12.7 g/dL (12.0-16.0); LYMPHOCYTES % (AUTO) 10.6 %; MEAN CORPUSCULAR VOLUME 97.3 fL (81.0-99.0); MEAN PLATELET VOLUME 9.3 fL (7.9-10.8); MONOCYTES # (AUTO) 0.7 10^3/uL (0.0-1.0); MONOCYTES % (AUTO) 7.1 %; NEUTROPHILS # (AUTO) 7.7 10^3/uL (1.5-6.6); NEUTROPHILS % (AUTO) 79.4 %; PLT - PLATELET COUNT 167 10^3/uL (130-450); RED BLOOD COUNT 3.73 10^6/uL (4.20-5.40); RED CELL DISTRIBUTION WIDTH 16.9 % (12.0-15.0); WHITE BLOOD COUNT 9.7 x10^3/uL (4.8-10.8)
[2019-10-20] MEDS ORDERED: HYDROmorphone 1 MG/ML CARPUJECT IVP STA (01:40)
[2019-10-20] MEDS ORDERED: SODIUM CHLORIDE 0.9% 1,000 ML IV ONE ×2 (01:40→02:12)
[2019-10-20] MEDS ORDERED: ONDANSETRON 4 MG/2 ML VIAL IVP STA (01:40)
[2019-10-20] MEDS ORDERED: IOVERSOL 320 100 ML VIAL IVP ONE ×2 (01:49→03:01)
[2019-10-20] MEDS ORDERED: IOVERSOL 320 50 ML VIAL ONE ×2 (01:49→03:37)
[2019-10-20 01:53] LABS: ALBUMIN 4.5 g/dL (3.2-5.5); ALBUMIN/GLOBULIN RATIO 1.2 (1.0-2.2); BILIRUBIN,TOTAL 1.1 mg/dL (0.2-1.0); CALCIUM 9.8 mg/dL (8.5-10.3); CREATININE 1.1 mg/dL (0.4-1.0); TOTAL PROTEIN 8.2 g/dL (6.7-8.2)
[2019-10-20] MEDS ORDERED: PROMETHAZINE INJ 25 MG in SODIUM CHLORIDE 0.9% 50 ML IV STA (02:34)
[2019-10-20] MEDS ORDERED: IOVERSOL 320 50 ML VIAL PO ONE (03:38)
--- NOTE | 2019-10-20 03:53 | CT Report ---
Reason: possible bowel obstruction Procedure Date: 10/20/2019 Accession Number: [id number] / [id number] Procedure: CT - Abdomen/Pelvis W CPT Code: Final Report FULL RESULT: EXAM: CT ABDOMEN AND PELVIS EXAM DATE: 10/20/2019 03:05 AM CLINICAL HISTORY: Possible bowel obstruction. History of ovarian cancer status post hysterectomy. COMPARISONS: CHEST W/ 07/16/2019 12:22 PM, ABDOMEN/PELVIS W/ 07/16/2019 12:22 PM. TECHNIQUE: Routine helical CT imaging was performed through the abdomen and pelvis. IV contrast: 100 mL Optiray 320. Enteric contrast: No. Reconstructions: Coronal and sagittal. In accordance with CT protocol optimization, one or more of the following dose reduction techniques were utilized for this exam: automated exposure control, adjustment of mA and/or KV based on patient size, or use of iterative reconstructive technique. FINDINGS: The lung bases are clear. A central venous catheter is partially imaged in the right atrium. The heart is normal in size. There is no pericardial effusion. Post-cholecystectomy clips are seen. The liver enhances homogeneously. No focal intrahepatic mass is seen. The common bile duct is prominent in size at 1 cm, likely related to post-cholecystectomy changes. The pancreatic duct is prominent in size, unchanged. The pancreas is otherwise normal. The spleen and adrenal glands are normal. There is a tiny cortical lesion in the left kidney measuring 4 mm, which is too small to characterize (series 3, image 39). The kidneys otherwise enhance symmetrically. Mild perinephric fat stranding is seen. There is no hydronephrosis. Small volume ascites is seen in the perihepatic region. A surgical staple line is seen near the rectosigmoid anastomosis. A few sigmoid diverticula are seen without evidence of diverticulitis. Retained stool is seen throughout the colon. The stomach, duodenum, and jejunum are normal in caliber. There is mild distention of portions of the ileum with air-fluid levels. One transition zone is seen in the right lower quadrant (series 3, images 64-60). An additional transition zone is seen in the lower left abdomen (series 3, images 59-63). There is no associated bowel wall thickening, pneumatosis, or free intraperitoneal air. No mesenteric edema is seen. There is no lymphadenopathy. No ascites is seen. The abdominal aorta is normal in course and caliber. Minimal atherosclerotic plaque calcifications are seen in the iliac vessels. The bladder is normal. The uterus and adnexal structures are absent. There is no free pelvic fluid. No acute osseous abnormality is present. There is unchanged grade 1 anterolisthesis at L5-S1 with bilateral L5 pars defects. IMPRESSION: 1. Mild distention of portions of the ileum with air-fluid levels and suggestion of transition points in the lower right and left abdomen, which may reflect a partial small bowel obstruction versus focal ileus. Air and stool are seen throughout the colon. 2. Small volume perihepatic ascites. RADIA
--- NOTE | 2019-10-20 03:59 | ED Physician Documentation ---
PD HPI ABD PAIN - Stated complaint Stated Complaint: ABD PX - Chief complaint Chief Complaint: Abd Pain - History obtained from History obtained from: Patient, Family - History of Present Illness Timing - onset: How many hours ago (at 9pm), Today Timing - duration: Hours (5 hours) Timing - details: Abrupt onset Severity Comments: moderate Quality: Cramping (in lower abdomen) Location: RLQ, LLQ Radiation: Other (no radiation) Improved by: Other (nothing) Worsened by: Eating (or drinking) Associated symptoms: Nausea, Vomiting, Other (denies hematemesis or hematochezia or black stool. Deneis fever. Denies cp, sob) Similar symptoms before: Diagnosis (similar to prior episode of a bowel obstruction) Recently seen: Clinic - Treatment prior to arrival Treatment prior to arrival: zofran at home - Additional information Additional information: Pt has metastatic Ovarian cancer on oral chemotherapy and has hx of prior bowel obstructions. Last BM was at 8pm and flatus at that time. NPO since then Review of Systems Ten Systems: 10 systems reviewed and negative Constitutional: reports: Reviewed and negative Cardiac: reports: Reviewed and negative Respiratory: reports: Reviewed and negative GI: reports: Abdominal Pain, Nausea, Vomiting : reports: Reviewed and negative Skin: reports: Reviewed and negative Neurologic: reports: Reviewed and negative Psychiatric: reports: Reviewed and negative Immunocompromised: reports: Reviewed and negative PD PAST MEDICAL HISTORY - Past Medical History Past Medical History: Yes Cardiovascular: Hypertension Respiratory: None Neuro: None Endocrine/Autoimmune: Type 2 diabetes GI: GERD, Other (SBO) 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 : None HEENT: None Psych: None Musculoskeletal: Osteoarthritis Derm: None - Past Surgical History Past Surgical History: Yes General: Cholecystectomy /IT SERVICE TECHNICIAN: Hysterectomy, Oophrectomy, Other - Present Medications Home Medications: Ambulatory Orders Medication Instructions Recorded Confirmed Cholecalciferol (Vitamin D3) 5,000 unit PO DAILY 04/27/17 10/20/19 [Vitamin D3] Metoprolol Succinate [Toprol Xl] 100 mg PO DAILY PM 04/27/17 10/20/19 Pravastatin [Pravachol] 40 mg PO DAILY PM 04/27/17 10/20/19 Omeprazole 20 mg PO DAILY 03/20/19 10/20/19 Ondansetron [Ondansetron Odt] 8 mg PO Q8H PRN 03/20/19 10/20/19 Losartan [Cozaar] 100 mg PO DAILY 10/20/19 10/20/19 Olaparib [Lynparza] 150 mg PO BID 10/20/19 10/20/19 amLODIPine [Norvasc] 5 mg PO DAILY 10/20/19 10/20/19 - Allergies Allergies/Adverse Reactions: Allergies Allergy/AdvReac Type Severity Reaction Status Date / Time paclitaxel [From Taxol] Allergy Severe Anaphylaxis Verified 10/20/19 01:23 cefdinir AdvReac Severe Nausea Verified 10/20/19 01:23 clindamycin AdvReac Severe Nausea Verified 10/20/19 01:23 levofloxacin AdvReac Intermediate Nausea Verified 10/20/19 01:23 sulfamethoxazole AdvReac Intermediate Hallucinati Verified 10/20/19 01:23 [From Bactrim] ons meloxicam AdvReac Mild Nausea Verified 10/20/19 01:23 Penicillins AdvReac Mild Nausea Verified 10/20/19 01:23 metformin AdvReac severe abd Verified 10/20/19 01:23 pain - Social History Does the pt smoke?: No Smoking Status: Never smoker Does the pt drink ETOH?: No Does the pt have substance abuse?: No - Immunizations Immunizations are current?: Yes - POLST Patient has POLST: No PD ED PE NORMAL - Vitals Vital signs reviewed: Yes - General General: Alert and oriented X 3, No acute distress, Well developed/nourished - HEENT HEENT: Atraumatic, Moist mucous membranes, Pharynx benign - Neck Neck: Supple, no meningeal sign - Cardiac Cardiac: RRR - Respiratory Respiratory: No respiratory distress - Abdomen Abdomen: Soft, Non tender, Non distended - Female Female : Deferred - Rectal Rectal: Deferred - Derm Derm: Normal color, Warm and dry, No rash - Extremities Extremities: No deformity - Neuro Neuro: Alert and oriented X 3 Eye Opening: Spontaneous Motor: Obeys Commands Verbal: Oriented GCS Score: 15 - Psych Psych: Normal mood, Normal affect Results - Vitals Vitals: Vital Signs - 24 hr 10/20/19 10/20/19 10/20/19 01:21 01:38 02:44 Temperature 37.2 C Heart Rate 86 62 72 Respiratory 17 15 15 Rate Blood Pressure 157/95 H 189/103 H 158/99 H O2 Saturation 97 99 100 Oxygen O2 Source Room air - Labs Labs: Laboratory Tests 10/20/19 10/20/19 10/20/19 01:35 01:35 01:40 WBC 9.7 RBC 3.73 L Hgb 12.7 Hct 36.3 L MCV 97.3 MCH 34.0 H MCHC 35.0 RDW 16.9 H Plt Count 167 MPV 9.3 Neut # (Auto) 7.7 H Lymph # (Auto) 1.0 L [place] # (Auto) 0.7 Eos # (Auto) 0.2 Baso # (Auto) 0.1 Absolute Nucleated RBC 0.00 Nucleated RBC % 0.0 Sodium 136 Potassium 4.1 Chloride 100 L Carbon Dioxide 25 Anion Gap 11.0 BUN 27 H Creatinine 1.1 H Estimated GFR (MDRD) 51 L Glucose 244 H Lactic Acid 1.6 Calcium 9.8 Total Bilirubin 1.1 H AST 20 ALT 18 Alkaline Phosphatase 85 Total Protein 8.2 Albumin 4.5 Globulin 3.7 Albumin/Globulin Ratio 1.2 Lipase 43 - Rads (name of study) CT abdomen/pelvis Radiology: Final report received, See rad report (partial SBO vs ileus) PD MEDICAL DECISION MAKING - ED course Complexity details: reviewed results, re-evaluated patient, considered differential, d/w patient, d/w family ED course: ddx - SBO, gastroenteritis, colitis, diverticulitis, ileus, cancer associated pain 59 y/o F with hx and exam as documented given prior hx concerning for SBO. Given IV fluids, antiemetics, analgesics on arrival with improvement in symptoms. Pt given IV and Oral contrast for CT and vomited oral contrast. Obtained CT regardless not to further delay evaluation. CT suggestive of partial SBO vs ileus. Discussed with pt and family and plan to admit pt for further management. Hospitalist agrees to admit for further management. Departure - Departure Disposition: ED Place in Observation Clinical Impression: Small bowel obstruction Discharge Date/Time: 10/20/19 05:22
[2019-10-20] MEDS ORDERED: SODIUM CHLORIDE FLUSH 0.9% 10 ML SYRINGE IVP PRN (04:22)
[2019-10-20] MEDS ORDERED: ONDANSETRON 4 MG/2 ML VIAL IVP PRN (04:22)
[2019-10-20] MEDS ORDERED: MORPHINE 2 MG/ML CARPUJECT IVP PRN (04:22)
--- NOTE | 2019-10-20 04:35 | HISTORY & PHYSICAL EXAMINATION ---
Chief Complaint - Chief Complaint Chief Complaint: abd pain History of Present Illness - Admitted From Admitted From:: [facility] ED - History Obtained From Records Reviewed: yes History obtained from: patient - History of Present Illness HPI Comment/Other: Patient is a 59 y/o female who presented to the ED with abdominal pain/cramping. Her symptoms started around 9pm on 10/19/19 after she had gone to the bathroom. She was nauseous and vomited 3 times at home. She waited with the hopes of her symptoms resolving but it got worse so she came to the ED to be evaluated. She also complains of bloating. She vomited once in the ED after being given contrast to drink. She denies chest pain, dyspnea or fever. She has history of ovarian cancer s/p hysterectomy, omentum removal and sigmoid colon resection. She is currently on a chemotherapy pill (lynparza). She follows with Dr Jaspreet Alvarado. CT of the abdomen done showed a partial small bowel obstruction. As a result she is being admitted for further treatment. 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 : reports: None HEENT: reports: None Psych: reports: None Musculoskeletal: reports: Osteoarthritis Derm: reports: None MRSA Hx?: No - Past Surgical History General: reports: Cholecystectomy /JOB COST ESTIMATOR: reports: Hysterectomy, Oophrectomy, Other - Family & Social History Family History: Mother: , CVA/TIA (hx kidney transplant; 78), Father: , Cancer (kidney and bladder), Brother: Alive and Well (alive and well x 2) Living arrangement: At home - Substance History Use: Uses substance without health or social issues: NONE - POLST Patient has POLST: No POLST Status: Full Code Meds/Allgy - Home Medications Home Medications: Ambulatory Orders Medication Instructions Recorded Confirmed Cholecalciferol (Vitamin D3) 5,000 unit PO DAILY 04/27/17 03/20/19 [Vitamin D3] Metoprolol Succinate [Toprol Xl] 100 mg PO DAILY PM 04/27/17 03/20/19 Pravastatin [Pravachol] 40 mg PO DAILY PM 04/27/17 03/20/19 Acetaminophen [Tylenol Extra 1,000 mg PO Q6H PRN 03/20/19 03/20/19 Strength] Cyclobenzaprine HCl 5 - 10 mg PO Q6H PRN 03/20/19 03/20/19 Gabapentin [Neurontin] 600 mg PO TID PRN 03/20/19 03/20/19 Ibuprofen [Motrin] 600 mg PO Q6H PRN 03/20/19 03/20/19 LORazepam [Lorazepam] 0.5 mg PO Q4H PRN 03/20/19 03/20/19 Lidocaine 1 patch TOP DAILY 03/20/19 03/20/19 Morphine Ir [Ms Ir] 15 mg PO Q4H PRN 03/20/19 03/20/19 OLANZapine [Olanzapine] 5 mg PO DAILY 03/20/19 03/20/19 Omeprazole 20 mg PO DAILY 03/20/19 03/20/19 Ondansetron [Ondansetron Odt] 8 mg PO Q8H PRN 03/20/19 03/20/19 Prochlorperazine Supp [Compazine 25 mg RI Q12H PRN 03/20/19 03/20/19 Supp] Scopolamine [Transderm-Scop] 1 patch TOP Q72H 03/20/19 03/20/19 fentaNYL [Fentanyl 50mcg patch] 1 patch TOP Q72H 03/20/19 03/20/19 Clobetasol Propionate/Emoll 1 applic TOP BID PRN 03/24/19 03/24/19 [Clobetasol Emollient 0.05% Crm] Insulin Lispro [Humalog] 2 - 4 unit SUBQ .SLIDINGSCALE 03/24/19 03/24/19 Lidocaine 1 applic TOP PRN PRN 03/24/19 03/24/19 cefTRIAXone [Rocephin 1 gram] 1 gm IV DAILY #13 vial 03/24/19 - Allergies Allergies/Adverse Reactions: Allergies Allergy/AdvReac Type Severity Reaction Status Date / Time paclitaxel [From Taxol] Allergy Severe Anaphylaxis Verified 10/20/19 01:23 cefdinir AdvReac Severe Nausea Verified 10/20/19 01:23 clindamycin AdvReac Severe Nausea Verified 10/20/19 01:23 levofloxacin AdvReac Intermediate Nausea Verified 10/20/19 01:23 sulfamethoxazole AdvReac Intermediate Hallucinati Verified 10/20/19 01:23 [From Bactrim] ons meloxicam AdvReac Mild Nausea Verified 10/20/19 01:23 Penicillins AdvReac Mild Nausea Verified 10/20/19 01:23 metformin AdvReac severe abd Verified 10/20/19 01:23 pain Review of Systems - Constitutional Constitutional: denies: Fever, Chills - Eyes Eyes: denies: Pain, Vision loss, Dipolpia - Ears, Nose & Throat Ears, Nose & Throat: denies: Vertigo, Hoarseness - Cardiovascular Cariovascular: denies: Palpitations, Chest pain, Edema, Syncope, Exertional dyspnea - Respiratory Respiratory: denies: Cough, Sputum production, Wheezing, Snoring, SOB at rest, SOB with exertion - Gastrointestinal Gastrointestinal: reports: Abdominal pain, Nausea, Vomiting, Bloating - Genitourinary Genitourinary: denies: Dysuria, Frequency, Urgency, Hematuria - Musculoskeletal Musculoskeletal: denies: Muscle pain, Back pain, Muscle aches, Stiffness - Integumentary Integumentary: denies: Rash, Pruritis, Lesions, Dryness - Neurological Neurological: denies: General weakness, Focal weakness, Headache, Dizziness - Psychiatric Psychiatric: denies: Depression, Anxiety - Endocrine Endocrine: denies: Polyuria, Polydypsia - Hematologic/Lymphatic Hematologic/Lymphatic: denies: Anemia, Bruising Prior Level of Functionality: She is independent of activities of daily living Exam - Vital Signs Vital Signs: Vital Signs x48h Temp Pulse Resp BP Pulse Ox 10/20/19 04:22 36.5 C 70 15 134/80 H 100 10/20/19 02:44 72 15 158/99 H 100 10/20/19 01:38 62 15 189/103 H 99 10/20/19 01:21 37.2 C 86 17 157/95 H 97 - Physical Exam General Appearance: positive: Alert, Mild distress, Moderate distress, Other (drowsy after pain medication) Eyes Bilateral: positive: Normal inspection, PERRL, EOMI ENT: positive: ENT inspection nml, No signs of dehydration Neck: positive: Nml inspection, No JVD, Trachea midline Respiratory: positive: Chest non-tender, No respiratory distress, Breath sounds nml. negative: Wheezes, Rales, Rhonchi Cardiovascular: positive: Regular rate & rhythm Abdomen: positive: Non-tender, Nml bowel sounds, Other (bloated) Back: positive: Nml inspection Skin: positive: Color nml, No rash, Warm, Dry Extremities: positive: Non-tender, Full ROM, Nml appearance Neurologic/Psychiatric: positive: Oriented x3, Motor nml, Sensation nml Conclusion/Plan - Problem List (1) Partial small bowel obstruction Conclusion/Plan: IV hydration with normal saline Pain management with morphine IV Zofran for nausea. Clear liquids with plan to advance as tolerated If patient's symptoms worsen will consult general surgery. (2) Ovarian cancer Conclusion/Plan: Currently on a pill lynparza. She follows with Dr Jaspreet Alvarado. Recheck of CA-125 is due in 2 weeks. If it is more elevated than the previous result, patient would start IV chemotherapy again Qualifiers: Laterality: unspecified laterality Qualified Code(s): C56.9 - Malignant neoplasm of unspecified ovary (3) Hypertension Conclusion/Plan: Resume metoprolol once verified (4) Diabetes mellitus Conclusion/Plan: SSI, Accu checks Qualifiers: Diabetes mellitus type: type 2 Diabetes mellitus detention insulin use: with intermediate frame tender use (5) Hyperlipidemia Conclusion/Plan: Patient on pravastatin. Will resume once verified - Lab Results Fish Bones: 10/20/19 01:35 10/20/19 01:35 Core Measures - Anticipated LOS I expect patient to be DC'd or transferred within 96 hours.: Yes - DVT/VTE - Prophylaxis VTE/DVT Device ordered at admit?: Yes VTE/DVT Prophylaxis med ordered at admit?: Yes
[2019-10-20] MEDS ORDERED: SODIUM CHLORIDE 0.9% 1,000 ML IV SCH (05:00)
[2019-10-20] MEDS ORDERED: PANTOPRAZOLE 40 MG VIAL IVP SCH (07:00)
[2019-10-20] MEDS ORDERED: METOCLOPRAMIDE 10 MG/2 ML VIAL IVP PRN (08:23)
[2019-10-20] MEDS ORDERED: ENOXAPARIN 40 MG/0.4 ML SYRINGE SUBQ SCH (09:00)
[2019-10-20] MEDS ORDERED: METOPROLOL SUCCINATE 50 MG TABLET PO SCH (09:00)
[2019-10-20] MEDS ORDERED: OLAPARIB 150 MG PO SCH (09:00)
[2019-10-20] MEDS ORDERED: LOSARTAN 50 MG TABLET PO SCH (09:00)
[2019-10-20] MEDS: INSULIN ASPART 300 UNIT/3 ML PEN SUBQ SCH ×3 (09:08→16:35)
[2019-10-20] MEDS: SODIUM CHLORIDE 0.9% 1,000 ML IV SCH ×2 (09:09→13:50)
[2019-10-20 10:02] LABS: HB2 TOTAL 12.6 g/dL; HEMOGLOBIN A1C 0.7 g/dL; HEMOGLOBIN A1C % 7.2 % (4.6-6.2)
--- NOTE | 2019-10-20 13:25 | XRAY Report ---
Reason: partial SBO Procedure Date: 10/20/2019 Accession Number: [id number] / [id number] Procedure: XR - Abdomen 2 View X-Ray CPT Code: 38359 Final Report FULL RESULT: EXAM: ABDOMEN RADIOGRAPHY EXAM DATE: 10/20/2019 11:11 AM. CLINICAL HISTORY: Partial SBO. COMPARISON: XR ABDOMEN SINGLE AP VIEW 04/24/2019 1:24 AM ABDOMEN/PELVIS W/ 10/20/2019 2:51 AM. TECHNIQUE: 2 views. FINDINGS: Lung Bases: Lung base is not included in the [id number]. Bowel Gas Pattern: There are multiple air-fluid levels within small bowel loops on upright imaging. The small bowel appears mildly dilated. No discrete transition zone is identified. There is scattered gas within the transverse colon. Free Air: Limited assessment for free air because the top of the diaphragms not included in the [id number]. Other: None. IMPRESSION: 1. Multiple small bowel air-fluid levels with mild dilation, without a focal transition zone. Question resolving distal partial small bowel obstruction versus ileus. RADIA
[2019-10-20] MEDS: SODIUM CHLORIDE FLUSH 0.9% 10 ML SYRINGE IVP SCH ×2 (13:51→16:36)
--- NOTE | 2019-10-20 17:51 | Discharge Plan ---
Discharge Plan Problem Reviewed?: Yes Disposition: Home, Self Care Condition: Poor Diet: Diabetic Activity Restrictions: Activity as Tolerated Shower Restrictions: No (fall precaution) Instruction Topics: Obstruction Sm Bowel Health Concerns: partial small bowel obstruction, elevated A1C Plan of Treatment: you has no more nausea, vomiting. you tolerate diet, and you have couple times of bowel movement today, and you really want to go to home today. your partial small bowel obstruction is resolved at this point. Please followup your PCP and your oncologist appointment. Should your symptoms return or worse, you may present ER or call 911 for help. Your A1C is 7.2 today and your glucose level is controlled, you decline any meds, and you would like your PCP to manage for, please followup PCP continue to manage it. Care Goals: stabilization and improvement Assessment: your partial small bowel obstruction is clinically resolved. you agree the care plan Additional Instructions or Follow Up instructions: you may followup your PCP in one week, followup your oncologist appointment as your schedule. Should your symptoms return or worsen, you may present ER or call 911 for help. No Smoking: If you smoke, Please STOP! Call for help. Follow-up with: Lexi Garcia DO [Primary Care Provider] -
--- NOTE | 2019-10-20 18:06 | DISCHARGE SUMMARY ---
Discharge Summary Admit Date: 10/20/19 Discharge Date: 10/20/19 Discharging Provider: VILLAFUERTE Primary Care Provider: Jennifer Lynn Condition at Discharge: Poor Discharge Disposition: 01 Home, Self Care Discharge Facility Name: home - DIAGNOSES Admission Diagnoses: (1) Partial small bowel obstruction (2) Ovarian cancer (3) Hypertension (4) Diabetes mellitus (5) Hyperlipidemia Discharge Diagnoses with Status of Each Condition: 1) Partial small bowel obstruction resolved. pt has no more nausea, vomiting. pt tolerate regular diet, she ate 75% of her lunch. she had bowel movement. her acute abdominal pain is resolved. she has chronic abdominal discomfort, which is likely from her ovarian cancer. pt is still chemotherapy (2) Ovarian cancer stable, pt has appointment on next week to see her OBGYN/oncologist. pt is still chemotherapy (3) Hypertension stable (4) Diabetes mellitus stable. pt has 7.2 A1C today, glucose is controlled. pt report her A1C has been up and down. she did not take any diabetes meds in the home. she decline to have diabetes meds for her d/c. she like her PCP manage for her (5) Hyperlipidemia stable (6) diarrhea stable. pt had couple time of diarrhea with loose stool today. C.Dif test is negative. pt report she has chronic cycle with constipation then diarrhea, then her stool become normal. she decline any medical intervention at this time. - HPI History of Present Illness: refer from Dr. Paz's HPI on 10/20/19 Patient is a 59 y/o female who presented to the ED with abdominal pain/cramping. Her symptoms started around 9pm on 10/19/19 after she had gone to the bathroom. She was nauseous and vomited 3 times at home. She waited with the hopes of her symptoms resolving but it got worse so she came to the ED to be evaluated. She also complains of bloating. She vomited once in the ED after being given contrast to drink. She denies chest pain, dyspnea or fever. She has history of ovarian cancer s/p hysterectomy, omentum removal and sigmoid colon resection. She is currently on a chemotherapy pill (lynparza). She follows with Dr Jaspreet Alvarado. CT of the abdomen done showed a partial small bowel obstruction. As a result she is being admitted for further treatment. - HOSPITAL COURSE Hospital Course: pt was admitted for N/V and abdominal pain. pt was found to have partial small obstruction. after treatment in hospital, pt tolerate regular diet, no more nausea, vomiting, acute abdominal pain is resolved. pt had bowel movement in the hospital. pt strongly request d/c to home. the detail hospital course is as the below. 1) Partial small bowel obstruction resolved. pt has no more nausea, vomiting. pt tolerate regular diet, she ate 75% of her lunch. she had bowel movement. her acute abdominal pain is resolved. she has chronic abdominal discomfort, which is likely from her ovarian cancer. pt is still chemotherapy (2) Ovarian cancer stable, pt has appointment on next week to see her OBGYN/oncologist. pt is still chemotherapy (3) Hypertension stable (4) Diabetes mellitus stable. pt has 7.2 A1C today, glucose is controlled. pt report her A1C has been up and down. she did not take any diabetes meds in the home. she decline to have diabetes meds for her d/c. she like her PCP manage for her (5) Hyperlipidemia stable (6) diarrhea stable. pt had couple time of diarrhea with loose stool today. C.Dif test is negative. pt report she has chronic cycle with constipation then diarrhea, then her stool become normal. she decline any medical intervention at this time. - ALLERGIES Allergies/Adverse Reactions: Allergies Allergy/AdvReac Type Severity Reaction Status Date / Time paclitaxel [From Taxol] Allergy Severe Anaphylaxis Verified 10/20/19 01:23 cefdinir AdvReac Severe Nausea Verified 10/20/19 01:23 clindamycin AdvReac Severe Nausea Verified 10/20/19 01:23 levofloxacin AdvReac Intermediate Nausea Verified 10/20/19 01:23 sulfamethoxazole AdvReac Intermediate Hallucinati Verified 10/20/19 01:23 [From Bactrim] ons meloxicam AdvReac Mild Nausea Verified 10/20/19 01:23 Penicillins AdvReac Mild Nausea Verified 10/20/19 01:23 metformin AdvReac severe abd Verified 10/20/19 01:23 pain - MEDICATIONS Home Medications: Ambulatory Orders Medication Instructions Recorded Confirmed Cholecalciferol (Vitamin D3) 5,000 unit PO DAILY 04/27/17 10/20/19 [Vitamin D3] Metoprolol Succinate [Toprol Xl] 100 mg PO DAILY PM 04/27/17 10/20/19 Pravastatin [Pravachol] 40 mg PO DAILY PM 04/27/17 10/20/19 Omeprazole 20 mg PO DAILY 03/20/19 10/20/19 Ondansetron [Ondansetron Odt] 8 mg PO BID PRN 03/20/19 10/20/19 Losartan [Cozaar] 100 mg PO DAILY 10/20/19 10/20/19 Olaparib [Lynparza] 300 mg PO BID 10/20/19 10/20/19 amLODIPine [Norvasc] 5 mg PO DAILY 10/20/19 10/20/19 - PHYSICAL EXAM AT DISCHARGE General Appearance: positive: No acute distress, Alert. negative: Lethargic Eyes Bilateral: positive: Normal inspection, PERRL, No lid inflammation ENT: positive: ENT inspection nml, Pharynx nml, No signs of dehydration. negative: Purulent nasal drainage Neck: positive: Nml inspection, Thyroid nml, No JVD, Trachea midline. negative: Thyromegaly, Lymphadenopathy (R), Lymphadenopathy (L), Stiff neck, Tracheal deviation Respiratory: positive: Chest non-tender, No respiratory distress, Breath sounds nml. negative: Wheezes, Rales, Rhonchi Cardiovascular: positive: Regular rate & rhythm, No murmur, No gallop. negative: Irregularly irregular, Extrasystoles, Tachycardia, Bradycardia, Systolic murmur, Diastolic murmur Peripheral Pulses: positive: 2+ Abdomen: positive: Non-tender, No organomegaly, Nml bowel sounds, No distention. negative: Tenderness, Guarding, Rebound Back: positive: Nml inspection. negative: CVA tenderness (R), CVA tenderness (L) Skin: positive: Color nml, No rash, Warm, Dry. negative: Cyanosis, Diaphoresis, Pallor Extremities: positive: Non-tender, Full ROM, Nml appearance. negative: Calf tenderness, Ole's sign/cords Neurologic/Psychiatric: positive: Oriented x3, Motor nml, Sensation nml, Mood/a ffect nml. negative: Weakness, Sensory loss, Facial droop, Slurred/abnml speech, Depressed mood/affect - LABS Result Diagrams: 10/20/19 01:35 10/20/19 01:35 - FOLLOW UP Follow Up: you has no more nausea, vomiting. you tolerate diet, and you have couple times of bowel movement today, and you really want to go to home today. your partial small bowel obstruction is resolved at this point. Please followup your PCP and your oncologist appointment. Should your symptoms return or worse, you may present ER or call 911 for help. Your A1C is 7.2 today and your glucose level is controlled, you decline any meds, and you would like your PCP to manage for, please followup PCP continue to manage it. you may followup your PCP in one week, followup your oncologist appointment as your schedule. Should your symptoms return or worsen, you may present ER or call 911 for help. - TIME SPENT Time Spent in Discharge (Minutes): 50
[2019-10-20 18:20] VITALS: BP 139/74
== END 2019-10-20 18:20 | disposition home or self-care (01) ==
LOC: ED 01:12 → MS2 04:22
PROVIDERS: ADMIT Internal Medicine; ATTEND Nurse Practitioner Gerontology
DX: K56.609 Unspecified intestinal obstruction, unspecified as to partial versus complete obstruction (principal); C56.9 Malignant neoplasm of unspecified ovary; I10 Essential (primary) hypertension; E11.9 Type 2 diabetes mellitus without complications; K21.9 Gastro-esophageal reflux disease without esophagitis; E78.5 Hyperlipidemia, unspecified; G89.29 Other chronic pain; R10.9 Unspecified abdominal pain; R19.7 Diarrhea, unspecified; M19.90 Unspecified osteoarthritis, unspecified site; Z79.891 Long term (current) use of opiate analgesic; Z79.4 Long term (current) use of insulin; Z79.899 Other long term (current) drug therapy; Z90.710 Acquired absence of both cervix and uterus; Z90.722 Acquired absence of ovaries, bilateral; Z90.49 Acquired absence of other specified parts of digestive tract
CPT/HCPCS: 36415; 74019; 74177; 80053; 83036; 83605; 83690; 85025; 87493; 96361; 96365; 96375; 99284; 99285; A9270; G0378; J1170; J1650; J7040; Q9967

== ENCOUNTER 2019-10-22 14:40 | Outpatient (CLI) | payer BC | END 2019-10-22 23:59 | disposition home or self-care (01) | LOC: LAB.R 14:40 | PROVIDERS: ATTEND Family Medicine | DX: N39.0 Urinary tract infection, site not specified (principal) | CPT/HCPCS: 87086; 87181 ==

== ENCOUNTER 2019-10-31 14:31 | Outpatient (CLI) | payer BC ==
[2019-10-31 15:01] LABS: BASOPHILS # (AUTO) 0.1 10^3/uL (0.0-0.1); BASOPHILS % (AUTO) 0.6 %; EOSINOPHILS # (AUTO) 0.2 10^3/uL (0.0-0.7); EOSINOPHILS % (AUTO) 2.4 %; HGB - HEMOGLOBIN 12.7 g/dL (12.0-16.0); LYMPHOCYTES # (AUTO) 1.1 10^3/uL (1.5-3.5); LYMPHOCYTES % (AUTO) 13.9 %; MEAN CORPUSCULAR HEMOGLOBIN 34.5 pg (27.0-31.0); MEAN CORPUSCULAR HGB CONC 34.4 g/dL (32.0-36.0); MEAN CORPUSCULAR VOLUME 100.3 fL (81.0-99.0); MEAN PLATELET VOLUME 9.4 fL (7.9-10.8); MONOCYTES # (AUTO) 0.8 10^3/uL (0.0-1.0); MONOCYTES % (AUTO) 9.7 %; NEUTROPHILS % (AUTO) 72.5 %; PLT - PLATELET COUNT 197 10^3/uL (130-450); RED BLOOD COUNT 3.68 10^6/uL (4.20-5.40); RED CELL DISTRIBUTION WIDTH 16.3 % (12.0-15.0); WHITE BLOOD COUNT 8.2 x10^3/uL (4.8-10.8)
[2019-10-31 15:22] LABS: ALBUMIN 4.7 g/dL (3.2-5.5); ALBUMIN/GLOBULIN RATIO 1.6 (1.0-2.2); CALCIUM 8.8 mg/dL (8.5-10.3); CREATININE 1.2 mg/dL (0.4-1.0); TOTAL PROTEIN 7.6 g/dL (6.7-8.2)
== END 2019-10-31 14:32 | disposition home or self-care (01) ==
LOC: LAB 14:31
PROVIDERS: ATTEND Specialist
DX: C56.9 Malignant neoplasm of unspecified ovary (principal)
CPT/HCPCS: 36415; 80053; 85025; 86304

== ENCOUNTER 2019-11-05 09:00 | Outpatient (CLI) | payer BC | END 2019-11-05 23:59 | disposition home or self-care (01) | LOC: LAB.WCP 09:00 | PROVIDERS: ATTEND Nurse Practitioner Family | DX: N39.0 Urinary tract infection, site not specified (principal) | CPT/HCPCS: 87086; 87181 ==

== ENCOUNTER 2019-12-24 21:57 | Emergency (ER) | payer BC, OTHER ==
--- NOTE | 2019-12-24 22:57 | ED Physician Documentation ---
History of Present Illness - Stated complaint Stated Complaint: ABD/GROIN PAIN - Chief complaint Chief Complaint: Abd Pain - History obtained from History obtained from: Patient (Patient is a 59-year-old female brought in by family with a Significant past medical history of ovarian cancer with metastasis currently on chemotherapy with a chief complaint of abdominal pain, She also reports that currently she is being treated for urinary tract infection with MacrobidAnd she is also taking phenazopyridine for symptomatic relief. She reports that she thinks she has a small bowel obstruction. She reports she is had previous bowel obstructions she has had a previous abdominal laparotomy and has had multiple small bowel obstructions she is unsure the name of the surgeon who did these. She denies fevers or dysuria or chest pain or shortness of breath she does report that she has not had a bowel movement in 2 days and now is unable to pass gas.) Review of Systems Constitutional: reports: Reviewed and negative Eyes: reports: Reviewed and negative Ears: reports: Reviewed and negative Nose: reports: Reviewed and negative Throat: reports: Reviewed and negative Cardiac: reports: Reviewed and negative Respiratory: reports: Reviewed and negative GI: reports: Abdominal Pain, Nausea, Vomiting, Reviewed and negative : reports: Reviewed and negative Skin: reports: Reviewed and negative Musculoskeletal: reports: Reviewed and negative Neurologic: reports: Reviewed and negative Psychiatric: reports: Reviewed and negative Endocrine: reports: Reviewed and negative Immunocompromised: reports: Reviewed and negative PD PAST MEDICAL HISTORY - Past Medical History Past Medical History: Yes Cardiovascular: Hypertension Respiratory: None Neuro: None Endocrine/Autoimmune: Type 2 diabetes GI: GERD, 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 : None HEENT: None Psych: None Musculoskeletal: Osteoarthritis Derm: None Other Past Medical History: return of ovarian cancer - Past Surgical History Past Surgical History: Yes General: Cholecystectomy /COIL [employer] 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: Hysterectomy, Oophrectomy, Other - Present Medications Home Medications: Ambulatory Orders Medication Instructions Recorded Confirmed Cholecalciferol (Vitamin D3) 5,000 unit PO DAILY 04/27/17 10/20/19 [Vitamin D3] Metoprolol Succinate [Toprol Xl] 100 mg PO DAILY PM 04/27/17 10/20/19 Pravastatin [Pravachol] 40 mg PO DAILY PM 04/27/17 10/20/19 Omeprazole 20 mg PO DAILY 03/20/19 10/20/19 Ondansetron [Ondansetron Odt] 8 mg PO BID PRN 03/20/19 10/20/19 Losartan [Cozaar] 100 mg PO DAILY 10/20/19 10/20/19 Olaparib [Lynparza] 300 mg PO BID 10/20/19 10/20/19 amLODIPine [Norvasc] 5 mg PO DAILY 10/20/19 10/20/19 LORazepam [Ativan] 0.5 mg PO Q6H PRN 12/21/19 12/21/19 Lidocaine/Prilocain 2.5% Cream 30 gm TOP 12/21/19 [Emla 2.5% Cream] Ondansetron [Ondansetron Odt] 4 mg PO Q4H PRN 12/21/19 12/21/19 Prochlorperazine Maleate 10 mg PO Q4HR PRN 12/21/19 12/21/19 [Compazine] - Allergies Allergies/Adverse Reactions: Allergies Allergy/AdvReac Type Severity Reaction Status Date / Time paclitaxel [From Taxol] Allergy Severe Anaphylaxis Verified 10/20/19 01:23 cefdinir AdvReac Severe Nausea Verified 10/20/19 01:23 clindamycin AdvReac Severe Nausea Verified 10/20/19 01:23 levofloxacin AdvReac Intermediate Nausea Verified 10/20/19 01:23 sulfamethoxazole AdvReac Intermediate Hallucinati Verified 10/20/19 01:23 [From Bactrim] ons meloxicam AdvReac Mild Nausea Verified 10/20/19 01:23 Penicillins AdvReac Mild Nausea Verified 10/20/19 01:23 metformin AdvReac severe abd Verified 10/20/19 01:23 pain - Social History Does the pt smoke?: No Smoking Status: Never smoker Does the pt drink ETOH?: No Does the pt have substance abuse?: No - Immunizations Immunizations are current?: Yes - POLST Patient has POLST: No POLST Status: Full Code PD ED PE NORMAL - Vitals Vital signs reviewed: Yes - General General: Alert and oriented X 3, No acute distress - HEENT HEENT: PERRL - Neck Neck: Supple, no meningeal sign - Cardiac Cardiac: RRR, No murmur - Respiratory Respiratory: Clear bilaterally - Abdomen Abdomen: Other (The abdomen is obese, soft it is mildly distended with decreased and diminished bowel sounds there is no midline abdominal pulsatile mass the abdomen is diffusely tender to palpation.) - Derm Derm: Warm and dry - Extremities Extremities: No deformity - Neuro Neuro: Alert and oriented X 3 - Psych Psych: Normal mood, Normal affect Results - Vitals Vitals: Vital Signs - 24 hr 12/24/19 12/25/19 22:09 02:40 Temperature 36.5 C 36.5 C Heart Rate 84 79 Respiratory 20 20 Rate Blood Pressure 182/104 H 155/88 H O2 Saturation 97 93 Oxygen O2 Source Room air - Labs Labs: Laboratory Tests 12/24/19 12/24/19 12/24/19 23:38 23:38 23:38 WBC 15.4 H RBC 4.48 Hgb 14.5 Hct 42.7 MCV 95.3 MCH 32.4 H MCHC 34.0 RDW 13.2 Plt Count 227 MPV 9.6 Neut # (Auto) 13.7 H Lymph # (Auto) 0.9 L Daggett # (Auto) 0.6 Eos # (Auto) 0.0 Baso # (Auto) 0.0 Absolute Nucleated RBC 0.00 Nucleated RBC % 0.0 PT 13.1 H INR 1.2 APTT 24.6 L Sodium 136 Potassium 3.7 Chloride 95 L Carbon Dioxide 27 Anion Gap 14.0 H BUN 20 Creatinine 0.8 Estimated GFR (MDRD) 73 L Glucose 278 H Lactic Acid Calcium 10.0 Total Bilirubin 1.6 H AST 18 ALT 21 Alkaline Phosphatase 77 Total Creatine Kinase 15 L Total Protein 8.0 Albumin 4.4 Globulin 3.6 Albumin/Globulin Ratio 1.2 Lipase 35 Urine Color Urine Clarity Urine pH Ur Specific [place] Urine Protein Urine Glucose (UA) Urine Ketones Urine Occult Blood Urine Nitrite Urine Bilirubin Urine Urobilinogen Ur Leukocyte Esterase Urine RBC Urine WBC Ur Squamous Epith Cells Urine Bacteria Urine Mucus Ur Microscopic Review Urine Culture Comments 12/24/19 12/25/19 23:38 00:20 WBC RBC Hgb Hct MCV MCH MCHC RDW Plt Count MPV Neut # (Auto) Lymph # (Auto) Daggett # (Auto) Eos # (Auto) Baso # (Auto) Absolute Nucleated RBC Nucleated RBC % PT INR APTT Sodium Potassium Chloride Carbon Dioxide Anion Gap BUN Creatinine Estimated GFR (MDRD) Glucose Lactic Acid 1.2 Calcium Total Bilirubin AST ALT Alkaline Phosphatase Total Creatine Kinase Total Protein Albumin Globulin Albumin/Globulin Ratio Lipase Urine Color ORANGE Urine Clarity CLEAR Urine pH Ur Specific [place] Urine Protein Urine Glucose (UA) Urine Ketones Urine Occult Blood NEGATIVE Urine Nitrite Urine Bilirubin NEGATIVE Urine Urobilinogen Ur Leukocyte Esterase Urine RBC 0-5 Urine WBC 0-3 Ur Squamous Epith Cells FEW Squamous Urine Bacteria Rare Urine Mucus Few Strands Ur Microscopic Review INDICATED Urine Culture Comments NOT INDICATED PD MEDICAL DECISION MAKING - ED course Complexity details: other (04:12 am patient Reevaluated she is afebrile she reports she is feeling much better she is tolerated p.o. challenge her abdominal pain is improved I am still unsure of the etiology of her discomfort however the patient would like to be discharged home I did offer admission to this patient for observation and further evaluation and testing however she would like to be discharged home at this time she has chemotherapy beginning on next Friday she should return to the emergency department with any concerns and follow-up with her primary care provider on Friday patient does have medical decision-making capability and capacity and would like to be discharged home.) Departure - Departure Disposition: Home, Self Care Clinical Impression: Abdominal pain Qualifiers: Abdominal location: generalized Qualified Code(s): R10.84 - Generalized abdominal pain Vomiting Qualifiers: Vomiting type: unspecified Vomiting Intractability: unspecified Nausea presence: unspecified Qualified Code(s): R11.10 - Vomiting, unspecified Leukocytosis Qualifiers: Leukocytosis type: unspecified Qualified Code(s): D72.829 - Elevated white blood cell count, unspecified Condition: Good Instructions: ED Abdominal Pain Unkn Cause Follow-Up: Lexi Garcia DO [Primary Care Provider] -
[2019-12-24] MEDS ORDERED: HYDROmorphone 2 MG/ML VIAL IVP STA (23:08)
[2019-12-24] MEDS ORDERED: SODIUM CHLORIDE 0.9% 1,000 ML IV ONE (23:08)
[2019-12-24] MEDS ORDERED: ONDANSETRON 4 MG/2 ML VIAL IVP STA (23:08)
[2019-12-24] MEDS ORDERED: IOVERSOL 320 100 ML VIAL IVP ONE (23:22)
[2019-12-24 23:47] LABS: BASOPHILS % (AUTO) 0.3 %; EOSINOPHILS % (AUTO) 0.1 %; HGB - HEMOGLOBIN 14.5 g/dL (12.0-16.0); LYMPHOCYTES # (AUTO) 0.9 10^3/uL (1.5-3.5); MEAN CORPUSCULAR HEMOGLOBIN 32.4 pg (27.0-31.0); MEAN CORPUSCULAR VOLUME 95.3 fL (81.0-99.0); MEAN PLATELET VOLUME 9.6 fL (7.9-10.8); MONOCYTES # (AUTO) 0.6 10^3/uL (0.0-1.0); MONOCYTES % (AUTO) 3.8 %; NEUTROPHILS # (AUTO) 13.7 10^3/uL (1.5-6.6); NEUTROPHILS % (AUTO) 88.8 %; PLT - PLATELET COUNT 227 10^3/uL (130-450); RED BLOOD COUNT 4.48 10^6/uL (4.20-5.40); RED CELL DISTRIBUTION WIDTH 13.2 % (12.0-15.0); WHITE BLOOD COUNT 15.4 x10^3/uL (4.8-10.8)
[2019-12-24 23:55] LABS: INR 1.2 (0.8-1.2); PT - PROTHROMBIN TIME 13.1 secs (9.9-12.6)
[2019-12-25 00:02] LABS: ALBUMIN 4.4 g/dL (3.2-5.5); ALBUMIN/GLOBULIN RATIO 1.2 (1.0-2.2); BILIRUBIN,TOTAL 1.6 mg/dL (0.2-1.0); CREATININE 0.8 mg/dL (0.4-1.0)
[2019-12-25 00:03] LABS: PARTIAL THROMBOPLASTIN TIME 24.6 secs (24.9-33.3)
[2019-12-25 00:30] LABS: OCCULT BLOOD,URINE NEGATIVE (NEGATIVE)
[2019-12-25 00:38] LABS: CLARITY,URINE CLEAR (CLEAR)
[2019-12-25 00:39] LABS: BILIRUBIN,URINE NEGATIVE (NEGATIVE); ICTOTEST,URINE NEGATIVE
[2019-12-25] MEDS ORDERED: IOVERSOL 320 100 ML VIAL IVP ONE (00:43)
[2019-12-25 00:44] LABS: BACTERIA,URINE Rare /HPF (None Seen); MUCUS,URINE Few Strands; RBC,URINE 0-5 /HPF (0-5); SQUAMOUS EPITHELIAL CELL,UR FEW Squamous (<= Few)
--- NOTE | 2019-12-25 01:00 | CT Report ---
Reason: BOWEL OBSTRUCTION Procedure Date: 12/25/2019 Accession Number: [id number] / [id number] Procedure: CT - Abdomen/Pelvis W CPT Code: Final Report FULL RESULT: EXAM: CT ABDOMEN AND PELVIS EXAM DATE: 12/25/2019 12:40 AM. CLINICAL HISTORY: BOWEL OBSTRUCTION. COMPARISONS: ABDOMEN/PELVIS W/ 10/20/2019 2:51 AM. TECHNIQUE: Routine helical CT imaging was performed through the abdomen and pelvis. IV contrast: OPTI 320 100ML. Enteric contrast: No. Reconstructions: Coronal and sagittal. In accordance with CT protocol optimization, one or more of the following dose reduction techniques were utilized for this exam: automated exposure control, adjustment of mA and/or KV based on patient size, or use of iterative reconstructive technique. FINDINGS: Lung Bases: There is a small new right-sided pleural effusion with contiguous atelectasis. Liver: Normal. No masses. Gallbladder/Bile Ducts: Resected Spleen: Normal. Pancreas: Normal. Adrenal Glands: Normal. Kidneys: Normal. No masses or hydronephrosis. Peritoneal Cavity/Bowel: Compared to the prior study a moderate to large amount of ascites has developed within the abdomen and pelvis. There is no small bowel distention yet there are several loops of small bowel with hyperemia of the plummer. Several of the small bowel loops appear somewhat clumped in the anterior mid pelvis and there is either a knuckle of bowel or the is a subtle enhancing nodule in the umbilicus. It is more likely a small enhancing nodule. There is subtle peritoneal nodularity. There is soft tissue thickening along the left anterior abdominal wall. There is slight stranding of the mesentery. Pelvic Organs: The uterus and adnexa have been resected. The bowel is unremarkable. Vasculature: No aneurysms or other significant abnormality. Bones: No significant abnormality. Other: None. IMPRESSION: 1. Abdominal and pelvic ascites new compared to the prior study. Subtle tumor nodularity of the peritoneum and some soft tissue thickening of the peritoneum below the anterior abdominal wall in the left upper quadrant. 2. There is an aggregation or clump of small bowel in the anterior mid pelvis contiguous with an enhancing nodule in the umbilicus. 3. New small right-sided pleural effusion. RADIA
[2019-12-25] MEDS ORDERED: HYDROmorphone 1 MG/ML CARPUJECT IVP STA (01:42)
[2019-12-25] MEDS ORDERED: ONDANSETRON 4 MG/2 ML VIAL IVP STA (01:43)
[2019-12-25] MEDS ORDERED: CIPROFLOXACIN 400 MG/200 ML 200 ML IV ONE (02:49)
[2019-12-25] MEDS ORDERED: PROMETHAZINE INJ 25 MG in SODIUM CHLORIDE 0.9% 50 ML IV STA (03:27)
[2019-12-25 04:26] VITALS: BP 111/66
== END 2019-12-25 04:38 | disposition home or self-care (01) ==
LOC: ED 21:57
DX: R10.84 Generalized abdominal pain (principal); R11.10 Vomiting, unspecified; D72.829 Elevated white blood cell count, unspecified; E11.9 Type 2 diabetes mellitus without complications; I10 Essential (primary) hypertension
CPT/HCPCS: 36415; 74177; 80053; 81001; 82550; 83605; 83690; 85025; 85610; 85730; 96361; 96374; 96375; 96376; 99284; J1170; J7040; Q9967; 81003; 87086

== ENCOUNTER 2020-04-13 09:51 | Outpatient (CLI) | payer OTHER ==
[2020-04-13] MEDS ORDERED: IOVERSOL 320 50 ML VIAL ONE (09:59)
[2020-04-13] MEDS ORDERED: IOVERSOL 320 100 ML VIAL IVP ONE ×2 (09:59→12:16)
[2020-04-13] MEDS ORDERED: IOVERSOL 320 50 ML VIAL PO ONE (12:16)
--- NOTE | 2020-04-15 08:10 | CT Report ---
Reason: OVARIAN CANCER Procedure Date: 04/13/2020 Accession Number: [id number] / [id number] Procedure: CT - Abdomen/Pelvis W CPT Code: Final Report FULL RESULT: EXAM: CT ABDOMEN AND PELVIS EXAM DATE: 04/13/2020 11:44 AM. CLINICAL HISTORY: Ovarian cancer. COMPARISONS: ABDOMEN/PELVIS W/ 12/25/2019 12:30 AM ABDOMEN/PELVIS W/ 10/20/2019 2:51 AM ABDOMEN/PELVIS W/ 04/23/2019 6:44 PM ABDOMEN/PELVIS W/O 10/24/2018 7:58 PM. TECHNIQUE: Routine helical CT imaging was performed through the abdomen and pelvis. IV contrast: 100 mL of Optiray 320. Enteric contrast: Positive. Reconstructions: Coronal and sagittal. In accordance with CT protocol optimization, one or more of the following dose reduction techniques were utilized for this exam: automated exposure control, adjustment of mA and/or KV based on patient size, or use of iterative reconstructive technique. FINDINGS: Lung Bases: Increase in size of moderate to large right pleural effusion with adjacent right basilar opacity. Heart size is stable. Catheter is seen in the upper right atrium. Liver: No hepatic lesions. Patent portal vein. Mild fatty liver. Patent hepatic veins. Slight decrease in size of perihepatic free fluid. Gallbladder/Bile Ducts: Status post cholecystectomy. No biliary ductal dilatation. Spleen: Normal. Pancreas: Normal. Adrenal Glands: Normal. Kidneys: Normal. No masses or hydronephrosis. Peritoneal Cavity/Bowel: Stomach is mildly distended. No evidence of small bowel obstruction. Distal small bowel not opacified with contrast. Small to moderate volume of stool in the colon. No free air. No diverticulitis. Small to moderate volume of abdominal ascites is again seen although decreased in volume. There is enhancement of the peritoneum and thickening and nodularity of the omentum largely along the left anterior abdomen. Ventral hernia noted on image 43 series 3. Nodule and thickening in the umbilicus is again seen. There is omental thickening and also mesenteric thickening anteriorly and thickening along the margins of small bowel loops in the left as well as the right midabdomen overall appearance is not significantly changed. Stranding of the mesentery noted. Pelvic Organs: Urinary bladder is unremarkable. Uterus is absent. No pelvic adenopathy. No pelvic free fluid. Vasculature: No aneurysms or other significant abnormality. Bones: No osseous lesions. Grade 1/2 anterolisthesis of L5-S1 due to bilateral L5 pars interarticularis defects. Other: None. IMPRESSION: 1. Slight decrease in size of small to moderate volume of abdominal ascites. Mesenteric thickening and peritoneal nodularity and also along the omentum as well as the stomach and margins of the small bowel is overall similar in appearance. 2. Enhancing nodule/thickening of the umbilicus, unchanged. 3. No bowel obstruction. 4. Increase in size of moderate to large right pleural effusion. RADIA
== END 2020-04-13 09:52 | disposition home or self-care (01) ==
LOC: DI 09:51
PROVIDERS: ATTEND Internal Medicine Hematology & Oncology
DX: C56.9 Malignant neoplasm of unspecified ovary (principal); K66.8 Other specified disorders of peritoneum; R19.05 Periumbilic swelling, mass or lump; K43.9 Ventral hernia without obstruction or gangrene; J90 Pleural effusion, not elsewhere classified; Z90.49 Acquired absence of other specified parts of digestive tract; Z90.710 Acquired absence of both cervix and uterus
CPT/HCPCS: 74177; Q9967

== ENCOUNTER 2020-06-20 12:02 | Emergency (ER) | payer OTHER ==
[2020-06-20] MEDS ORDERED: SODIUM CHLORIDE 0.9% 1,000 ML IV STA ×2 (12:32→13:03)
[2020-06-20] MEDS ORDERED: metroNIDAZOLE 500 MG/100 ML 500 MG/100 ML BAG IV ONE (12:33)
[2020-06-20] MEDS ORDERED: cefTRIAXone 1 GM in SODIUM CHLORIDE 0.9% MINIBAG 100 ML IV STA (12:34)
[2020-06-20 12:41] LABS: BASOPHILS % (AUTO) 0.4 %; HGB - HEMOGLOBIN 12.2 g/dL (12.0-16.0); LYMPHOCYTES % (AUTO) 38.1 %; MEAN CORPUSCULAR HEMOGLOBIN 29.4 pg (27.0-31.0); MEAN CORPUSCULAR HGB CONC 31.9 g/dL (32.0-36.0); MEAN PLATELET VOLUME 11.2 fL (7.9-10.8); MONOCYTES % (AUTO) 11.6 %; NEUTROPHILS % (AUTO) 49.3 %; PLT - PLATELET COUNT 83 10^3/uL (130-450); RED BLOOD COUNT 4.15 10^6/uL (4.20-5.40); RED CELL DISTRIBUTION WIDTH 17.4 % (12.0-15.0); WHITE BLOOD COUNT 5.4 x10^3/uL (4.8-10.8)
[2020-06-20 12:58] LABS: ABNORMAL LYMPHS % (MANUAL) 0 %
[2020-06-20 13:01] LABS: BAND NEUTROPHILS % (MANUAL) 30 %; DIFFERENTIAL COMMENT MANUAL DIFFERENTIAL; LYMPHOCYTES # (MANUAL) 2.6 10^3/uL (1.5-3.5); LYMPHOCYTES % (MANUAL) 48 %; MONOCYTES # (MANUAL) 0.3 10^3/uL (0.0-1.0); PLATELET ESTIMATE, MANUAL DECREASED (<130,000) (NORMAL); PLATELET MORPHOLOGY NORMAL APPEARANCE (NORMAL)
[2020-06-20] MEDS ORDERED: IOVERSOL 320 100 ML VIAL IVP ONE ×2 (13:02→13:20)
[2020-06-20 13:05] LABS: ALBUMIN 3.8 g/dL (3.2-5.5); ALBUMIN/GLOBULIN RATIO 1.1 (1.0-2.2); BILIRUBIN,TOTAL 2.1 mg/dL (0.2-1.0); CALCIUM 9.6 mg/dL (8.5-10.3); CREATININE 3.1 mg/dL (0.4-1.0); TOTAL PROTEIN 7.3 g/dL (6.7-8.2)
--- NOTE | 2020-06-20 13:26 | ED Physician Documentation ---
PD HPI ABD PAIN - Stated complaint Stated Complaint: ABD PX - Chief complaint Chief Complaint: Abd Pain - History obtained from History obtained from: Patient, Family - History of Present Illness Timing - onset: How many days ago (2) Timing - duration: Days (2) Timing - details: Abrupt onset, Still present Quality: Sharp, Fullness/distended, Pain Location: All over / everywhere Improved by: Laying still Worsened by: Eating, Moving, Breathing, Position, Palpation Associated symptoms: Nausea Similar symptoms before: Diagnosis (Small bowel obstruction) Recently seen: Other - Additional information Additional information: 59-year-old female with recurrent ovarian cancer Has had her third recurrence she is now on her third type of chemotherapy and 2 days ago she developed abdominal pain worse in the left lower quadrant and this has progressively worsened. Today she is unable to stand. She did try to eat some food yesterday.She most recently received chemotherapy with Topol T can and a Avastin. She has worsening disease with worsening ascites and pleural effusion. She has had small bowel obstruction previously treated conservatively she was on TPN last year. Review of Systems Constitutional: denies: Fever Eyes: denies: Decreased vision Ears: denies: Ear pain Nose: denies: Congestion Throat: denies: Sore throat Cardiac: denies: Chest pain / pressure, Palpitations Respiratory: reports: Dyspnea. 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: Hysterectomy, Oophrectomy, Other - Present Medications Home Medications: Ambulatory Orders Medication Instructions Recorded Confirmed LORazepam [Ativan] 0.5 mg PO Q6H PRN 12/21/19 05/16/20 Prochlorperazine Maleate 10 mg PO Q4HR PRN 12/21/19 05/16/20 [Compazine] Losartan Potassium 100 mg PO DAILY 12/28/19 05/16/20 Metoprolol Tartrate 100 mg PO DAILY 12/28/19 05/16/20 Omeprazole 20 mg PO DAILY 12/28/19 05/16/20 Ondansetron [Ondansetron Odt] 8 mg PO BID 12/28/19 05/16/20 Pravastatin [Pravachol] 40 mg PO DAILY 12/28/19 05/16/20 Sertraline [Zoloft] 50 mg PO DAILY 12/28/19 05/16/20 OLANZapine [Zyprexa Zydis] 5 mg PO QPM PRN 01/03/20 05/16/20 Gabapentin 600 mg PO DAILY 01/25/20 05/16/20 Amlodipine Besylate 10 mg PO DAILY 03/07/20 05/16/20 - Allergies Allergies/Adverse Reactions: Allergies Allergy/AdvReac Type Severity Reaction Status Date / Time paclitaxel [From Taxol] Allergy Severe Anaphylaxis Verified 06/20/20 12:06 cefdinir AdvReac Severe Nausea Verified 06/20/20 12:06 clindamycin AdvReac Severe Nausea Verified 06/20/20 12:06 levofloxacin AdvReac Intermediate Nausea Verified 06/20/20 12:06 sulfamethoxazole AdvReac Intermediate Hallucinati Verified 06/20/20 12:06 [From Bactrim] ons meloxicam AdvReac Mild Nausea Verified 06/20/20 12:06 Penicillins AdvReac Mild Nausea Verified 06/20/20 12:06 metformin AdvReac severe abd Verified 06/20/20 12:06 pain - Social History Does the pt smoke?: No Smoking Status: Never smoker Does the pt drink ETOH?: No Does the pt have substance abuse?: No - Immunizations Immunizations are current?: Yes - POLST Patient has POLST: No POLST Status: Full Code PD ED PE NORMAL - Vitals Vital signs reviewed: Yes (Tachycardic and hypotensive) - General General: Other (The patient is pale and listless she is able to open her eyes and speak in 1-2 word sentences.) - HEENT HEENT: Atraumatic, PERRL, EOMI - Neck Neck: Supple, no meningeal sign, No bony TTP - Cardiac Cardiac: No murmur, Other - Respiratory Respiratory: No respiratory distress, Other (diminished breath sounds. ) - Abdomen Abdomen: Other (The abdomen is mildly distended it is firm there bowel sounds are absent and it is generally tender.) - Back Back: No CVA TTP, No spinal TTP - Derm Derm: Warm and dry, No rash, Other (pale ) - Extremities Extremities: No deformity, No edema - Neuro Neuro: psychology technician 2-12 intact, No motor deficit, No sensory deficit, Normal speech Eye Opening: To Voice Motor: Obeys Commands Verbal: Oriented GCS Score: 14 - Psych Psych: Normal mood, Normal affect Results - Vitals Vitals: Vital Signs - 24 hr 06/20/20 06/20/20 06/20/20 12:06 12:14 12:50 Temperature 36.6 C Heart Rate 136 H 134 H 132 H Respiratory 24 36 H 34 H Rate Blood Pressure 76/46 L 91/45 L 78/43 L O2 Saturation 100 98 97 06/20/20 06/20/20 06/20/20 13:14 13:44 14:44 Temperature Heart Rate 138 H 136 H 141 H Respiratory 28 H 28 H 33 H Rate Blood Pressure 86/64 L 80/58 L 84/54 L O2 Saturation 92 94 92 06/20/20 15:00 Temperature 37.5 C Heart Rate 146 H Respiratory 24 Rate Blood Pressure 88/62 L O2 Saturation 92 Oxygen O2 Source Room air - EKG (time done) 1228 Rate: Rate (enter#) (128) Rhythm: Sinus tachycardia Ischemia: Other (repolarization abnormalities) Compare to prior EKG: Old EKG unavailable Computer interpretation: Agree with computer - Labs Labs: Laboratory Tests 06/20/20 06/20/20 06/20/20 12:10 12:25 12:25 WBC 5.4 RBC 4.15 L Hgb 12.2 Hct 38.2 MCV 92.0 MCH 29.4 MCHC 31.9 L RDW 17.4 H Plt Count 83 L MPV 11.2 H Neut # (Auto) Not Reportable Lymph # (Auto) Not Reportable [place] # (Auto) Not Reportable Eos # (Auto) Not Reportable Baso # (Auto) Not Reportable Absolute Nucleated RBC Not Reportable Total Counted 100 Band Neuts % (Manual) 30 H Abnorm Lymph % (Manual) 0 Nucleated RBC % Not Reportable Neutrophils # (Manual) 2.5 Lymphocytes # (Manual) 2.6 Monocytes # (Manual) 0.3 Eosinophils # (Manual) 0.0 Basophils # (Manual) 0.0 Differential Comment MANUAL DIFFERENTIAL Manual Slide Review Indicated WBC Morphology NORMAL APPEARANCE Platelet Estimate DECREASED (<130,000) Platelet Morphology NORMAL APPEARANCE RBC Morph Micro Appear 1+ POLYCHROMASIA Sodium 137 Potassium 3.6 Chloride 98 L Carbon Dioxide 14 L Anion Gap 25.0 H BUN 29 H Creatinine 3.1 H Estimated GFR (MDRD) 15 L Glucose 298 H Lactic Acid > 10.0 H* Calcium 9.6 Total Bilirubin 2.1 H AST 26 ALT 16 Alkaline Phosphatase 50 Total Protein 7.3 Albumin 3.8 Globulin 3.5 Albumin/Globulin Ratio 1.1 Lipase 40 Urine Color Urine Clarity Urine pH Ur Specific [place] Urine Protein Urine Glucose (UA) Urine Ketones Urine Occult Blood Urine Nitrite Urine Bilirubin Urine Urobilinogen Ur Leukocyte Esterase Urine RBC Urine WBC Ur Squamous Epith Cells Urine Bacteria Urine Mucus Ur Microscopic Review Urine Culture Comments 06/20/20 13:20 WBC RBC Hgb Hct MCV MCH MCHC RDW Plt Count MPV Neut # (Auto) Lymph # (Auto) [place] # (Auto) Eos # (Auto) Baso # (Auto) Absolute Nucleated RBC Total Counted Band Neuts % (Manual) Abnorm Lymph % (Manual) Nucleated RBC % Neutrophils # (Manual) Lymphocytes # (Manual) Monocytes # (Manual) Eosinophils # (Manual) Basophils # (Manual) Differential Comment Manual Slide Review WBC Morphology Platelet Estimate Platelet Morphology RBC Morph Micro Appear Sodium Potassium Chloride Carbon Dioxide Anion Gap BUN Creatinine Estimated GFR (MDRD) Glucose Lactic Acid Calcium Total Bilirubin AST ALT Alkaline Phosphatase Total Protein Albumin Globulin Albumin/Globulin Ratio Lipase Urine Color DARK YELLOW Urine Clarity HAZY Urine pH 5.5 Ur Specific [place] 1.025 Urine Protein TRACE Urine Glucose (UA) NEGATIVE Urine Ketones TRACE Urine Occult Blood NEGATIVE Urine Nitrite NEGATIVE Urine Bilirubin NEGATIVE Urine Urobilinogen 1 (NORMAL) Ur Leukocyte Esterase SMALL H Urine RBC 0-5 Urine WBC 11-25 H Ur Squamous Epith Cells FEW Squamous Urine Bacteria Few Urine Mucus Few Strands Ur Microscopic Review INDICATED Urine Culture Comments INDICATED - Rads (name of study) CT ab/pel w Radiology: Prelim report reviewed (Impression: 1. New multi-lobulated peripherally enhancing fluid collection in the left abdomen consistent with an abscess. Extensive internal foci of gas likely reflect sequelae of associated bowel perforation, likely involving adjacent loops of small bowel which demonstrate mild wall thickening.), EMP read indepedently, See rad report (Further details are in the preliminary report from the rad as well.) PD MEDICAL DECISION MAKING - ED course Complexity details: reviewed results, re-evaluated patient, considered differential, d/w patient ED course: 59-year-old female with recurrent ovarian cancer with involvement of her small bowel has 2 days of abdominal pain exam is consistent with perforated viscus CT scan consistent with perforated viscus. The patient is tachycardic and hypotensive lactate is over 10. Resuscitation was begun in the emergency department with 2 L of normal saline ceftriaxone and Flagyl. The surgeon Dr. Holley is consulted in the case recommends transfer if possible. He states that he believes this is not a survivable situation and he would like to give the patient every chance possible at a tertiary center. Dr. 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 Alvarado. He is also concerned about survivability of an operation. He recommends admission to the reprint sorter and consultation and perhaps IR drainage. Dr. Serna the reprint sorter is kind enough to accept the patient in transfer for treatment. She recommends nor-epi for pressor if required. Her MAP is running about 67. The patient remains tachycardic and hypotensive. Departure - Departure Disposition: 02 Transfer Acute Care Hosp Clinical Impression: Perforated abdominal viscus Sepsis Qualifiers: Sepsis type: sepsis due to unspecified organism Sepsis acute organ dysfunction status: with acute organ dysfunction Severe sepsis acute organ dysfunction type: acute renal failure Acute renal failure type: unspecified Severe sepsis shock status: with septic shock Qualified Code(s): A41.9 - Sepsis, unspecified organism Ovarian cancer Qualifiers: Laterality: unspecified laterality Qualified Code(s): C56.9 - Malignant neoplasm of unspecified ovary Discharge Date/Time: 06/20/20 16:57
[2020-06-20] MEDS ORDERED: LACTATED RINGERS 1,000 ML IV STA (13:35)
[2020-06-20 13:44] LABS: GLUCOSE, URINE (UA) NEGATIVE (NEGATIVE); KETONES,URINE (UA) TRACE mg/dL (NEGATIVE); LEUKOCYTE ESTERASE, URINE SMALL (NEGATIVE); NITRITE,URINE NEGATIVE (NEGATIVE); OCCULT BLOOD,URINE NEGATIVE (NEGATIVE); PH,URINE 5.5 PH (5.0-7.5); PROTEIN,URINE TRACE mg/dL (NEGATIVE); UROBILINOGEN,URINE 1 (NORMAL) E.U./dL (NORMAL)
[2020-06-20 13:48] LABS: CLARITY,URINE HAZY (CLEAR)
[2020-06-20 13:52] LABS: BILIRUBIN,URINE NEGATIVE (NEGATIVE); ICTOTEST,URINE NEGATIVE
[2020-06-20 13:59] LABS: BACTERIA,URINE Few /HPF (None Seen); MUCUS,URINE Few Strands; RBC,URINE 0-5 /HPF (0-5); SQUAMOUS EPITHELIAL CELL,UR FEW Squamous (<= Few)
--- NOTE | 2020-06-20 14:06 | CT Report ---
PROCEDURE: Abdomen/Pelvis W INDICATIONS: LLQ pain sepsis 2 days. History of ovarian cancer. CONTRAST: IV CONTRAST: Optiray 320 ml: 100 PO CONTRAST: *NO PO CONTRAST TECHNIQUE: After the administration of oral and intravenous contrast, 5 mm thick sections acquired from the diap hragms to the symphysis. 5 mm thick coronal and sagittal reformats were acquired. For radiation dos e reduction, the following was used: automated exposure control, adjustment of mA and/or kV accordin g to patient size. COMPARISON: CT abdomen pelvis 04/13/2020, 12/25/2019. FINDINGS: Image quality: Excellent. ABDOMEN: Lung bases: There is a partially visualized large right pleural effusion which appears increased in s ize from the prior study. Compressive atelectasis is demonstrated in the visualized right lung. Mild dependent atelectasis also demonstrated in the left lung base. Heart size is normal. There is fluid d istention of the visualized distal esophagus with mild concentric esophageal wall thickening. Solid organs: No focal intrahepatic mass lesion identified. There is a large right perihepatic locul ated fluid collection with associated mass effect on the right hepatic lobe which has increased in si ze. New small foci of gas are demonstrated within the fluid collection. The gallbladder is surgically absent. Biliary system is non dilated. Pancreas enhances normally. No adrenal nodules. Kidneys de monstrate no hydronephrosis. Peritoneum and bowel: As noted above, there is a large right-sided loculated fluid collection which has increased in size. This measures approximately 15.4 x 5.3 x 21.6 cm in dimension. In addition, wi thin the left mid abdomen and left lower quadrant, there is a multilobulated peripherally enhancing f luid collection tracking along multiple small bowel loops. The collection measures approximately 13.8 cm in anteroposterior extent by 7.2 cm in maximal width by 16.5 cm in craniocaudal extent. Multiple internal foci of gas are demonstrated within this collection including nondependent layering gas ante riorly. The collection appears to communicate with a component anteriorly in the left lower quadrant extending to the ventral abdominal wall. Given the adjacent loops of small bowel as well as amount of gas in the collection, the findings suggest sequelae of small bowel perforation. There is mild segmental wall thickening of a few associated small bowel loops in the left abdomen. Sm all and large bowel loops are nondistended. There are bowel sutures in the sigmoid colon. Soft tissue thickening within the mesentery and omentum anteriorly in the left abdomen is redemonstra sandy consistent with peritoneal carcinomatosis. This appears similar to the prior study. Nodes and vessels: No retroperitoneal or mesenteric adenopathy by size criteria. Aorta and inferior vena cava are normal in size. Miscellaneous: No ventral hernias. There are postsurgical changes within the ventral abdominal wall with a midline surgical scar. PELVIS: Genitourinary: Bladder wall thickness is normal. Miscellaneous: No inguinal hernias or adenopathy. Bones: No suspicious bony lesions. No vertebral body compression fractures. There are bilateral par s defects at L5 with grade 1 anterolisthesis. Findings are similar to the prior study. IMPRESSION: 1. New multilobulated peripherally enhancing fluid collection in the left abdomen consistent with an abscess. Extensive internal foci of gas likely reflect sequelae of associated bowel perforation, like ly involving adjacent loops of small bowel which demonstrate mild wall thickening. 2. Increase in size of a right loculated fluid collection demonstrating extrinsic mass effect on the right hepatic lobe. A few small foci of gas are also demonstrated within this collection, likely refl ecting communication with the left abdominal collection. 3. Infiltrative soft tissue redemonstrated within the omentum and mesentery in the left abdomen consi stent with peritoneal carcinomatosis. Findings are similar to the prior study. 4. Large right pleural effusion, increased in size from the prior study, with associated compressive atelectasis. Findings discussed with Dr. Calderon on 06/20/2020 at 1:55 PM. 5. Fluid distention of the visualized esophagus with mild wall thickening suggestive of esophagitis p ossibly due to reflux. Reviewed by: Matthew Chou MD on 06/20/2020 2:05 PM PDT Approved by: Matthew Chou MD on 06/20/2020 2:05 PM PDT Station ID: [id number]
[2020-06-20 15:05] VITALS: BP 88/62
--- NOTE | 2020-06-20 21:32 | CONSULTATION NOTE ---
Referring Provider Name of Referring Provider:: ED Consult Date: 06/20/20 (Patient seen earlier today. delayed entry) History of Present Illness - History Obtained From History obtained from: Patient and as well as ED Exam Limitations: none - History of Present Illness HPI Comment/Other: Seen today with significant abdominal pain. She has history of metastatic ovarian cancer. They state she has been getting chemotherapy over the last 4 years. She recently had chemotherapy. Surgical history consists of TRISHA/ BSO and lap edith. PMH is significant for 30 day hospitalization at [facility] last year for small bowel obstruction. She has had several ct scans over the last 6 months which show progressive disease with ascites and growing right pleural effusion. Ct scan today shows evidence of small bowel obstruction and free air. Surgery was consulted. She was seen urgently earlier today and condition discussed with her and her . 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 : reports: None HEENT: reports: None Psych: reports: None Musculoskeletal: reports: Osteoarthritis Derm: reports: None MRSA Hx?: No - Past Surgical History General: reports: Cholecystectomy /ENGINEERING RECRUITER: reports: Hysterectomy, Oophrectomy, Other - Family & Social History Family History: Mother: , CVA/TIA (hx kidney transplant; 78), Father: , Cancer (kidney and bladder), Brother: Alive and Well (alive and well x 2) - Substance History Use: Uses substance without health or social issues: NONE - POLST Patient has POLST: No POLST Status: Full Code Meds/Allgy - Home Medications Home Medications: Ambulatory Orders Medication Instructions Recorded Confirmed LORazepam [Ativan] 0.5 mg PO Q6H PRN 12/21/19 05/16/20 Prochlorperazine Maleate 10 mg PO Q4HR PRN 12/21/19 05/16/20 [Compazine] Losartan Potassium 100 mg PO DAILY 12/28/19 05/16/20 Metoprolol Tartrate 100 mg PO DAILY 12/28/19 05/16/20 Omeprazole 20 mg PO DAILY 12/28/19 05/16/20 Ondansetron [Ondansetron Odt] 8 mg PO BID 12/28/19 05/16/20 Pravastatin [Pravachol] 40 mg PO DAILY 12/28/19 05/16/20 Sertraline [Zoloft] 50 mg PO DAILY 12/28/19 05/16/20 OLANZapine [Zyprexa Zydis] 5 mg PO QPM PRN 01/03/20 05/16/20 Gabapentin 600 mg PO DAILY 01/25/20 05/16/20 Amlodipine Besylate 10 mg PO DAILY 03/07/20 05/16/20 - Allergies Allergies/Adverse Reactions: Allergies Allergy/AdvReac Type Severity Reaction Status Date / Time paclitaxel [From Taxol] Allergy Severe Anaphylaxis Verified 06/20/20 12:06 cefdinir AdvReac Severe Nausea Verified 06/20/20 12:06 clindamycin AdvReac Severe Nausea Verified 06/20/20 12:06 levofloxacin AdvReac Intermediate Nausea Verified 06/20/20 12:06 sulfamethoxazole AdvReac Intermediate Hallucinati Verified 06/20/20 12:06 [From Bactrim] ons meloxicam AdvReac Mild Nausea Verified 06/20/20 12:06 Penicillins AdvReac Mild Nausea Verified 06/20/20 12:06 metformin AdvReac severe abd Verified 06/20/20 12:06 pain Exam - Vital Signs Vital Signs: Vital Signs x48h Temp Pulse Resp BP Pulse Ox 06/20/20 15:00 37.5 C 146 H 24 88/62 L 92 06/20/20 14:44 141 H 33 H 84/54 L 92 06/20/20 13:44 136 H 28 H 80/58 L 94 - Physical Exam General Appearance: positive: No acute distress, Alert, Lethargic Eyes Bilateral: positive: Normal inspection Neck: positive: No JVD Abdomen: positive: Other (no signifiant distension) Conclusion and Plan - Lab Results Laboratory Results 06/20/20 13:20: Urine Color DARK YELLOW, Urine Clarity HAZY, Urine pH 5.5, Ur Specific [place] 1.025, Urine Protein TRACE, Urine Glucose (UA) NEGATIVE, Urine Ketones TRACE, Urine Occult Blood NEGATIVE, Urine Nitrite NEGATIVE, Urine Bilirubin NEGATIVE, Urine Urobilinogen 1 (NORMAL), Ur Leukocyte Esterase SMALL H, Urine RBC 0-5, Urine WBC 11-25 H, Ur Squamous Epith Cells FEW Squamous, Urine Bacteria Few, Urine Mucus Few Strands, Ur Microscopic Review INDICATED, Urine Culture Comments INDICATED 06/20/20 12:25: Lactic Acid > 10.0 H* 06/20/20 12:25: Sodium 137, Potassium 3.6, Chloride 98 L, Carbon Dioxide 14 L, Anion Gap 25.0 H, BUN 29 H, Creatinine 3.1 H, Estimated GFR (MDRD) 15 L, Glucose 298 H, Calcium 9.6, Total Bilirubin 2.1 H, AST 26, ALT 16, Alkaline Phosphatase 50, Total Protein 7.3, Albumin 3.8, Globulin 3.5, Albumin/Globulin Ratio 1.1, Lipase 40 06/20/20 12:10: WBC 5.4, RBC 4.15 L, Hgb 12.2, Hct 38.2, MCV 92.0, MCH 29.4, MCHC 31.9 L, RDW 17.4 H, Plt Count 83 L, MPV 11.2 H, Neut # (Auto) Not Reportable, Lymph # (Auto) Not Reportable, [place] # (Auto) Not Reportable, Eos # (Auto) Not Reportable, Baso # (Auto) Not Reportable, Absolute Nucleated RBC Not Reportable, Total Counted 100, Band Neuts % (Manual) 30 H, Abnorm Lymph % (Manual) 0, Nucleated RBC % Not Reportable, Neutrophils # (Manual) 2.5, Lymphocytes # (Manual) 2.6, Monocytes # (Manual) 0.3, Eosinophils # (Manual) 0.0, Basophils # (Manual) 0.0, Differential Comment MANUAL DIFFERENTIAL, Manual Slide Review Indicated, WBC Morphology NORMAL APPEARANCE, Platelet Estimate DECREASED (<130,000), Platelet Morphology NORMAL APPEARANCE, RBC Morph Micro Appear 1+ POLYCHROMASIA - EKG Results EKG Findings: Advancing metastatic ovarian cancer despite chemotherapy with progressive ascites and right pleural effusion. Evidence of small bowel obstruction with free air which very well is from the small bowel. This was discussed with her and her . We discussed might not be able to repair the intestine and this might not be a survivable problem. Options are urgent laparotomy at [facility] vs transfer to [facility], her desired and past hospital for her ovarian cancer treatment. We also discussed if she had urgent surgery at [facility] she would still need to transfer to a hospital which can offer a higher level of care. She stabilized with iv fluids and was accepted for transfer at [facility].
== END 2020-06-20 16:57 | disposition short-term general hospital (02) ==
LOC: ED 12:02
DX: A41.9 Sepsis, unspecified organism (principal); R65.21 Severe sepsis with septic shock; N17.9 Acute kidney failure, unspecified; C56.9 Malignant neoplasm of unspecified ovary; C79.9 Secondary malignant neoplasm of unspecified site; J90 Pleural effusion, not elsewhere classified; K56.609 Unspecified intestinal obstruction, unspecified as to partial versus complete obstruction; K65.1 Peritoneal abscess; R18.8 Other ascites; I10 Essential (primary) hypertension; E11.9 Type 2 diabetes mellitus without complications; R00.0 Tachycardia, unspecified
CPT/HCPCS: 36415; 74177; 80053; 81001; 83605; 83690; 85025; 87040; 87086; 93005; 96365; 96366; 96368; 99284; 99285; J7120; Q9967; 81003